=== PATIENT | female | born 1940 | race Caucasian/White ===

== ENCOUNTER 2018-01-20 06:30 | Day surgery (SDC) | payer BC ==
[2018-01-06 14:49] LABS: Absolute Lymphocytes (CBC) 0.9 K/uL (0.7-4.9); Absolute Monocytes 0.4 K/uL (0.1-1.3); Absolute Neutrophil 2.4 K/uL (1.8-8.0); Basophils % 0.9 % (0-1.3); Eosinophils % 1.6 % (0-4.4); Hematocrit 39.8 % (36.0-45.0); Lymphocytes % 23.9 % (15.3-44.8); MCH 32.2 pg (27.0-35.0); MCV 97.2 fL (80-100); MPV 9.3 fL (7.6-11.3)
[2018-01-06 14:52] LABS: Protime INR 1.23
[2018-01-06 17:43] LABS: Potassium 3.7 mmol/L (3.5-5.1)
[2018-01-07 10:39] LABS: Urine Appearance CLEAR; Urine Bilirubin NEGATIVE (NEG); Urine Blood NEGATIVE (NEG); Urine Color YELLOW; Urine Glucose NEGATIVE (NEG); Urine Protein NEGATIVE (NEG); Urine Urobilinogen 0.2 mg/dL (0.2-1.0)
[2018-01-07 10:42] LABS: Urine Microscopic Reflex NO UMIC
--- NOTE | 2018-01-08 06:59 | EKG ---
Test Date: 2018-01-06 Test Time: 13:47:21 Chocolate Molder: MYNOR MEASUREMENT RESULTS: Intervals: Rate: 73 UT: 176 QRSD: 104 QT: 376 QTc: 414 [place]: P: 56 UT: 176 QRS: 78 T: 50 INTERPRETIVE STATEMENTS: Normal sinus rhythm Possible Lateral infarct, age undetermined Abnormal ECG Compared to ECG 06/04/2012 08:33:25 Myocardial infarct finding now present Electronically Signed On 01-08-18 06:55:28 CDT by Francis Pacheco
--- OUTSIDE RECORDS SUMMARY | 2018-01-20 06:32 | XMS REPORT | Continuity of Care Document ---
:1940 Author Organization Interface Problems Problem Status Onset Classification Date Comments Source Date Reported G20.[address] Spinal Resolved Problem 01/02/2017 Pundendal [facility] nerve root nerve Medical finding<sup entrapment Center >1</sup> surgery (sacral nerve knotted and release done) Medications Medication Details Route Status Patient Ordering Order Source Instructions Provider Date Allergies, Adverse Reactions, Alerts Substance Category Reaction Severity Reaction Status Date Comments Source type Reported acetaminophen Assertion Drug Active [facility] aspirin Assertion Drug Active [facility] codeine Assertion Drug Active [facility] Darvocet A500 Assertion Drug Active [facility] Neurontin Assertion Drug Active [facility] NKDA Assertion Drug Active [facility] Talwin Assertion Drug Active [facility] traMADol Assertion Drug Active [facility] Vicodin Assertion Drug Active [facility] Immunizations Immunization Date Given Site Status Last Updated Comments Source Results Order Results Value Reference Date Interpretation Comments Source Name Range Brain Brain EXAM: NM Brain Imaging SPECT 12/30 - [facility] scan scan /2016 - Medical SPECT SPECT NM This report was dictated by a Radio Frequency Engineer/ Fellow. I have personally reviewed the images as Center NM well as the Resident's interpretation and agree with the findings. DATE: 12/30/2016 at 1456 hours Read by: Daniel Somers MD Resident: Daniel Somers MD Dictated Date/time: 12/30/16 16:25 Electronically Signed by: Nelly Coello MD 12/30/16 16:46 FINAL REPORT INDICATION: evaluate for Parkinson disease COMPARISON: None TECHNIQUE: After intravenous administration of 4.6 mCi of I-123 Ioflupane, delayed SPECT images of the head were obtained at 4 hours post injection. FINDINGS: Right striatum: There is absent tracer uptake in the right putamen with a Z score of -1.95 (Z scores represent standard deviation from normal age match population and are significant if less than -1.6). There is mild/moderate decreased tracer uptake in the right caudate with a Z score of -0.57. The right striatum contributes 38% of the remaining dopamine transporter function with a Z score of -1.51. Left striatum: Markedly decreased tracer uptake in the left putamen with a Z score of - 0.99. Tracer uptake is normal in the left caudate with a Z score of 0.42. The left striatum contributes 62% of the remaining dopamine transporter function with a Z score of -0.4 . The remainder of tracer distribution in background brain parenchyma is within normal limits. IMPRESSION: The scan findings are suggestive of dysfunction of the dopamine transporters in the bilateral putamina and right caudate suggestive of Parkinson disease. Vital Signs Vital Sign Value Date Comments Source Encounters Location Location Encounter Encounter Reason Attending ADM DC Status Source Details Type Number For Provider Date Date Visit [facility] Outpatient [id number] Edy Hung 12/30 12/31 [facility] Danie Mcnamara Jr /2016 [facility] Procedures Procedure Code Date Perfomer Comments Source Abdominal [id number] for Endometriosis - [facility] hysterectomy<tolliver done August 1973 Also Medical p>1, 2</sup> endometriosis Center surgery done in October 1978 Appendectomy<tolliver [id number] June 1963 [facility] p>3</sup> [facility] Carpal tunnel [id number] October 1998 for right [facility] release<sup>4</ hand Medical sup> Center Carpal tunnel [id number] September 1998 for left [facility] release<sup>5</ hand Medical sup> Center Hip [id number] August 2008 - right [facility] replacement<sup hip Medical >6</sup> Center Laminectomy<sup [id number] June 2007 Herniated disc [facility] >7</sup> November 2007 Herniated disc [facility] Lumbar spinal [id number] January 2009 (L4 - [facility] fusion<sup>8</s L5) Medical up> Center Ovarian [id number] abdominal surgery - [facility] cystectomy<sup> October 1969 Medical 9</sup> Center Release of [id number] July 2010 [facility] trigger Medical thumb<sup>10</s Center up> Tonsillectomy<s [id number] January 1964 [facility] up>11</sup> Medical Center
[2018-01-20] MEDS ORDERED: CEFTRIAXONE/SWI 1gm 1 GM/10 ML SYR IV SCH (07:30)
[2018-01-20] MEDS ORDERED: Ringers Lactate 1,000 ML IV ONE (07:49)
[2018-01-20] MEDS ORDERED: NS 0.9% VIAL 20 ML ONE (07:50)
[2018-01-20] MEDS ORDERED: NA CHLORIDE 0.9% 1,000 ML ONE (07:50)
[2018-01-20] MEDS: BOTU TOX TYPE A 100 UNIT/VIAL ID ONE ×2 (07:58→09:25)
[2018-01-20] MEDS ORDERED: LIDOCAINE 2% MPF 5 ML VIAL ONE (09:00)
[2018-01-20] MEDS ORDERED: PROPOFOL 200 MG/20 ML VIAL IV ONE (09:00)
[2018-01-20] MEDS ORDERED: MIDAZOLAM HCL 2 MG/2 ML INJ ONE (09:00)
--- NOTE | 2018-01-20 11:57 | OP ---
Date of Procedure: 01/20/2018 Surgeon: Smitha Cadena MD Counterperson: None. Preoperative Diagnosis: Refractory overactive bladder. Postoperative Diagnosis: Refractory overactive bladder. Procedures Performed: Cystoscopy, injection of Botox in the bladder. Anesthesia: MAC. Complications: None. Estimated Blood Loss: Minimal. Drains: None. Specimens: None. Indications For Procedure: The patient is a 77-year-old who has severe symptoms of urgency and frequ ency with urgency also associated with urgency, urinary incontinence, diagnosed with overactive bladd er. Lifestyle modifications that have been tried, she tried on anticholinergic and beta 3 agonist, b oth of them were ineffective to control her symptoms adequately. We talked about sacral neuromodulat ion and Botox injections, and she understood the benefits and risks of both, urinary retention and re current bladder infections were all discussed. She decide to proceed with Botox injections so I cons ented her. She also has some adrenal insufficiency for which she takes hydrocortisone or fludrocorti sone. So, this was discussed with Anesthesia and it was thought that it was not necessary to give he r stress dose of steroids to help in this procedure. She was carefully monitored. Her blood pressur e stayed stable during the procedure. She also had medical clearance with her timber skidder, Dr. Puri. Procedure In Detail: After the patient was brought back to the OR, after re-consenting the patient t chon, she was placed in a supine fashion on the operating table. MAC was given, she was placed in do rsal lithotomy position using Anson stirrups. Prep of the vulva, vagina, and perineum were done. Sh e was draped appropriately. Cystoscopy with 17-Lithuanian sheath, 30-degree lens, and normal saline were done. The bladder was filled to about 250 mL. There was adequate distention without overdistention . So at this point, 100 units of Botox were diluted in 10 mL of normal saline to prepare a solution and this was loaded in a syringe. The operative port of the cystoscope was used to insert the needle . The needle was set at 4 mm for depth above the level of the trigone after the trigone and both ure ters were identified, 7 injections in each row were placed, 20 injections of the Botox each containin g 0.5 mL, 2 further were placed to flush the solution in the needle catheter. So, 22 injections were finally given in 3 rows. The patient tolerated the procedure well. There was minimal bleeding. He r bladder was irrigated and drained, then repeat cystoscopy was performed. No evidence of any bleedi ng. No tumors. The rest of the bladder was unremarkable completely. The bladder was then drained a nd she was recovered from anesthesia. Instrument, needle, and sponge counts were done and were corre ct at the end of the case. The patient tolerated. She will follow up with me in 5 days for a bladde r voiding trial and in 10 days for first week postop. She has Macrobid, was prophylaxis that was sta rted at home, and she will continue that 100 mg daily for 6 more days. DES/VITA Voice ID: [id number] Report ID: [id number]
== END 2018-01-20 10:29 | disposition home or self-care (01) ==
LOC: OR 06:30
PROVIDERS: ATTEND Obstetrics & Gynecology
PROC: 0TVC8ZZ Restriction of Bladder Neck, Via Natural or Artificial Opening Endoscopic (ICD-10-PCS; principal; 2018-01-20 08:30)
DX: N32.81 Overactive bladder (principal); E03.9 Hypothyroidism, unspecified; I48.91 Unspecified atrial fibrillation; K21.9 Gastro-esophageal reflux disease without esophagitis; I95.9 Hypotension, unspecified; M79.7 Fibromyalgia; G20 Parkinson's disease; I73.00 Raynaud's syndrome without gangrene; Z79.01 Long term (current) use of anticoagulants; Z88.6 Allergy status to analgesic agent; Z80.3 Family history of malignant neoplasm of breast; Z82.49 Family history of ischemic heart disease and other diseases of the circulatory system
CPT/HCPCS: 36415; 80048; 81003; 85025; 85610; 85730; 86850; 86900; 86901; 93005; J0585; J0696; J2250; J7030

== ENCOUNTER 2018-12-23 08:24 | Day surgery (SDC) | payer BC ==
--- OUTSIDE RECORDS SUMMARY | 2018-12-23 08:27 | XMS REPORT ---
:1940 [facility] Address [address] [place] [address] Dr. Burnett [address] [place] [id number] Care Team Providers Name Role Phone Unavailable Unavailable Unavailable Problems This patient has no known problems. Allergies, Adverse Reactions, Alerts This patient has no known allergies or adverse reactions. Medications This patient has no known medications.
--- OUTSIDE RECORDS SUMMARY | 2018-12-23 08:27 | XMS REPORT | Continuity of Care Document ---
:1940 Author Organization [employer] Care Team Providers Name Role Phone [employer] Unavailable Unavailable Problems Problem Status Onset Classification Date Comments Source Date Reported G20.[address] Spinal Resolved Problem 01/02/2017 Pundendal [facility] nerve root nerve Medical finding1 entrapment Center surgery (sacral nerve knotted and release done) Medications No Data Provided for This Section Allergies, Adverse Reactions, Alerts Substance Category Reaction Severity Reaction Status Date Comments Source type Reported acetaminophen Assertion Drug Active [facility] aspirin Assertion Drug Active [facility] codeine Assertion Drug Active [facility] Darvocet A500 Assertion Drug Active [facility] Neurontin Assertion Drug Active [facility] Talwin Assertion Drug Active [facility] traMADol Assertion Drug Active [facility] Vicodin Assertion Drug Active [facility] Immunizations No Data Provided for This Section Results No Data Provided for This Section Pathology Reports No Data Provided for This Section Diagnostic Reports Report Value Date Source Brain scan SPECT NM EXAM: [facility] Imaging SPECT 12/30/2016 [facility] DATE: 12/30/2016 at 1456 hours Center INDICATION: evaluate for Parkinson disease COMPARISON: None TECHNIQUE: After intravenous administration of 4.6 mCi of I-123 Ioflupane, delayed SPECT images of the head were obtained at 4 hours post injection. FINDINGS: Right striatum: There is absent tracer uptake in the right putamen with a Z score of -1.95 ( Z scores represent standard deviation from normal age [...] and right caudate suggestive of Parkinson disease. Consultation Notes No Data Provided for This Section Discharge Summaries No Data Provided for This Section History and Physicals No Data Provided for This Section Vital Signs No Data Provided for This Section Encounters Location Location Encounter Encounter Reason Attending ADM DC Status Source Details Type Number For Provider Date Date Visit [facility] Out[facility] [id number] Edy Hung 12/30 12/31 [facility] Danie Anders Jr /2016 [facility] Procedures Procedure Code Date Perfomer Comments Source Abdominal [id number] for Endometriosis - [facility] hysterectomy<tolliver done August 1973 Also Medical p>1, 2</sup> endometriosis Center surgery done in October 1978 Appendectomy<tolliver [id number] June 1963 [facility] p>3</sup> [facility] Carpal tunnel [id number] October 1998 for right [facility] release<sup>4</ hand Medical sup> Center Carpal tunnel [id number] September 1998 for left [facility] release<sup>5</ hand Medical sup> Center Hip [id number] August 2008 - right [facility] replacement<sup hip Medical >6</sup> Center Laminectomy<sup [id number] June 2007 Herniated disc [facility] >7</sup> November 2007 Herniated disc [facility] Lumbar spinal [id number] January 2009 (L4 - [facility] fusion<sup>8</s L5) Medical up> Center Ovarian [id number] abdominal surgery - [facility] cystectomy<sup> October 1969 Medical 9</sup> Center Release of [id number] July 2010 [facility] trigger Medical thumb<sup>10</s Center up> Tonsillectomy<s [id number] January 1964 [facility] up>11</sup> Medical Center Assessment and Plan No Data Provided for This Section Plan of Care No Data Provided for This Section Social History Social History Date Source Social History TypeResponse 12/31/2016 [facility] Family History No Data Provided for This Section Advance Directives No Data Provided for This Section Functional Status No Data Provided for This Section
--- OUTSIDE RECORDS SUMMARY | 2018-12-23 08:27 | XMS REPORT | Summary of Care ---
:1940 Author Organization [facility] Address [address] [place] [address] Care Team Providers Name Role Phone Breanne Campbell MD Primary Care Provider Encounter Details Date Type Department Care Team Description 12/16/2018 Orders Only [facility] Doctor Unassigned, No 301 [facility] Name [place] [phone] [facility] [place] [id number] Allergies Active Allergy Reactions Severity Noted Date Comments Codeine Nausea and/or Vomiting 01/13/2018 Pentazocine Lactate Hives 01/13/2018 Rapid heart rate, itching Tramadol Dizziness, 01/13/2018 Hallucinations, Itching Acetaminophen Hypertension 01/13/2018 Hives, itching Tramadol Hcl Dizziness, 01/13/2018 Hallucinations, Itching Hydrocodone-Acetaminophe Hives, Itching, 01/13/2018 n Hypertension documented as of this encounter (statuses as of 12/20/2018) Medications Medication Sig Dispensed Refills Start Date End Date Status propafenone 150 mg Take 150 mg by 0 Active tablet mouth 3 (three) times daily. XARELTO 20 mg tablet TAKE 1 TABLET BY 3 10/26/2017 Active MOUTH EVERY DAY WITH EVENING MEAL docusate sodium (COLACE Take by mouth 2 0 Active ORAL) (two) times daily. loratadine (CLARITIN) Take 10 mg by 0 Active 10 mg tablet mouth daily. simvastatin 10 mg Take 10 mg by 0 Active tablet mouth at bedtime. sulfamethoxazole-trimet TAKE 1 TABLET BY 0 06/22/2018 Active hoprim 800-160 mg per MOUTH TWICE A tablet DAY FOR 7 DAYS amitriptyline 10 mg TAKE 1 TABLET BY 0 06/22/2018 Active tablet MOUTH AT BEDTIME FOR 30 DAYS conjugated estrogens Insert 1 g into 30 g 5 07/15/2018 Active 0.625 mg/gram vaginal vagina creamIndications: SEE-INSTRUCTIONS Postmenopausal atrophic . Use small vaginitis amount twice a week vaginally cyanocobalamin, vitamin Take by mouth. 0 Active B-12, (VITAMIN B12 ORAL) levothyroxine 50 mcg Take 1 tablet by 90 tablet 3 07/20/2018 Active tablet mouth every morning. fludrocortisone 0.1 mg Take 0.1 mg by 0 Active tablet mouth as needed. carbidopa-levodopa Take 1 capsule 90 capsule 3 10/11/2018 Active (RYTARY) 61.25-245 mg by mouth 3 CpSR (three) times daily. documented as of this encounter (statuses as of 12/20/2018) Active Problems Problem Noted Date Pulmonary nodule 06/27/2018 Overview: Per CT 05/2018 Bronchiectasis 06/27/2018 Overview: Per CT 05/2018 B12 deficiency 05/10/2018 Overview: B12 <400 Right upper quadrant abdominal pain 04/27/2018 Primary hypothyroidism 04/21/2018 Blood pressure elevated without history of HTN 04/21/2018 Parkinson's disease 04/20/2016 Interstitial cystitis Atrial fibrillation Arthritis Allergic rhinitis Fibromyalgia Hyperlipidemia Osteoporosis Hiatal hernia documented as of this encounter (statuses as of 12/20/2018) Social History Tobacco Use Types Packs/Day Years Used Date Never Smoker Smokeless Tobacco: Never Used Alcohol Use Drinks/Week oz/Week Comments No Sex Assigned at Date Recorded Not on file Job Start Date Occupation Industry Not on file Not on file Not on file Travel History Travel Start Travel End No recent travel history available. documented as of this encounter Last Filed Vital Signs Not on filedocumented in this encounter Plan of Treatment Date Type Specialty Care Team Description 01/27/2019 Office Visit Pulmonary Disease Cori Bates DO [address] [place] [address] 02/10/2019 Office Visit Urology Francesco Arita MD [address] [phone] 07/25/2019 Office Visit Endocrinology Diabetes & Rafia Finn MD Metabolism Health Maintenance Due Date Last Done Comments DTaP,Tdap,and Td Vaccines (1 - Tdap) 1961 Zoster Recombinant Vaccine (SHINGRIX) (1 of 2) 1992 Medicare Wellness Visit 2007 Osteoporosis Screening 2007 PNEUMOCOCCAL VACCINES 65+ (1 of 2 - PCV13) 2007 INFLUENZA VACCINE (#1) 2018 02/03/2018 documented as of this encounter Procedures Procedure Name Priority Date/Time Associated Diagnosis Comments REFERRAL- Routine 12/16/2018 12:01 AM CDT REQUEST/RESPONSE documented in this encounter Results Not on filedocumented in this encounter Insurance Payer Benefit Plan Subscriber ID Effective Dates Phone Address Type / Group [facility] [id number] 2012-Madeline [phone] [address] PPO/POS [place] - OUT OF [id number] [place] [address] documented as of this encounter
[2018-12-23] MEDS ORDERED: Zoledronic Acid/Mannitol/Water 5 MG/100 ML INFUS.BOT IV ONE (08:45)
== END 2018-12-23 09:25 | disposition home or self-care (01) ==
LOC: DS 08:24
PROVIDERS: ATTEND Obstetrics & Gynecology
DX: M81.0 Age-related osteoporosis without current pathological fracture (principal)
CPT/HCPCS: 96365; J3489

== ENCOUNTER 2020-03-21 07:44 | Day surgery (SDC) | payer BC ==
--- OUTSIDE RECORDS SUMMARY | 2020-03-21 07:48 | XMS REPORT | Continuity of Care Document ---
:1940 Author Organization [facility] Information [place] Care Team Providers Name Role Phone [facility] Information [place] Unavailable Un available Problems Problem Status Onset Classification Date Comments Sour e Date Reported Hypokalemia 04/18/ / [facility] and 2019 0 SENT BY KOLE DIAMOND Active 04/18/ Raoul rial POTASSIUM 2018 [place] UNK Active [facility] 2018 Danie CYSTRO Active [facility] 2018 Danie R33.9 - RETENTION OF Active OPID URINE, UNSPECIFIE R 2019 [place] G20.[address] Insomnia Active [facility] 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[facility] Meralgia Active [facility] Paresthetica 3 [facility] Restless Legs Active [facility] Syndrome 3 [facility]icians Atrial fibrillation Resolved Problem Medical (disorder) 0 Group, Sarah Gaona Cystitis (disorder) Resolved Problem Medical 0 Group, Sarah Gaona Disease of thyroid Resolved Problem HYPOTHYROID ISM Medical gland (disorder) 0 Doug up, Sarah Gaona Hypercholesterolemia Resolved Problem Medical (disorder) 0 Group, Sarah Gaona Parkinson's disease Resolved Problem Medical (disorder) 0 Group, Sarah Gaona Spinal nerve root Resolved Problem [place] [facility] Medical finding (finding) 0 entrapment G mon[place], surgery (sacral [place] nerve knotted [facility] done) Sarah Gaona Medications Medication Details Route Status Patient Ordering Order Source Instructions Provider Date dexamethasone Route: IV, Inactive [place] (ANES) Drug form: 2019 INJ, ONCE, Stop date: 04/22/19 10:27:00 ACUTE CARE ASSISTANT glycopyrrolate Route: IV, Inactive [place] (ANES) Drug form: 2020 INJ, ONCE, Stop date: 04/22/19 10:22:00 ACUTE CARE ASSISTANT ondansetron Route: IV, Inactive [place]la and (ANES) Drug form: 2019 INJ, ONCE, Stop date: 04/22/19 10:16:00 ACUTE CARE ASSISTANT fentaNYL (ANES) Route: IV, Inactive [place] Drug form: 2019 INJ, ONCE, Stop date: 04/22/19 10:11:00 ACUTE CARE ASSISTANT propofol (ANES) Route: IV, Inactive [place] Drug form: 2019 INJ, ONCE, Stop date: 04/22/19 10:11:00 ACUTE CARE ASSISTANT lidocaine (ANES) Route: IV, Inactive [place] Drug form: 2019 INJ, ONCE, Stop date: 04/22/19 10:11:00 ACUTE CARE ASSISTANT ciprofloxacin Route: IV, Inactive [place] (ANES) Drug form: 2019 INJ, ONCE, Stop date: 04/22/19 10:01:00 ACUTE CARE ASSISTANT Lactated Ringers Route: IV, Inactive [place] Injection IV Total 2020 (ANES) 1000 mL Volume: 1,000, Start date: 04/22/19 9:26:00 ACUTE CARE ASSISTANT, Stop date: 04/22/19 10:26:00 ACUTE CARE ASSISTANT Calcium Chloride 1,000 mL, Inactive [place] 0.0014 MEQ/ML / Rate: 75 2020 Potassium ml/hr, Chloride 0.004 Infuse over: MEQ/ML / Sodium 13.3 hr, Chloride 0.103 Route: IV, MEQ/ML / Sodium Dosing Lactate 0.028 Weight 50 MEQ/ML Injectable kg, Total Solution Volume: 1,000, Start date: 04/22/19 7:26:00 ACUTE CARE ASSISTANT, Duration: 30 day, Stop date: 05/22/19 7:25:00 ACUTE CARE ASSISTANT, 1.48, m2, 0 Hydralazine Notes: (Same Inactive [place] as: 2019 Apresoline) Push over 5 minutes Metoprolol Notes: (Same Inactive [place] as: 2020 Lopressor) Push over 2 minutes Hydromorphone Notes: Same Inactive [place] as: Dilaudid 2020 Flumazenil Notes: (Same Inactive [place] as: 2020 Romazicon) Naloxone Notes: Same Inactive [place] d as Narcan 2020 Meperidine Notes: (Same Inactive [place] as: Demerol) 2020 "Use Precaution in Elderly, Seizure disorders, and Renal impairment&q uot; Ondansetron Notes: (Same Inactive [place] as: Zofran) 2019 MEDICATION WASTE Product Size: 4 mg Product Wasted: ___ mg Potassium Notes: Inactive [place] Chloride Infuse at a 2019 rate of 10 mEq/hr. (Same as: KCL) Sodium Chloride 1,000 mL, Inactive [place] 0.9% (Bolus) IV 1000 ml/hr, 2019 Infuse Over: 1 hr, Route: IV, 1,000, Drug form: INJ, ONCE, Priority: STAT, Dosing Weight 50 kg, Start date: 04/18/19 20:29:00 ACUTE CARE ASSISTANT, Stop date: 04/18/19 20:29:00 ACUTE CARE ASSISTANT, 0 potassium Notes: (Same Inactive [place] and chloride 20 mEq as: K-Dur 2019 oral tablet, 20) "Do Not extended release Crush" Give (KCL) with food and full glass of water For patients unable to swallow tablet, dissolve in one half glass of water. Allow about 2 minutes for the tablets to disintegrate . Stir before giving to prepare slurry and administer. Please exclude Patient&#[id number];s with feeding tube less than 14 Chinese (Dobhoff, J-tube etc) and pediatric and patients. Magnesium Sulfate Notes: Inactive [place] WASTE: F/P - 2019 Sink; E - [employer] Ciprofloxacin 500 500 mg = 1 Active Medical MG Oral Tablet tab, PO, 2019 Group [Cipro] Q12H, start taking on 04/19/19, X 3 day, # 6 tab, 0 Refill(s), Pharmacy: [facility]/pharmacy #[id number] cefpodoxime 100 100 mg = 1 Active Me dical mg oral tablet tab, PO, 2019 Group Q12H, X 7 day, # 14 tab, 0 Refill(s), Pharmacy: [facility]/pharmacy #[id number] Thyroxine Daily, 0 Active Medical Refill(s) 2018 Group Propafenone PO, 0 Active Medical Refill(s) 2019 Group Xarelto PO, 0 Active Medical Refill(s) 2018 Group Fludrocortisone 0.1 mg, PO, Active M edical Daily, 0 2018 Group Refill(s) Simvastatin PO, 0 Active Medical Refill(s) 2018 Group 8 HR Carbidopa 1 cap, PO, Active Med ical 61.25 MG / TID, 0 2018 Group Levodopa 245 MG Refill(s) Extended Release Oral Capsule [Rytary] Colace 2-in-1 PO, Bedtime, Active Me dical 0 Refill(s) 2018 Group Claritin Daily, 0 Active Medical Refill(s) 2018 Group gabapentin PO, 0 Active Medical Refill(s) 2018 Group Amitriptyline HCl ; Start Active 25 MG Oral Tablet Date: 2012 Physic ians 07/23/2012; End Date: (Active) Boniva 150 MG ; Start Active Oral Tablet Date: 2012 Physicians 06/11/2012 (Active) PredniSONE 20 MG ; Start Active Oral Tablet Date: 2012 Physicians 06/11/2012 (Active) LORazepam 1 MG ; Start Active Oral Tablet Date: 2012 Phys[facility] 06/11/2012 (Active) Crestor 10 MG ; Start Active Oral Tablet Date: 2011 [facility] 04/29/2011 (Active) Allergies, Adverse Reactions, Alerts Substance Category Reaction Severity Reaction Status Date Comments S ource type Reported Codeine drug drug Active [facility] Sulfate TABS allergy allergy Phy sicians TraMADol HCl drug drug Active UT TABS allergy allergy Physicia ns Acetaminophen drug drug Active UT CAPS allergy allergy Physicia ns Darvocet-N drug drug Active UT 100 TABS allergy allergy Physici ans Vicodin ES drug drug Active UT TABS allergy allergy Physicia ns Neurontin drug drug Active UT CAPS allergy allergy Physicia ns acetaminophen Assertion Drug Active Medical allergy Group aspirin Assertion Drug Active Med ical allergy Group codeine Assertion Drug Active Med ical allergy Group Darvocet A500 Assertion Drug Active Medical allergy Group Neurontin Assertion Drug Active M edical allergy Group Talwin Assertion Drug Active Med ical allergy Group traMADol Assertion Drug Active Me dical allergy Group Vicodin Assertion Drug Active Med ical allergy Group Immunizations No Data Provided for This Section Results Order Name Results Value Reference Date Interpretation Comments Justine rce Range URINE AND POC UA Color Yellow Yellow 05/17 [facility] *NA* Medical (05/17/19 10:10 AM) Group URINE AND POC UA Clear Clear 05/17 STOOL Turbidity *NA Medical (05/17/19 10:10 AM) Group URINE AND POC UA SG 1.015 <=1.030 05/17 STOOL Medical Group URINE AND POC UA pH 7.0 5.0 - 8.0 05/17 STOOL Medical Group URINE AND POC UA Prot Negative Negative 05/17 STOOL mg/dL mg/dL Medical Group URINE AND POC UA Glu Negative Negative 05/17 STOOL mg/dL mg/dL Medical Group URINE AND POC UA Ket Negative Negative 05/17 STOOL mg/dL mg/dL Medical Group URINE AND POC UA Bili Negative Negative 05/17 STOOL *NA* Medical (05/17/19 10:10 AM) Group URINE AND POC UA Bld Trace Negative 05/17 STOOL *ABN* Medical (05/17/19 10:10 AM) Group URINE AND POC UA Uro 0.2 0.1 - 1.0 05/17 STOOL Medical Group URINE AND POC UA Nit Negative Negative 05/17 STOOL *NA* Medical (05/17/19 10:10 AM) Group URINE AND POC UA Negative Negative 05/17 STOOL LeukEst *NA Medical (05/17/19 10:10 AM) Group ELECTROLYTE Potassium 3.9 3.5 - 5.1 04/22 S Lvl [place] CHEM PANEL Glucose Lvl 80 70 - 99 04/19 [place] CHEM PANEL BUN 13 7 - 22 04/19 [place] CHEM PANEL Creatinine 0.79 0.50 - 04/19 MH Lvl 1. [place] CHEM PANEL Sodium Lvl 143 135 - 145 04/19 [place] CHEM PANEL Potassium 2.9 3.5 - 5.1 04/19 Result Comment: [place] Critical Result(s) called to Alec Park RN_ at 04/18/2019 19:06 by meb. Read back OK. CHEM PANEL Chloride Lvl 104 95 - 109 04/19 [place] CHEM PANEL CO2 34 24 - 32 04/19 [place] CHEM PANEL AGAP 7.9 10.0 - 04/19 MH 20.0 /2018 [place] CHEM PANEL Calcium Lvl 9.1 8.5 - 10.5 04/19 [place] CHEM PANEL eGFR 72 04/19 Result Comment: The [place] eGFR is calculated using the CKD-EPI formula. In most young, healthy individuals the eGFR will be >90 mL/min/1.73m2 . The eGFR declines with age. An eGFR of 60-89 may be normal in some populations, particularly the elderly, for whom the CKD-EPI formula has not been extensively validated. Use of the eGFR is not recommended in the following populations:< br/>
Kim viduals with unstable creatinine concentration s, including patients and those with serious co-morbid conditions.<b r/>
Patie nts with extremes in muscle mass or diet.

The data above are obtained from the National Kidney Disease Education Program (NKDEP) which additionally recommends that when the eGFR is used in patients with extremes of body mass index for purposes of drug dosing, the eGFR should be multiplied by the estimated BMI. CHEM PANEL Glucose Lvl 92 70 - 99 04/18 [place] CHEM PANEL BUN 13 7 - 22 04/18 [place] CHEM PANEL Creatinine 0.85 0.50 - 04/18 MH Lvl 1. [place] CHEM PANEL Sodium Lvl 142 135 - 145 04/18 [place] CHEM PANEL Potassium 2.7 3.5 - 5.1 04/18 Result Comment: [place] Critical Result(s) called to Nitesh Tang MD at 04/18/2019 16:43 by [facility]. Read back OK. CHEM PANEL Chloride Lvl 104 95 - 109 04/18 [place] CHEM PANEL CO2 33 24 - 32 04/18 [place] CHEM PANEL AGAP 7.7 10.0 - 04/18 MH 20.0 [place] CHEM PANEL Calcium Lvl 9.0 8.5 - 10.5 04/18 [place] CHEM PANEL eGFR 67 04/18 Comment: The [place] eGFR is calculated using the CKD-EPI formula. In most young, healthy individuals the eGFR will be >90 mL/min/1.73m2 . The eGFR declines with age. An eGFR of 60-89 may be normal in some populations, particularly the elderly, for whom the CKD-EPI formula has not been extensively validated. Use of the eGFR is not recommended in the following populations:< br/>
Kim viduals with unstable creatinine concentration s, including patients and those with serious co-morbid conditions.<b r/>
Patie nts with extremes in muscle mass or diet.

The data above are obtained from the National Kidney Disease Education Program (NKDEP) which additionally recommends that when the eGFR is used in patients with extremes of body mass index for purposes of drug dosing, the eGFR should be multiplied by the estimated BMI. HEMATOLOGY WBC 4.3 3.7 - 10.4 04/18 [place] HEMATOLOGY RBC 4.12 4.20 - 04/18 MH 5.40 [place] HEMATOLOGY Hgb 13.2 12.0 - 04/18 MH 16.0 [place] HEMATOLOGY Hct 40.1 36.0 - 04/18 MH 48.0 [place] HEMATOLOGY MCV 97.3 80.0 - 04/18 MH 98.0 [place] HEMATOLOGY MCH 32.1 27.0 - 04/18 MH 31.0 [place] HEMATOLOGY MCHC 33.0 32.0 - 04/18 MH 36.0 [place] HEMATOLOGY RDW 13.6 11.5 - 04/18 MH 14.5 [place] HEMATOLOGY Platelet 204 133 - 450 04/18 [place] HEMATOLOGY MPV 8.4 7.4 - 10.4 04/18 [place] HEMATOLOGY INR 1.10 0.85 - 04/18 MH 1.17 [place] HEMATOLOGY PT 14.2 12.0 - 04/18 MH 14.7 /2019 [place] HEMATOLOGY PTT 40.7 22.9 - 04/18 MH 35.8 /2019 [place] HEMATOLOGY Segs 57.3 45.0 - 04/18 MH 75.0 /2019 [place] HEMATOLOGY Lymphocytes 27.2 20.0 - 04/18 MH 40.0 /2019 [place] HEMATOLOGY Monocytes 13.4 2.0 - 12.0 04/18 [place] HEMATOLOGY Eosinophils 1.4 0.0 - 4.0 04/18 [place] HEMATOLOGY Basophils 0.7 0.0 - 1.0 04/18 [place] HEMATOLOGY Neutrophils 2.5 1.5 - 8.1 04/18 MH # /2018 [place] HEMATOLOGY Lymphocytes 1.2 1.0 - 5.5 04/18 # /2018 [place] HEMATOLOGY Monocytes # 0.6 0.0 - 0.8 04/18 [place] HEMATOLOGY Eosinophils 0.1 0.0 - 0.5 04/18 MH # /2018 [place] URINE AND UA Turbidity Clear Clear 04/18 STOOL (04/18/19 3:47 PM) [place] and URINE AND UA Spec Grav 1.002 <=1.030 04/18 STOOL [place] URINE AND UA pH 7.0 5.0 - 8.0 04/18 STOOL [place] URINE AND UA Protein Negative Negative 04/18 [facility]OOL mg/dL mg/dL [place] URINE AND UA Glucose Negative Negative 04/18 [facility] mg/dL mg/dL [place] URINE AND UA Ketones Negative Negative 04/18 [facility] mg/dL mg/dL [place] URINE AND UA Bili Negative Negative 04/18 STOOL *NA* /2018 [place] (04/18/19 3:47 PM) URINE AND UA Blood Small Negative 04/18 STOOL *ABN* /2018 [place] (04/18/19 3:47 PM) URINE AND UA Nitrite Negative Negative 04/18 [facility] (04/18/19 3:47 PM) /2018 [place] and URINE AND UA Leuk Est Negative Negative 04/18 STOOL (04/18/19 3:47 PM) /2018 [place] and URINE AND UA WBC 1 0 - 5 04/18 STOOL /2018 [place] URINE AND UA RBC 1 0 - 2 04/18 STOOL [place] URINE AND UA Bacteria Occasional None Seen 04/18 MH STOOL /HPF /HPF [place] URINE AND UA Sq Epi None Seen 04/18 STOOL [place] URINE AND UA Color COLORLESS 04/18 STOOL [place] URINE AND UA <=1.0 0.1 - 1.0 04/18 STOOL Urobilinogen mg/dL [place] Culture: <10,000 04/18 Urine CFU/mL [place] Skin [place] URINE AND POC UA Color Yellow Yellow 04/04 STOOL *NA* /2018 Medical (04/04/19 10:44 AM) Grou p URINE AND POC UA Clear Clear 04/04 [facility] Turbidity *NA* Medical (04/04/19 10:44 AM) Grou p URINE AND POC UA SG >=1.030 <=1.030 04/04 STOOL *ABN* Medical (04/04/19 10:44 AM) Grou p URINE AND POC UA pH 7.0 5.0 - 8.0 04/04 STOOL Medical Group URINE AND POC UA Prot Negative Negative 04/04 [facility] mg/dL mg/dL Medical Group URINE AND POC UA Glu Negative Negative 04/04 [facility] mg/dL mg/dL Medical Group URINE AND POC UA Ket Negative Negative 04/04 [facility] mg/dL mg/dL Medical Group URINE AND POC UA Bili Negative Negative 04/04 STOOL *NA* Medical (04/04/19 10:44 AM) Grou p URINE AND POC UA Bld Trace Negative 04/04 STOOL *ABN* Medical (04/04/19 10:44 AM) Grou p URINE AND POC UA Uro 0.2 0.1 - 1.0 04/04 STOOL Medical Group URINE AND POC UA Nit Positive Negative 04/04 STOOL *ABN* Medical (04/04/19 10:44 AM) Grou p URINE AND POC UA Moderate Negative 04/04 STOOL LeukEst *ABN* Medical (04/04/19 10:44 AM) Grou p URINE AND POC UA Color Yellow Yellow 03/21 STOOL *NA* Medical (03/21/19 10:41 AM) Group URINE AND POC UA Clear Clear 03/21 STOOL Turbidity *NA* Medical (03/21/19 10:41 AM) Group URINE AND POC UA SG 1.010 <=1.030 03/21 STOOL Medical Group URINE AND POC UA pH 7.0 5.0 - 8.0 03/21 STOOL Medical Group URINE AND POC UA Prot Negative Negative 03/21 STOOL mg/dL mg/dL Medical Group URINE AND POC UA Glu Negative Negative 03/21 STOOL mg/dL mg/dL Medical Group URINE AND POC UA Ket Negative Negative 03/21 STOOL mg/dL mg/dL Medical Group URINE AND POC UA Bili Negative Negative 03/21 STOOL *NA* Medical (03/21/19 10:41 AM) Group URINE AND POC UA Bld Trace Negative 03/21 STOOL *NA* Medical (03/21/19 10:41 AM) Group URINE AND POC UA Uro 0.2 0.1 - 1.0 03/21 STOOL Medical Group URINE AND POC UA Nit Negative Negative 03/21 STOOL *NA* Medical (03/21/19 10:41 AM) Group URINE AND POC UA Small Negative 03/21 STOOL LeukEst *ABN* Medical (03/21/19 10:41 AM) Group Pathology Reports No Data Provided for This Section Diagnostic Reports Report Value Date Source Renal pyelogram PROCEDURE INFORMATION: 04/22/2019 [facility] retrograde DX Exam: IR Retrograde Urography with or without KU B Exam date and time: 04/22/2019 10:02 AM Age: 79 years old Clinical indication: Condition or disease; Addit ional info: /mgy4.43/0.4mins TECHNIQUE: Imaging protocol: Retrograde urography with or w ithout KUB. Contrast material: OMNI; Contrast volume: 100 ml ; Contrast route: IV; COMPARISON: ABDOMEN/PELVIS W IV CONTRAST CT 03/23/2019 2:33 P M FINDINGS: Fluoroscopic assistance was provided. Radiologis t was not present during the procedure. Intraoperative re view of these images was performed by the operating physician. Please refer to the procedure report for further details. Fluoroscopy time: 33.0 seconds Number of fluoro spot images: 8 Reference Air Kerma Dose: 4.43 mGy IMPRESSION: Intraoperative fluoroscopic imaging provided. Jose Miguel Salinas MD On 04/24/2019 19:08:44; VR [id number] Abdomen/Pelvis w IV Radiation Dose CTDIVOL = 0 (mGy): DLP = 305.77 (mGy-cm) 03/23/[address] PROCEDURE INFORMATION: Exam: CT Abdomen And Pelvis With Contrast Exam date and time: 03/23/2019 2:33 PM Age: 79 years old Clinical history: Pelvic and perineal pain; Rete ntion of urine, unspecified; Nocturia; Urgency of urination; Additional info: /r33.9 retention of urine, unspecified; R39.15 urgency of urination; R35.1 nocturia; R10.2 pelvic and perineal pain Interstitial cystitis; female pelv ic pain; nocturia; urinary urgency; incomplete bladder emptying; 79-year-ol d female reports history of urinary retention TECHNIQUE: Imaging protocol: Computed tomography of the abd omen and pelvis with intravenous contrast. Total DLP: 305.77 mGy-cm Radiation optimization: All CT scans at this facility use at least one of these dose optimization techniques: automated exposure control; mA and/or kV adjustment per patient size (includes targeted e xams where dose is matched to clinical indication); or iterative reconstructio n. Contrast material: OMNI 300; Contrast volume: 10 0 ml; Contrast route: IV; COMPARISON: No relevant prior studies available. FINDINGS: Lungs: Several scattered small clusters of mild micronodularity in the lung bases most compatible with multifocal scarring a nd/or small airway infection/inflammation. Liver: A small 1 cm uniformly hypervascular lesi on noted in the right hepatic lobe. There is a single 0.5 cm benign liver cyst . No other liver abnormality. Gallbladder and bile ducts: Normal. No calcified stones. No ductal dilation. Pancreas: Normal. No ductal dilation. Spleen: Normal. No splenomegaly. Adrenals: Normal. No mass. Kidneys and ureters: The right kidney is normal. The left kidney is normal. Both kidneys enhance normally. No hydronephrosis . Stomach and bowel: Normal stomach and duodenum. Normal small bowel. No small bowel obstruction. Mild moderate volume retained stool throughout the colon. Colon is normal. Appendix: No evidence of appendicitis. Intraperitoneal space: Unremarkable. No free air . No significant fluid collection. Vasculature: No acute vascular abnormality. No a bdominal aortic aneurysm. Lymph nodes: Unremarkable. No enlarged lymph nod es. Bladder: Mild wall thickening and hyperenhanceme nt of the urinary bladder, possible cystitis. Reproductive: Changes of hysterectomy. Bones/joints: Postoperative changes lumbar spine . Changes of right hip arthroplasty. No acute osseous abnormality or ag gressive osseous lesion. Soft tissues: Unremarkable. IMPRESSION: 1. Mild wall thickening and hyperenhancement of the urinary bladder, possible cystitis. 2. A nonspecific 1 cm uniformly hypervascular li dylan lesion, For low risk patients, no further follow-up. For high risk patients, follow-up CT or MRI in 6 months. May need more frequent follow-up in so me situations, such as a cirrhotic patient who is a liver transplant cand idate.likely a flash filling benign hemangioma. 3. Chronic findings as described. COMMENT: Consistent with the [employer]'s Incidental Findings Committee Report (J Am Korin Radiol 2010): Unless the patient's specific circumstances suggest otherwise, any liver lesio n 0.5 cm or less, any cystic kidney lesion less than 1.0 cm, and/or any adren al lesion 1.0 cm or less not otherwise characterized in this report as posses sing suspicious or indeterminate imaging features is/are highly lik luciana to be benign and do not require follow-up imaging or biopsy. Fei Stephenson MD On 03/24/2019 17:23:12; VR-POP [id number] Brain scan SPECT [place] EXAM: [place] Brain Imaging SPECT 12/30/2016 [facility] DATE: 12/30/2016 at 1456 hours C enter INDICATION: evaluate for Parkinson disease COMPARISON: None TECHNIQUE: After intravenous administra tion of 4.6 mCi of I-123 Ioflupane, delayed SPECT images of the head were obtained at 4 hours post injection. FINDINGS: Right striatum: There is absent tracer uptak e in the right putamen with a Z score of -1.95 (Z scores represent standard deviation from normal age match population and are significant if less than -1.6). There is mild/moderate decre ased tracer uptake in the right caudate with a Z score of -0.57. The right striatum contribut es 38% of the remaining dopamine transporter function with a Z score of -1.51. Left striatum: Markedly decreased tracer uptake in the left put amen with a Z score of -0.99. Tracer uptake is normal in the left caudate with a Z score of 0.42. The left striatum contribute s 62% of the remaining dopamine transporter function with a Z score of -0.4 . The remainder of tracer dist ribution in background brain parenchyma is within normal limits. IMPRESSION: The scan findings are sugges tive of dysfunction of the dopamine transporters in the bilateral putamina and right caudate suggestive of Parkinson disease. Consultation Notes No Data Provided for This Section Discharge Summaries No Data Provided for This Section History and Physicals No Data Provided for This Section Vital Signs Vital Sign Value Date Comments Source Temperature Oral (F) 97.6 F 03/12/2020 [facility] Height 154.94 cm 03/12/2020 [facility] Weight 48.636 03/12/2020 [facility] BMI Calculated 20.26 03/12/2020 [facility] Weight 48.636 09/13/2019 Medical Grou p Temperature Oral (F) 97.6 F 09/13/2019 [facility] Height 154.94 cm 09/13/2019 Medical Gr[facility] p Weight 50 09/13/2019 Medical Grou p BMI Calculated 20.83 09/13/2019 Medical Gr oup Height 154.94 cm 05/17/2019 [facility] p Weight 50 05/17/2019 Medical Grou p BMI Calculated 20.83 05/17/2019 Medical Gr [facility]up Respitory Rate 12 04/22/2019 [facility] [place] Systolic (mm Hg) 152 04/22/2019 [facility] [place] Diastolic (mm Hg) 72 04/22/2019 [facility] [place] Respitory Rate 14 04/22/2019 [facility] [place] Systolic (mm Hg) 127 04/22/2019 [facility] [place] Diastolic (mm Hg) 69 04/22/2019 [facility] [place] Respitory Rate 9 04/22/2019 [facility] [place] Systolic (mm Hg) 100 04/22/2019 [facility] [place] Diastolic (mm Hg) 53 04/22/2019 [facility] [place] Systolic (mm Hg) 169 04/19/2019 [facility] [place] Diastolic (mm Hg) 71 04/19/2019 [facility] [place] Systolic (mm Hg) 181 04/19/2019 [facility] [place] Diastolic (mm Hg) 76 04/19/2019 [facility] [place] Systolic (mm Hg) 168 04/19/2019 [facility] [place] Diastolic (mm Hg) 71 04/19/2019 [facility] [place] Respitory Rate 16 04/19/2019 [facility] Heart Rate 72 04/19/2019 [facility] Respitory Rate 16 04/19/2019 [facility] Temperature Oral (F) 97.7 F 04/19/2019 [facility] Height 154.94 cm 04/19/2019 [facility] BMI Calculated 20.83 04/19/2019 [facility] Weight 50 04/19/2019 [facility] Temperature Oral (F) 98.2 F 04/18/2019 [facility] Heart Rate 67 04/18/2019 [facility] Height 157.48 cm 04/18/2019 [facility] Weight 49.091 04/18/2019 [facility] BMI Calculated 19.79 04/18/2019 [facility] Height 154.94 cm 04/04/2019 [facility] Weight 50 04/04/2019 [facility] Gr[facility] p BMI Calculated 20.83 04/04/2019 [facility] Height 157.48 cm 03/21/2019 [facility] Weight 50 03/21/2019 [facility] BMI Calculated 20.16 03/21/2019 [facility] Encounters Location Location Encounter Encounter Reason Attending ADM [place] Stat us Source Details Type Number For Provider Date Date Visit AUDIT [id number] 04/26 /2012 [facility] AUDIT [id number] 05/07 [facility] AUDIT [id number] 06/01 [facility] AUDIT [id number] 06/06 [facility] AUDIT [id number] 06/11 /2012 [facility] AUDIT [id number] 06/21 [facility] EMD, [id number] 07/23 06/21 [place] Provider: RENETTA Mckeon, Status: Pen, Time: 8:20 AM AUDIT [id number] 07/23 [facility] RONAL, [id number] 08/30 07/23 [place] Provider: RENETTA Mckeon, Status: Pen, Time: 8:45 AM [facility] [id number] Edy Hung 12/30 12/31 Barbi Mcnamara /2016 [facility] Outpatient [id number] Nitesh 03/21 [facility] [place] [facility] Outpatient [id number] Nitesh 03/21 03/22 [facility] [id number] Nitesh 03/23 03/24 [facility] 0 [facility] Outpatient [id number] 03/25 [facility] 7 -URODYNAMIC /2018 Vi anna S, MG Outpatient [id number] Nitesh 03/25 03/26 [facility] 7 [facility] Outpatient [id number] Nitesh 03/30 [facility] 6 [place] [facility] Ambulatory [id number] Nitesh 03/30 03/30 Urology Pre-Reg [facility] [place] Outpatient [id number] Nitesh 04/04 [facility] 8 [place] MG Outpatient [id number] Nitesh 04/04 04/05 [facility] 8 [facility] Outpatient [id number] MED_ASST 04/11 Active [facility] 9 VISIT [place] MG Outpatient [id number] MED_ASST 04/11 04/12 Urology 9 VISIT /2018 [facility] Emergency [id number] Tamiko 04/19 04/19 [place] 7 [facility] Day Surgery [id number] Nitesh 04/22 04/22 [place] 5 [facility] Outpatient [id number] Nitesh 05/17 [facility] 0 [place] MG Outpatient [id number] Nitesh 05/17 05/18 Urology 0 [facility] Outpatient [id number] MED_ASST 09/07 [facility] 2 VISIT [place] MG Outpatient [id number] MED_ASST 09/07 09/08 Urology 2 VISIT /2019 [facility] Outpatient [id number] Nitesh 05/26 [facility] 1 [place] [facility] Outpatient [id number] Nitesh 09/12 09/13 Urology 1 [facility] Outpatient [id number] 03/12 [facility] [place] [facility] Outpatient [id number] Nitesh 03/12 03/13 Urology 3 [facility] Outpatient [id number] Nitesh 09/03 [facility] [place] Procedures Procedure Code Date [place] [address] Medical post-voiding residual 0 Doug up urine and/or bladder capacity by ultrasound, non-imaging Complex uroflowmetry 45541 [facility] edical (eg, calibrated 0 Group electronic equipment) Electromyography 60567 Medic al studies (EMG) of anal 9 Doug up or urethral sphincter, other than needle, any technique Voiding pressure 82375 Medic al studies, 9 Group intra-abdominal (ie, rectal, gastric, intraperitoneal) (List separately in addition to code for primary procedure) Complex 84443 Medical cystometrogram (ie, 9 Group calibrated electronic equipment); with voiding pressure studies (ie, bladder voiding pressure), any technique Abdominal [id number] for Endometriosis Medi ramone hysterectomy<sup>1, - done August 1973 Group, 2</sup> Also [place] endometriosis Medical surgery done in Center, October 1978 [facility] REBECA [place] Appendectomy<sup>3</s [id number] June 1963 Medical up> Group,[facility] OPIKarolyn [place] Carpal tunnel [id number] September 1998 for Medic al release<sup>4</sup> left hand Group ,[facility] [id number] October 1998 for Medic al release<sup>5</sup> right hand Group ,[facility] OPIKarolyn [place] Hip [id number] August 2008 - right Medic al replacement<sup>6</tolliver hip Doug up,MH p> [facility] REBECA [place] Hysterectomy [id number] Medical Group,[facility], OPIKarolyn [place] Laminectomy<sup>7</tolliver [id number] June 2007 Her niated disc Medical p> November 2007 Herniated dis c Group,[facility], OPIKarolyn [place] Lumbar spinal [id number] January 2009 (L4 Me dical fusion<sup>8</sup> - L5) Group, [facility], REBECA L[place] Ovarian [id number] abdominal surgery [facility] cystectomy<sup>9</sup - October 1969 Gr oup,[facility], OPIKarolyn [place] Release of trigger [id number] July 2010 Med ical thumb<sup>10</sup> Group, [facility], OPIKarolyn [place] Tonsillectomy<sup>11< [id number] January 1964 M Medical /sup> Group,[facility], REBECA [place] Assessment and Plan No Data Provided for This Section Plan of Care Plan of Care Date Source [QL] CALCIUM, IONIZED 06/11/2012 [facility] 06/11/2012 Routine Social History Social History Date Source Social History TypeResponse 03/12/2020 [facility] Smoking Status Never smoker; Exposure to Tobacco Smoke None; Cigarette Smoking Last 365 Days No; Reg Smoking Cessation Counseling No entered on: 03/12/20 Social History TypeResponse 04/22/2019 [place] Smoking Status Never smoker; Exposure to Tobacco Smoke None; Cigarette Smoking Last 365 Days No; Reg Smoking Cessation Counseling No entered on: 04/22/19 Social History TypeResponse 03/21/2019 [place] [place] Smoking Status Never smoker; Exposure to Tobacco Smoke None; Cigarette Smoking Last 365 Days No; Reg Smoking Cessation Counseling No entered on: 03/21/19 Social History TypeResponse 12/31/2016 [facility] Never A Smoker (Active) 07/23/2012 [facility] Never Drank Alcohol (Active) Living Independently With Spouse (Active) Family History Value Date Source Maternal history of Arthritis 07/23/2012 [facility] (V17.7); (Active) Maternal history of Brain Cancer (V16.8); (Active) Paternal history of Peptic Ulcer (Active) Fraternal history of Nephrolithiasis (Active) Maternal history of Arthritis 06/21/2012 [facility] (V17.7); (Active) Maternal history of Brain Cancer (V16.8); (Active) Paternal history of Peptic Ulcer (Active) Fraternal history of Nephrolithiasis (Active) Maternal history of Arthritis 06/11/2012 [facility] (V17.7); (Active) Maternal history of Brain Cancer (V16.8); (Active) Paternal history of Peptic Ulcer (Active) Fraternal history of Nephrolithiasis (Active) Maternal history of Arthritis 06/07/2012 [facility] (V17.7); (Active) Maternal history of Brain Cancer (V16.8); (Active) Paternal history of Peptic Ulcer (Active) Fraternal history of Nephrolithiasis (Active) Maternal history of Arthritis 06/02/2012 [facility] (V17.7); (Active) Maternal history of Brain Cancer (V16.8); (Active) Paternal history of Peptic Ulcer (Active) Fraternal history of Nephrolithiasis (Active) Maternal history of Arthritis 05/07/2012 [facility] (V17.7); (Active) Maternal history of Brain Cancer (V16.8); (Active) Paternal history of Peptic Ulcer (Active) Fraternal history of Nephrolithiasis (Active) Maternal history of Arthritis 04/26/2012 [facility] (V17.7); (Active) Maternal history of Brain Cancer (V16.8); (Active) Paternal history of Peptic Ulcer (Active) Fraternal history of Nephrolithiasis (Active) Advance Directives Order Name Results Value Date Source Advance Directives Advance Directives No Advance 07/23/2012 [facility] Directives available. Advance Directives Advance Directives No Advance 06/21/2012 [facility] Directives available. Advance Directives Advance Directives No Advance 06/11/2012 [facility] Directives available. Advance Directives Advance Directives No Advance 06/07/2012 [facility] Directives available. Advance Directives Advance Directives No Advance 06/02/2012 [facility] Directives available. Advance Directives Advance Directives No Advance 05/07/2012 [facility] Directives available. Advance Directives Advance Directives No Advance 04/26/2012 [facility] Directives available. Functional Status No Data Provided for This Section
--- OUTSIDE RECORDS SUMMARY | 2020-03-21 07:48 | XMS REPORT | Summary of Care ---
:1940 Author Organization [facility] Address [address] [place] [phone] Encounter HQ Braulio(FIN) [id number] Date(s): 03/12/20 - 03/12/20 [facility] [address] [address]- [phone] Discharge Disposition: Home or Self Care Attending Physician: Nitesh Tang MD Vital Signs Most recent to oldest [Reference Range]: 1 Height 154.94 cm (03/12/20 10:24 AM) Temperature Oral [96.4-99.1 DegF] 97.6 DegF (03/12/20 10:24 AM) Weight 48.636 kg (03/12/20 10:24 AM) Body Mass Index 20.26 m2 (03/12/20 10:24 AM) Problem List Condition Effective Dates Status Health Status Informant Afib(Confirmed) Resolved Cystitis(Confirmed) Resolved Thyroid disease(Confirmed)1 Resolved High cholesterol(Confirmed) Resolved Parkinsons disease(Confirmed) Resolved Spinal nerve root Resolved finding(Confirmed)2 [id number] nerve entrapment surgery (sacral nerve knotted and release done) Allergies, Adverse Reactions, Alerts Substance Reaction Severity Status codeine Active acetaminophen Active Darvocet A500 Active traMADol Active Talwin Active Vicodin Active Medications No Known Medications Results No data available for this section Immunizations No data available for this section Procedures Procedure Date Related Diagnosis Body Site Status Abdominal hysterectomy1, 2 C ompleted Appendectomy3 Completed Carpal tunnel release4 Compl eted Carpal tunnel release5 Compl eted Hip replacement6 Completed Hysterectomy Completed Laminectomy7 Completed Lumbar spinal fusion8 Comple robel Ovarian cystectomy9 Complete d Release of trigger thumb10 C ompleted [id number] Completed 1for Endometriosis - done August Also endometriosis surgery done in October 1978 3March [id number] 1998 for left [id number] 1998 for right entd7Sst 2008 - right [id number] 2007 Herniated disc November 2007 Herniated [id number] 2008 (L4 - L5)9abdominal surgery - October 1969 10April [id number] 1963 Social History Social History Type Response Smoking Status Never smoker; Exposure to To bacco Smoke None; Cigarette Smoking Last 365 Days No; Reg Smoking Cessation Counseling No entered on: 03/12/20 Assessment and Plan No data available for this section
--- OUTSIDE RECORDS SUMMARY | 2020-03-21 07:49 | XMS REPORT | Summary of Care ---
:1940 Author Organization [facility] - [facility] Address [address] [place] [id number] Care Team Providers Name Role Phone Breanne Campbell MD Primary Care Provider Reason for Referral Radiology Services (Routine) Status Reason Specialty Diagnoses / Referred By Referred To Procedures Contact Contact New Request Diagnostic Diagnoses Abnormal CT scan of lung Bronchiectasis without complication Cori Bates, Ernie Procedures XR CHEST 1 VW DO [facility] [place] [address] Reason for Visit Auth/Cert Status Reason Specialty Diagnoses / Referred By Referred To Procedures Contact Contact Ambulatory Surgical Diagnoses Bronchiectasis without complication [J47.9] Abnormal CT scan of lung [R91.8] Franchesca Dsu Procedures PA BRONCHOSCOPY W/CPTR-ASST IMAGE-GUIDED NAVIGATION [facility] CODING HELP ELECTROMAGNETIC NAVIGATION ENDOBRONCHIAL ULTRASOUND-TRANSBRONCHIAL FNA [address] [place] [address] Encounter Details Date Type Department Care Team Description 12/28/2019 Hospital Encounter Jessica Cori Reeves, Abnormal CT scan of Hospital [facility] [place] [address] [place] [id number] [place] [id number] Allergies Active Allergy Reactions Severity Noted Date Comments Codeine Nausea and/or Vomiting 01/13/2018 Pentazocine Lactate Hives 01/13/2018 Rapid he art rate, itching Tramadol Dizziness, 01/13/2018 Hallucinations, Itching Acetaminophen Hypertension 01/13/2018 Hives, itching Tramadol Hcl Dizziness, 01/13/2018 Hallucinations, Itching Hydrocodone-Acetaminophe Hives, Itching, 01/13/2018 n Hypertension documented as of this encounter (statuses as of 12/28/2019) Medications Medication Sig Dispensed Refills Start End Status Date Date propafenone 150 mg Take 150 mg 0 Discontinued tablet by mouth 3 020 (three) times daily. XARELTO 20 mg tablet TAKE 1 TABLET 3 12/27 Discontinued BY MOUTH 8 020 EVERY DAY WITH EVENING MEAL docusate sodium (COLACE Take by 0 Discontinued ORAL) mouth 2 (two) 020 times daily. loratadine (CLARITIN) 10 Take 10 mg by 0 0 Discontinued mg tablet mouth daily. 020 conjugated estrogens Insert 1 g 30 g 5 Discontinued 0.625 mg/gram vaginal into vagina 9 020 creamIndications: SEE-INSTRUCTI Postmenopausal atrophic ONS. Use vaginitis small amount twice a week vaginally cyanocobalamin, vitamin Take by 0 Discontinued B-12, (VITAMIN B12 ORAL) mouth. 020 levothyroxine 50 mcg Take 1 tablet 90 tablet 3 12/27 Discontinued tabletIndications: by mouth 0 020 Primary hypothyroidism every morning. carbidopa-levodopa Take 1 90 capsule 0 Discontinued (RYTARY) 61.25-245 mg capsule by 0 020 CpSR mouth 3 (three) times daily. simvastatin 10 mg Take 1 tablet 90 tablet 3 Discontinued tabletIndications: by mouth at 0 020 Annual physical exam, bedtime. Hypercholesterolemia Nebulizer & Compressor Use as 1 Each 0 Discontinued For Neb DeviIndications: directed 0 020 Bronchiectasis without complication albuterol 2.5 mg /3 mL Inhale 3 mL 2 60 Vial 11 12/20 Discontinued (0.083 %) nebulizer (two) times 0 020 solutionIndications: daily. Bronchiectasis without complication sodium chloride Inhale 1 Vial 60 Vial 11 Discontinued (HYPER-RYAN) 3.5 % 2 (two) times 0 020 NebuIndications: daily. Bronchiectasis without complication documented as of this encounter (statuses as of 12/28/2019) Active Problems Problem Noted Date Bronchiectasis without complication 12/09/2019 Overview: Added automatically from request for aruna angela [id number] Abnormal CT scan of lung 11/02/2019 Granulomatous lung disease 11/02/2019 Prediabetes 11/02/2019 Pulmonary nodule 06/27/2018 Overview: Per CT 05/2018 Bronchiectasis 06/27/2018 Overview: Per CT 05/2018 B12 deficiency 05/10/2018 Overview: B12 <400 Right upper quadrant abdominal pain 04/27/2018 Primary hypothyroidism 04/21/2018 Blood pressure elevated without history of HTN 019 Parkinson's disease 04/20/2016 Atrial fibrillation Arthritis Allergic rhinitis Fibromyalgia Hyperlipidemia Osteoporosis Hiatal hernia documented as of this encounter (statuses as of 12/28/2019) Resolved Problems Problem Noted Date Resolved Date Interstitial cystitis 10/20/2019 documented as of this encounter (statuses as of 12/28/2019) Immunizations Name Administration Dates Next Due Influenza Virus Vaccine 02/03/2018 documented as of this encounter Social History Tobacco Use Types Packs/Day Years Used Date Never Smoker Smokeless Tobacco: Never Used Alcohol Use Drinks/Week oz/Week Comments No Sex Assigned at Date Recorded Not on file COVID-19 Exposure Response Date Recorded In the last month, have you been in contact with No / Unsure 12/27/2019 8:26 AM CDT someone who was confirmed or suspected to have Coronavirus / COVID-19? documented as of this encounter Last Filed Vital Signs Vital Sign Reading Time Taken Comments Blood Pressure 168/71 12/28/2019 12:00 PM CDT Pulse 67 12/28/2019 12:00 PM CDT Temperature 36 C (96.8 F) 12/28/2019 10:41 AM CDT Respiratory Rate 20 12/28/2019 12:00 PM CDT Oxygen Saturation 95% 12/28/2019 12:00 PM CDT Inhaled Oxygen Concentration - - Weight 47.7 kg (105 lb 2.6 oz) 12/28/2019 6:39 AM CDT Height 157.5 cm (5' 2") 12/28/2019 6:39 AM CDT Body Mass Index 19.23 12/28/2019 6:39 AM CDT documented in this encounter Discharge Instructions Eloise Garner RN - 12/28/2019Discharge Instructions (Adult) ? The medication that was used will be acting in your system for the next 24 hours. You may feel a little drowsy and have impaired judgement and motor function. This feeling should wear off. Because the medication is still in your system for the next 24 hours, you should not: o Drive a car o Operate heavy machinery o Make important decisions ? You are responsible for having someone at home with you for the first 24 hours after surgery. You should rest the remainder of the day. Move slowly. After lying down, sit on the edge of the bed or chair for a moment before standing, have someone assist you in standing as you will be a little uncoordinated, off balance and weak. Also, if you have pets in your home, watch for them as you walk around your home. ? Take a deep breath and cough every 2-4 hours while awake to open your lungs and avoid respiratory complications. If you have had abdominal surgery, you may want to guard your stomach using a pillow to reduce pain. ? Anesthesia medications could cause nausea and vomiting. Eat lightly today avoiding foods that are greasy, spicy or otherwise irritating or slow to digest. If you get sick, wait a couple of hours, then try again starting with clear fluids and advancing to bland foods. Nausea should be resolved in 24 hours. ? Expect to experience some pain, the physician has prescribed pain medication to help. Take these medications as directed. Take a stool softener such as Colace to avoid constipation if taking an opioid pain medication such as those with codeine or hydrocodone. Apply ice every hour for 20 minutes and elevate the site, if applicable, to reduce pain. If it does not help or worsens, call the access center at [phone] or [phone] and have them refer you to your physicians team. ? You may experience a sore throat from intubation for a day or two. For relief, you may use throat lozenges, throat spray, or warm salt water gargles. ? If you are unable to urinate within five hours after your procedure and you feel that you are distended, call your physicians team at [phone] or [phone]. Tips on preventing a surgical site infection: ? Dont smoke or be around smoke ? If diabetic, keep your blood glucose or sugar under control ? Wash your hands often, do not touch the wound directly ? Keep sitting water aware from incision ? If prescribed, complete the entire course of antibiotics Call your doctor if having the following signs of infection: ? Increasing tenderness at incision, especially after day 3 ? Red streaks or increased redness at incision ? Bad smelling drainage from incision ? Fever greater than 101 degrees ? General feeling of exhaustion or tiredness that does not improve Tobacco Avoidance Exposure to tobacco either from smoking or from second hand smoke or smokeless tobacco is damaging to your health. This information is to encourage everyone to avoid tobacco exposure. It is recommendedthat you: ? Quit ? If you have already quit, continue your good work ? If you do not use tobacco, do not start Additional resources You may want to contact these organizations for further information on smoking and how to quit. [place] [employer], http://www.lungusa.org/stop-smoking/ [place] [employer], http://www.cancer.org/Healthy/StayAway fromTobacco/index [place] [employer], http://www.heart.org/HEARTORG/GettingHealthy/QuitSmoking/QWuitSmoking_[facility] _001085_SubHomePage.jsp documented in this encounter H&P Notes Bibi Roberts MD - 12/28/2019 8:07 AM CDT Pulmonary Medicine Clinic Note History of Present Illness Natty Armenta is a 79 year old female with PMH bronchiectasis, chronic cough, paf, HLD, hypothyroidism admitted for elective BAL/washings, EBUS-TBNA, and EMN. CT chest 10/25/19 demonstrated multiple abnormalities, including tree-in-bud opacities RUL/RLL/ELVIA, diffuse pulmonary fibrosis, RLL nodular lesion). She reports no interval changes in her health history since she was evaluated by Dr. Bates 12/09/2019. Notably, patient is on systemic AC w/ xarelto for PAF. Patient confirms that AC has been held prior to procedure. Current Medications No current facility-administered medications for this encounter. Past Medical History Past Medical History: Diagnosis Date Allergic rhinitis Arthritis Atrial fibrillation B12 deficiency 05/10/2018 B12 <400 Bronchiectasis 06/27/2018 Carpal tunnel syndrome Fibromyalgia Hiatal hernia Hyperlipidemia Hypothyroidism Interstitial cystitis Osteoporosis Parkinson's disease 2017 Prediabetes 11/02/2019 Pulmonary nodule 06/27/2018 Thyroid disease Past Surgical History: Procedure Laterality Date APPENDECTOMY COLONOSCOPY 2016 Dr. Hanson, no polyps CYST EXCISION Finger ESOPHAGOGASTRODUODENOSCOPY N/A 07/07/2018 Surgeon: Felicitas Vicente MD; Location: [facility] [place] HB INJ THERAPEUTIC CARPAL TUNNEL HYSTERECTOMY due to endometriosis LAMINECTOMY,>2 SGMT,LUMBAR LAPAROSCOPY,SURG,COLPOPEXY due to endometriosis NEUROMA EXCISION Rothman's neuroma excision, left foot 02/22, right foot 06/23 SURGICAL HISTORY OTHER (SHX) Pudendal nerve entrapment surgery TONSILLECTOMY TOTAL HIP ARTHROPLASTY Right TRIGGER FINGER RELEASE thumb Family History Problem Relation Age of Onset Breast Cancer Mother Hypertension Mother Skin Cancer Brother Hyperlipidemia Brother NE (myocardial infarction) Brother Social History Socioeconomic History Marital status: Spouse name: Not on file Number of children: Not on file Years of education: Not on file Highest education level: Not on file Occupational History Not on file Social Needs Financial resource strain: Not on file Food insecurity Worry: Not on file Inability: Not on file Transportation needs Medical: Not on file Non-medical: Not on file Tobacco Use Smoking status: Never Smoker Smokeless tobacco: Never Used Substance and Sexual Activity Alcohol use: No Drug use: No Sexual activity: Not on file Lifestyle Physical activity Days per week: Not on file Minutes per session: Not on file Stress: Not on file Relationships Social connections Talks on phone: Not on file Gets together: Not on file Attends baptism service: Not on file Active member of club or organization: Not on file Attends meetings of clubs or organizations: Not on file Relationship status: Not on file Intimate partner violence Fear of current or ex partner: Not on file Emotionally abused: Not on file Physically abused: Not on file Forced sexual activity: Not on file Other Topics Concern Not on file Social History Narrative Not on file Allergies: Codeine, Talwin [pentazocine lactate], Tramadol, Tylenol [acetaminophen], Ultram [tramadol hcl], and Vicodin [hydrocodone-acetaminophen] Immunizations: Immunization History Administered Date(s) Administered Influenza Virus Vaccine 02/03/2018 Review of Systems: General: - fever, - chills, - weight loss/increase, - dizziness, - fatigue, - change in appetite HEENT: - headache, - change in hearing, - change in vision, - sinus congestion, rhinorrhea, - post nasal drainage, - watery eyes, - sore throat Hematologic: - bleeding disorder Respiratory: +cough, +shortness of breath, +dyspnea on exertion, - wheezing - orthopnea, - PND Cardiovascular: - chest pain, - palpitations, - syncope, -lower extremity swelling, Gastrointestinal: - abdominal pain, - nausea, - vomiting, - diarrhea, - constipation, - melena, - hematochezia, - hematemesis Genitourinary: - dysuria, - hematuria, - increased frequency, - difficulty urinating, - difficulty initiating Neurologic: -weakness, -dizziness, -headache Endocrine: - heat/cold intolerance, -polyuria Musculoskeletal: - joint pain, - back pain, - muscle spasms Integument: - rash, - lesion Psych: -depression, -anxiety Physical Exam and Objective Data BP (!) 149/62 | Pulse 66 | Temp 36 C (96.8 F) (Tympanic) | Resp 16 | Ht 5' 2" (1.575 m) | Wt 105 lb 2.6 oz (47.7 kg) | SpO2 100% | BMI 19.23 kg/m Consitutional: NAD HEENT: moist mucus membranes Cardiovascular: RRR, no m/r/g Respiratory: CTAB, without wheezes, rales or rhonchi, no use of accessory muscles of respiration Gastrointestinal: soft, non-tender Neurologic: moves extremities spontaneously Psych: insight/judgment intact Integument: no rashes/lesions MSK: no LE edema Laboratory CBC BMP LFTs WHITE BLOOD CELL COUNT-Q (Thousand/uL) Date Value 10/24/2019 5.5 SODIUM-Q (mmol/L) Date Value 10/24/2019 141 ALKALINE PHOSPHATASE-Q (U/L) Date Value 10/24/2019 87 HEMOGLOBIN-Q (g/dL) Date Value 10/24/2019 12.8 POTASSIUM-Q (mmol/L) Date Value 10/24/2019 4.1 ALT-Q (U/L) Date Value 10/24/2019 14 HEMATOCRIT-Q (%) Date Value 10/24/2019 39.5 CALCIUM-Q (mg/dL) Date Value 10/24/2019 9.1 AST-Q (U/L) Date Value 10/24/2019 17 PLATELET COUNT-Q (Thousand/uL) Date Value 10/24/2019 208 CHLORIDE-Q (mmol/L) Date Value 10/24/2019 104 RED BLOOD CELL COUNT-Q (Million/uL) Date Value 10/24/2019 4.12 UREA NITROGEN (BUN)-Q (mg/dL) Date Value 10/24/2019 16 Cardio CREATININE-Q (mg/dL) Date Value 10/24/2019 0.85 No results found for: NTBNP Thyroid TSH, 3RD GENERATION-Q (mIU/L) Date Value 10/24/2019 2.57 No components found for: GLUC RESULTS REVIEWED: CT thorax 10/25/2019: FINDINGS: Comparison is made with previous CT scan of 06/29/2018. No focal lesions are seen in the thyroid gland. Trachea and central bronchial airways appear normal. Diffuse nodular infiltrative lesion is seen in the anteromedial right lower lung which is new since the previous study. Tree in bud type changes in the anterior basal left lower lung show interval worsening. Interval worsening also noted in ayoc-ee-nvs-type changes in the anteromedial left upper lung. Chronic changes of fibrosis noted involving portions of anterior medial right and left upper lung and there is worsening of chronic changes of pulmonary fibrosis with volume loss in the right middle lobe. Several new sites of wgjd-cu-muz-type changes noted involving right lower lung, portions of medial and posterior right upper lung. Several 1 cm size lymph nodes are seen surrounding the left side of the lower cervical esophagus, in the subcarinal space and anterior to the trachea, essentially unchanged. No pleural effusion or pericardial effusion. No compression fracture deformity in the thoracic vertebral bodies. Mild thoracic levoscoliosis and kyphosis is noted. Grossly unremarkable very dense breast tissue. Unremarkable small upper portions of the abdomen included in this examination. CONCLUSIONS: Multiple bilateral abnormal pulmonary findings, more involving the medial right lower lung. Many of the sites are new including large nodular type changes in the medial right lower lung when compared with previous CT scan of June 2018. Findings are worrisome for chronic active granulomatous type pulmonary infections including tuberculosis. Additional investigation is recommended including bronchoscopy with biopsy of anteromedial right lower lung. Assessment & Plan Natty Armenta is a 79 year old female with # Bronchiectasis # Chronic cough # Abnormal CT Chest (Tree-in-bud opacities RUL/RLL/ELVIA, diffuse pulmonary fibrosis, RLL nodular lesion) # PAF on systemic AC -Pt reports no interval changes in health history since last clinic visit 12/09/2019. Will consent patient & proceed w/ elective BAL/washings, EBUS- TBNA, and EMN. -Confirmed patient has held systemic AC prior to procedure Plan was reviewed with Dr Bates and discussed with the patient. All concerns were addressed and all questions answered. Bibi Roberts MD Fellow, [facility] Pulmonary & Critical Care Medicine Pager: [phone] Associated attestation - Cori Bates DO - 12/28/2019 8:59 AM CDTdocumented in this encounter Plan of Treatment Date Type Specialty Care Team Description 02/06/2020 Office Visit Endocrinology Diabetes & Kya Gould MD [address] [address] 02/09/2020 Office Visit Pulmonary Disease Cori Bates DO [address] [place] [address] Name Type Priority Associated Diagnoses Date/Ti me CYTO ORGAN LAB STAT 12/28/2019 9:4 4 AM ASPIRATION-FNA CDT CYTO BAL LAB STAT 12/28/2019 10:2 0 AM CDT XR CHEST 1 VW IMAGING Routine Abnormal CT scan of lung 12/28/2019 10:56 AM Bronchiectasis without CDT complication BODY FLUID CELL COUNT LAB STAT 2019 10:26 AM CDT AFB CULTURE LAB STAT 12/28/2019 10:2 6 AM CDT FUNGUS (ROUTINE) LAB STAT 12/28/2019 10:26 AM CULTURE CDT BODY FLUID DIRECT LAB STAT 12/28/2019 10:26 AM COUNT CDT BODY FLUID MANUAL LAB STAT 12/28/2019 10:26 AM DIFF CDT Name Type Priority Associated Diagnoses Order S chedule CYTO ORGAN ASPIRATION-FNA LAB Routine Re lease Upon Ordering for 1 Occurrences s tarting 12/28/2019 unti l 12/31/2019, 1 c ompleted SURGICAL PATHOLOGY EXAM LAB Routine Rele ase Upon Ordering for 1 Occurrences s tarting 12/28/2019 CYTO BAL LAB Routine Release Upon Or dering for 1 Occurrences s tarting 12/28/2019 unti l 12/31/2019, 1 c ompleted BODY FLUID CELL COUNT LAB Routine Releas e Upon Ordering for 1 Occurrences s tarting 12/28/2019 unti l 12/31/2019 AFB CULTURE LAB Routine Release Upon Or dering for 1 Occurrences s tarting 12/28/2019 unti l 12/31/2019 FUNGUS (ROUTINE) CULTURE LAB Routine Rel ease Upon Ordering for 1 Occurrences s tarting 12/28/2019 unti l 12/31/2019 BODY FLUID DIRECT COUNT LAB STAT Once for 1 Occurrences starting 2019 until 12/28/2019, 1 c ompleted RESPIRATORY CULTURE LAB Routine ONCE for 1 Occurrences starting 2019 until 12/28/2019 RESPIRATORY CULTURE LAB Routine ONCE for 1 Occurrences starting 2019 until 12/28/2019 BODY FLUID MANUAL DIFF LAB Routine ONCE for 1 Occurrences starting 2019 until 12/28/2019 Health Maintenance Due Date Last Done Comments DTaP,Tdap,and Td Vaccines (1 - Tdap) 1961 Zoster Recombinant Vaccine (SHINGRIX) (1 of 2) 1992 Medicare Wellness Visit 2007 Osteoporosis Screening 2007 PNEUMOCOCCAL VACCINES 65+ (1 of 1 - PPSV23) 2007 INFLUENZA VACCINE (#1) 2019 02/03/2018 Depression Screening 12/27/2020 12/28/2019 documented as of this encounter Procedures Procedure Name Priority Date/Time Associated Diagnosis Comme nts XR CHEST 1 VW Routine 12/28/2019 10:[address] scan of lung Bronchiectasis without complication Procedure Note - [facility], Radia nt Results Inft User - 12/28/2019 12:01 PM CDT EXAM: XR CHEST 1 VW 12/28/2019 10:46 AM. HISTORY: 79 years-old Female with s/p bronchoscopy . COMPARISON: Chest CT 020. TECHNIQUE: AP chest radiogra ph. FINDINGS: Lines and tubes/devices: Non e. Airspace opacities in right upper and right lower lung zones. There is no focal consolidation, pleural effusion or pneumothorax. The cardiomediastinal silhou ette is normal in size. No acute osseous abnormaliti es. IMPRESSION -No pneumothorax. Airspace o pacities in the right upper and right lower lung zones. Preliminary Report Dictated by Resident: Aníbal Posadas documented in this encounter Results Not on filedocumented in this encounter Visit Diagnoses Diagnosis Abnormal CT scan of lung - Primary Other nonspecific abnormal finding of bartolo ng field Bronchiectasis without complication Bronchiectasis without acute exacerbatio n documented in this encounter Administered Medications Medication Order MAR Action Action Date Dose Rate Site FENTanyl PF (SUBLIMAZE (PF)) injection 2 5 mcg 25 mcg, Slow IV Push, Q5MIN PRN, 4 doses, Starting Thu12/28/19 at 1043, Until Discontinued, Routine, Pain (scale 7-10), PACU FENTanyl PF (SUBLIMAZE (PF)) injection 25 Given 12/28/2019 11:29 AM CDT 25 mcg mcg 25 mcg, Slow IV Push, Q5MIN PRN, 4 doses, Starting Thu12/28/19 at 1043, Until Discontinued, Routine, Pain (scale 4-6), PACU Given 12/28/2019 11:20 AM CDT 25 mcg lactated ringers IV infusion 1,000 mL at 75 mL/hr, 1,000 mL, IV Infusion, CONT INUOUS, Starting Thu12/28/19 at 1045, Until Discontinued, Routine, PACU lidocaine 1% (PF) (XYLOCAINE) Given 12/28/2019 9:42 AM CDT 10 m L See Comment injection PRN, Starting Thu12/28/19 at 0942, Until Discontinued, Routine, Intra-op ondansetron (ZOFRAN (PF)) injection 4 mg 4 mg, Slow IV Push, PRN, 1 dose, Startin g Thu12/28/19 at 1043, Until Discontinued, Routine, Nausea and Vomiting (N/V), PACU Medication Order MAR Action Action Date Dose Rate Site lidocaine 4% (XYLOCAINE) 40 mg/mL Given 12/28/2019 11:15 AM CDT 160 mg (4 %) injection 160 mg 160 mg (4 mL), Endotracheal, ONCE, 1 dose, Thu12/28/19 at 1215, Routine, PACU documented in this encounter Insurance Payer Benefit Plan Subscriber ID Effective Dates Phone Address Type / Group [facility] [id number] 2010-[address] [phone] [address]PO/POS [place] - OUT OF t 87 [id number] [place] [address] documented as of this encounter
--- OUTSIDE RECORDS SUMMARY | 2020-03-21 07:49 | XMS REPORT | Continuity of Care Document ---
:1940 Author Organization [facility] t Address [address] [place] [address] Care Team Providers Name Role Phone Fernanda Campbell MD Attending Clinician Codey Tang Attending Clinician Doctor Unassigned, Name Attending Clinician Unavailable Louie MAX Attending Clinician VISIT, [facility] Attending Clinician Unavailable Armen Jj Attending Clinician Silvina Alegre Jr Attending Clinician Unavailable Problems Condition Condition Condition Status Onset Resolution Last Treating Co mments Source Name Details Category Date Date Treatment Clinician Date SENT BY Diagnosis Active 2018-042019-04-18 Me ten DIAMOND 19:30:00 l POTASSIUM SENT BY 00:00: Yadiel DIAMOND 00 POTASSIUM Active 04/18/2019 [facility] UNK Diagnosis Active 2018-042019-04-18 Mem oria 2-16 14:53:00 l UNK 00:00: Danie 00 Active 04/04/2019 [facility] CYSTRO Diagnosis Active 2018-042019-04-22 Mem oria 2-16 07:11:00 l CYSTRO 00:00: Danie 00 Active 04/04/2019 [facility] R33.9 - Diagnosis Active 2018-042019-04-05 Me caal RETENTION 2- 11:02:00 l OF URINE, R33.9 - 00:01: Herm josh UNSPECIFIE RETENTION 00 R OF URINE, UNSPECIFIE R Active 03/21/2019 REBECA Gaona G20.0 Diagnosis Active 2016-2016-12-30 Mem oria 9-01 10:25:00 l G20.0 00:00: Bard 00 Active 12/19/2016 [facility] Atrial Problem Resolve 2020-03-15 Raoul isabell fibrillati d 01:15:29 l on Atrial Danie (disorder) fibrillati on (disorder) Resolved Problem 03/15/2020 [facility] REBECA [place] Cystitis Problem Resolve 2020-03-15 Me moria (disorder) d 01:15:29 l Cystitis Hi n (disorder) Resolved Problem 03/15/2020 [facility] REBECA [place] Disease of Problem Resolve 2020-03-15 Memoria thyroid d 01:15:29 l gland Disease Danie (disorder) of thyroid gland (disorder) Resolved Problem 03/15/2020 HYPOTHYRO IDISM [facility] REBECA [place] Hyperchole Problem Resolve 2020-03-15 Memoria sterolemia d 01:15:29 l (disorder) Hi n Hyperchole sterolemia (disorder) Resolved Problem 03/15/2020 [facility] REBECA [place] Parkinson' Problem Resolve 2020-03-15 Memoria s disease d 01:15:29 l (disorder) Hi n Parkinson' s disease (disorder) Resolved Problem 03/15/2020 [facility] REBECA [place] Spinal Problem Resolve 2020-03-15 Raoul isabell nerve root d 01:15:29 l finding Spinal Bard (finding) nerve root finding (finding) Resolved Problem 03/15/2020 [facility] nerve entrapment surgery (sacral nerve knotted and release done) [facility] REBECA [place] Insomnia Problem Active 2012-07-23 Mem oria 14:21:24 l Insomnia Hi n Active 07/23/2012 [facility] 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 Me moria 14:21:24 l Bard 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3 [facility] Meralgia Problem Active 2012-07-23 Mem oria Parestheti 14:21:24 l ca Meralgia Hi n Parestheti ca Active 07/23/2012 [facility] Restless Problem Active 2012-07-23 Mem oria Legs 14:21:24 l Syndrome Restless Herm josh Legs Syndrome Active 3 [facility] Hypokalemi Problem 2018-2019-04-20 2019-04-20 Memoria a 2-30 23:16:45 23:16:45 l 18:00: Bard Hypokalemi 00 a 04/18/2019 04/20/2019 [facility] Allergies, Adverse Reactions, Alerts Allergy Allergy Status Severity Reaction(s) Onset Inactive Treating Comm ents Source Name Type Date Date Clinician Codeine Codeine Active Memoria Sulfate Sulfate l TABS TABS Danie TraMADol TraMADol Active Memori a HCl TABS HCl TABS l Danie Acetamin Acetamin Active Memori a ophen ophen l CAPS CAPS Danie Darvocet Darvocet Active Memori a -N 100 -N 100 l TABS TABS Danie Vicodin Vicodin Active Memoria ES TABS ES TABS l Danie Neuronti Neuronti Active Memori a n CAPS n CAPS l Bard acetamin acetamin Active Memori a ophen ophen l Danie aspirin aspirin Active Memoria l Bard codeine codeine Active Memoria l Danie Darvocet Darvocet Active Memori a A500 A500 l Danie Neuronti Neuronti Active Memori a n n l Danie Talwin Talwin Active Memoria l Danie traMADol traMADol Active Memori a l Bard Vicodin Vicodin Active Memoria l Danie Family History Family Member Diagnosis Comments Start Date Stop Date Source Unknown Family Family History 2012-04-26 2012-04-26 Memori al Bard Member 21:04:17 21:04:17 Social History Social Habit Start Date Stop Date Quantity Comments Source Social History 2012-07-23 2012-07-23 Noa yepez 14:21:24 14:21:24 Smoking Status Start Date Stop Date Source Social History Noa Helton Medications Ordered Filled Start Stop Current Ordering Indication Dosage Frequency Signature Comments Components Source Medication Medication Date Date Medication? Clinician (SIG) Name Name dexamethaso No Route: IV, Memoria ne (ANES) 04-22 Drug form: l 16:27: INJ, ONCE, Stop date: 04/22/19 10:27:00 [employer] REPAIRER glycopyrrol 2019-0 No Route: IV, Memoria ate (ANES) 04-22 Drug form: l 16:22: INJ, ONCE, Stop date: 04/22/19 10:22:00 ZIPPER REPAIRER ondansetron 2019-0 No Route: IV, Memoria (ANES) 04-22 Drug form: l 16:16: INJ, ONCE, Stop date: 04/22/19 10:16:00 ZIPPER REPAIRER fentaNYL 2020-0 No Route: IV, Mem oria (ANES) 04-22 Drug form: l 16:11: INJ, ONCE, Stop date: 04/22/19 10:11:00 ZIPPER REPAIRER propofol 2020-0 No Route: IV, Mem oria (ANES) 04-22 Drug form: l 16:11: INJ, ONCE, Stop date: 04/22/19 10:11:00 ZIPPER REPAIRER lidocaine 2020-0 No Route: IV, Me moria (ANES) 04-22 Drug form: l 16:11: INJ, ONCE, Stop date: 04/22/19 10:11:00 ZIPPER REPAIRER ciprofloxac 2019-0 No Route: IV, Memoria in (ANES) 04-22 Drug form: l 16:01: INJ, ONCE, Stop date: 04/22/19 10:01:00 ZIPPER REPAIRER Lactated 2019-0 No Route: IV, Mem oria Ringers 04-22 Total l Injection 15:26: Volume: Vi nn IV (ANES) 00 1,000, 1000 mL Start date: 04/22/19 9:26:00 ZIPPER REPAIRER, Stop date: 04/22/19 10:26:00 ZIPPER REPAIRER Calcium 2020-0 No 1,000 mL, Memor ia Chloride 04-22 Rate: 75 l 0.0014 13:26: ml/hr, MEQ/ML / 00 Infuse Potassium over: 13.3 Chloride hr, Route: 0.004 IV, Dosing MEQ/ML / Weight 50 Sodium kg, Total Chloride Volume: 0.103 1,000, MEQ/ML / Start Sodium date: Lactate 04/22/19 0.028 7:26:00 MEQ/ML ZIPPER REPAIRER, Injectable Duration: Solution 30 day, Stop date: 05/22/19 7:25:00 ZIPPER REPAIRER, 1.48, m2, 0 Hydralazine No Notes: Raoul isabell 1-03 (Same as: l 12:02: Apresoline Bard ) Push over 5 minutes Metoprolol No Notes: Memor ia - (Same as: l 12:02: Lopressor) Push over 2 minutes Hydromorpho No Notes: Raoul isabell ne - Same as: l 12:02: Dilaudid Bard 00 Flumazenil No Notes: Memor ia 04-22 (Same as: l 12:02: Romazicon) Naloxone No Notes: Memoria 04-22 Same as l 12:02: Narcan Danie 00 Meperidine No Notes: Memor ia 04-22 (Same as: l 12:02: Demerol) "Use Precaution in Elderly, Seizure disorders, and Renal impairment " Ondansetron No Notes: Raoul isabell - (Same as: l 12:02: Zofran) Bard MEDICATION WASTE Product Size: 4 mg Product Wasted: ___ mg Potassium 2018-04 No Notes: Memori a Chloride 2-31 Infuse at l 02:29: a rate of Danie 00 10 mEq/hr. (Same as: KCL) Sodium 2018-04 No 1,000 mL, Memori a Chloride 2-31 1000 l 0.9% 02:29: ml/hr, Bard (Bolus) IV 00 Infuse Over: 1 hr, Route: IV, 1,000, Drug form: INJ, ONCE, Priority: STAT, Dosing Weight 50 kg, Start date: 04/18/19 20:29:00 ZIPPER REPAIRER, Stop date: 04/18/19 20:29:00 ZIPPER REPAIRER, 0 potassium 2018-04 No Notes: Memori a chloride 20 2-31 (Same as: l mEq oral 02:28: K-Dur 20) Herm josh tablet, 00 "Do Not extended Crush" release Give with (KCL) food and full glass of water For patients unable to swallow tablet, dissolve in one half glass of water. Allow about 2 minutes for the tablets to disintegra te. Stir before giving to prepare slurry and administer . Please exclude Patient s with feeding tube less than 14 British (Dobhoff, J-tube etc) and pediatric and patients. Magnesium 2018-04 No Notes: Memori a Sulfate WASTE: F/P l 02:28: - Sink; E - [facility] Ciprofloxac 2018-04 Yes 500 mg = 1 Memoria in 500 MG 2-16 tab, PO, l Oral Tablet 17:21: Q12H, Vi nn [Cipro] 00 start taking on 04/19/19, X 3 day, # 6 tab, 0 Refill(s), Pharmacy: [id number] cefpodoxime 2018-04 Yes 100 mg = 1 Memoria 100 mg oral 2-16 tab, PO, l tablet 16:44: Q12H, X 7 Hi n 00 day, # 14 tab, 0 Refill(s), Pharmacy: [facility] #[id number] Thyroxine 2018-04 Yes Daily, 0 Raoul isabell 2-02 Refill(s) l 16:10: Propafenone 2018-04 Yes PO, 0 Memor ia 2-02 Refill(s) l 16:10: Xarelto 2018-04 Yes PO, 0 Memoria 2-02 Refill(s) l 16:10: Fludrocorti 2018-04 Yes 0.1 mg, Mem oria sone 2-02 PO, Daily, l 16:10: 0 Refill(s) Simvastatin 2018-04 Yes PO, 0 Memor ia 2-02 Refill(s) l 16:10: 8 HR 2018-04 Yes 1 cap, PO, Memoria Carbidopa 2-02 TID, 0 l 61.25 MG / 16:10: Refill(s) He rmann Levodopa 00 245 MG Extended Release Oral Capsule [Rytary] Colace 2018-04 Yes PO, Memoria 2-in-1 2-02 Bedtime, 0 l 16:10: Refill(s) Claritin 2018-04 Yes Daily, 0 Memor ia 2-02 Refill(s) l 16:10: gabapentin 2018-04 Yes PO, 0 Memori a 2-02 Refill(s) l 16:10: Bard 00 Amitriptyli Yes ; Start Mem oria ne HCl 25 4-05 Date: l MG Oral 05:00: 07/23/2012 Herm josh Tablet 00 ; End Date: (Active) Boniva 150 Yes ; Start Raoul isabell MG Oral 06-11 Date: l Tablet 06:00: 06/11/2012 Vi nn 00 (Active) PredniSONE Yes ; Start Raoul isabell 20 MG Oral 06-11 Date: l Tablet 06:00: 06/11/2012 Vi nn 00 (Active) LORazepam 1 Yes ; Start Mem oria MG Oral - Date: l Tablet 06:00: 06/11/2012 Vi nn 00 (Active) Crestor 10 Yes ; Start Raoul isabell MG Oral 1- Date: l Tablet 06:00: 04/29/2011 Vi nn 00 (Active) Vital Signs Vital Name Observation Time Observation Value Comments Source Temperature Oral (F) 2020-03-12 16:24:00 97.6 F [facility] Bard Height 2020-03-12 16:24:00 154.94 cm [facility] Bard Weight 2020-03-12 16:24:00 [facility] Bard BMI Calculated 2020-03-12 16:24:00 Memori al Danie Weight 2019-09-13 15:12:00 [facility] Danie Temperature Oral (F) 2019-09-13 15:03:00 97.6 F [facility] Bard Height 2019-09-13 15:03:00 154.94 cm [facility] Bard Weight 2019-09-13 15:03:00 [facility] Bard BMI Calculated 2019-09-13 15:03:00 Memori al Bard Height 2019-05-17 15:50:00 154.94 cm [facility] Danie Weight 2019-05-17 15:50:00 [facility] Bard BMI Calculated 2019-05-17 15:50:00 Memori al Bard Respitory Rate 2019-04-22 17:15:00 Memori al Bard Systolic (mm Hg) 2019-04-22 17:15:00 Raoul rial Danie Diastolic (mm Hg) 2019-04-22 17:15:00 Mem orial Bard Respitory Rate 2019-04-22 17:00:00 Memori al Danie Systolic (mm Hg) 2019-04-22 17:00:00 Raoul rial Danie Diastolic (mm Hg) 2019-04-22 17:00:00 Mem orial Bard Respitory Rate 2019-04-22 16:45:00 Memori al Bard Systolic (mm Hg) 2019-04-22 16:45:00 Raoul rial Bard Diastolic (mm Hg) 2019-04-22 16:45:00 Mem orial Bard Systolic (mm Hg) 2019-04-19 05:01:00 Raoul rial Danie Diastolic (mm Hg) 2019-04-19 05:01:00 Mem orial Danie Systolic (mm Hg) 2019-04-19 04:11:00 Raoul rial Bard Diastolic (mm Hg) 2019-04-19 04:11:00 Mem orial Bard Systolic (mm Hg) 2019-04-19 03:20:00 Raoul rial Danie Diastolic (mm Hg) 2019-04-19 03:20:00 Mem orial Bard Respitory Rate 2019-04-19 03:20:00 Memori al Danie Heart Rate 2019-04-19 00:20:00 [facility] Bard Respitory Rate 2019-04-19 00:20:00 Memori al Danie Temperature Oral (F) 2019-04-19 00:20:00 97.7 F [facility] Bard Height 2019-04-19 00:20:00 154.94 cm [facility] Bard BMI Calculated 2019-04-19 00:20:00 Memori al Bard Weight 2019-04-19 00:20:00 [facility] Danie Temperature Oral (F) 2019-04-18 21:56:00 98.2 F [facility] Danie Heart Rate 2019-04-18 21:56:00 [facility] Bard Height 2019-04-18 21:35:00 157.48 cm [facility] Danie Weight 2019-04-18 21:35:00 [facility] Bard BMI Calculated 2019-04-18 21:35:00 Memori al Danie Height 2019-04-04 15:55:00 154.94 cm [facility] Danie Weight 2019-04-04 15:55:00 [facility] Bard BMI Calculated 2019-04-04 15:55:00 Memori al Danie Height 2019-03-21 15:59:00 157.48 cm [facility] Bard Weight 2019-03-21 15:59:00 [facility] Danie BMI Calculated 2019-03-21 15:59:00 Manuel Lozano Procedures Procedure Date / Time Performing Clinician Source Performed Measurement of post-voiding 2019-09-08 14:40:00 Noa Helton residual urine and/or bladder capacity by ultrasound, non-imaging Complex uroflowmetry (eg, 2019-09-08 14:40:00 Nj anthony Helton calibrated electronic equipment) Electromyography studies 2019-04-04 16:44:00 [facility] oriezequiel Helton (EMG) of anal or urethral sphincter, other than needle, any technique Voiding pressure studies, 2019-04-04 16:44:00 Nj moriezequiel Cottoann intra-abdominal (ie, rectal, gastric, intraperitoneal) (List separately in addition to code for primary procedure) Complex cystometrogram (ie, 2019-04-04 16:44:00 Noa Helton calibrated electronic equipment); with voiding pressure studies (ie, bladder voiding pressure), any technique Abdominal [facility] Danie hysterectomy<sup>1, 2</sup> Appendectomy<sup>3</sup> Memoria l Bard Carpal tunnel [facility] Bard release<sup>4</sup> Hip replacement<sup>6</sup> Raoul rial Danie Hysterectomy [facility] Bard Laminectomy<sup>7</sup> [facility] Bard Lumbar spinal [facility] Bard fusion<sup>8</sup> Ovarian [facility] Danie cystectomy<sup>9</sup> Release of trigger [facility] Herm josh thumb<sup>10</sup> Tonsillectomy<sup>11</sup> [facility] Plan of Care Planned Activity Planned Date Details Comments Source Future Scheduled Test 2012-06-11 16:38:04 Plan of Care [code [facility] Danie = 11876-9] Encounters Start End Encounter Admission Attending Care Care Encounter Source Date/Time Date/Time Type Type Clinicians Facility Department ID 2020-03-13 2020-03-13 Telephone ORLIN Campbell [id number] 00:00:00 00:00:00 [facility] [id number] [place] [id number] Professio [id number] nal [address] 2020-03-13 2020-03-13 Refill ORLIN Campbell [id number] 00:00:00 00:00:00 [facility] [id number] [place] [id number] Professio [phone] nal 0[address] 2020-03-12 2020-03-12 Outpatient Kitty, MHMG MH[facility] [id number] 10:30:00 23:59:59 Nitesh [address] [place] 2020-03-07 2020-03-[address] [place] [facility] [id number] 00:00:00 00:00:00 [facility] [id number] [place] [id number] Professio [id number] nal 044 [address] 2020-03-06 2020-03-06 Orders Doctor FARHAD [id number] 00:00:00 00:00:00 Only Unassigned, WENCESLAO [id number] [place] [facility] [id number] [id number] 2020-02-20 2020-02-20 Office Louie, [facility] [id number] 13:01:01 14:28:36 Visit Haley [facility] [id number] [facility] [id number] [id number] 2019-09-13 2019-09-13 Outpatient Kitty, MHMG MHMG [id number] 10:15:00 23:59:59 Nitesh [address] 2019-09-08 2019-09-08 Outpatient VISIT, MHMG MHMG [id number] 09:00:00 23:59:[address] MED_AS[address] [facility] 2019-05-17 2019-05-17 Outpatient Kitty, MHMG MHMG [id number] 10:00:00 23:59:59 Nitesh Tran [place] 2019-04-22 2019-04-22 Outpatient Tang, MHPL MHPL [id number] 07:11:00 11:45:00 Nitesh 05 [place] 2019-04-22 2019-04-22 Outpatient MHBL URO [id number] MHBL 07:11:00 07:11:00 2019-04-18 2019-04-18 Outpatient Folorunsho, MHPL MHPL [id number] 18:13:59 23:03:00 Tamiko Ayers 2019-04-18 2019-04-18 Emergency E MHBL MHBL [id number] MHBL 18:13:00 18:13:00 2019-04-11 2019-04-11 Outpatient VISIT, MHMG MHMG [id number] 11:30:00 23:59:[address] [facility] [facility] 2019-04-04 2019-04-04 Outpatient NUBIA TangMG MHMG [id number] 10:00:00 23:59:59 Nitesh [address] [place] 2019-03-30 2019-03-30 Outpatient NUBIA TangMG MHMG [id number] 15:15:00 15:15:00 Nitesh [address] [place] 2019-03-25 2019-03-25 Outpatient NUBIA TangMG MHMG [id number] 15:15:00 23:59:59 Nitesh [address] [place] 2019-03-23 2019-03-23 Outpatient Kitty MHOIP MHOIP [id number] 13:25:00 23:59:00 Nitesh 00 [place] 2019-03-21 2019-03-21 Outpatient NUBIA TangMG MHMG [id number] 10:15:00 23:59:59 Nitesh [address] [place] 2016-12-30 2016-12-30 Outpatient Anabell Mcnamara [facility] [id number] 10:17:00 23:59:00 2012-07-23 2012-07-23 Outpatient MHIE MHIE [id number] 09:21:42 09:21:24 2012-06-21 2012-06-21 Outpatient MHIE MHIE [id number] 16:51:12 16:50:54 2012-06-11 2012-06-11 Outpatient MHIE MHIE [id number] 10:38:22 10:38:04 2012-06-06 2012-06-06 Outpatient MHIE MHIE [id number] 21:15:36 21:15:19 2012-06-01 2012-06-01 Outpatient MHIE MHIE [id number] 18:18:06 18:17:50 2012-05-07 2012-05-07 Outpatient MHIE MHIE [id number] 17:30:38 17:30:37 2012-04-26 2012-04-26 Outpatient [facility] [id number] 15:04:34 15:04:17 Results Test Description Test Time Test Comments Results Result Comments Source URINE AND STOOL 2019-05-17 Yellow [facility] 16:10:00 *NA*(05/17/19 Danie 10:10 AM) URINE AND STOOL 2019-05-17 Clear [facility] 16:10:00 *NA*(05/17/19 Bard 10:10 AM) URINE AND STOOL 2019-05-17 16:10:00 Test Item Value Reference Range Interpretation Comme nts POC UA SG (test code = POC UA SG) 1.015 1 [facility] [id number] 16:10:00 Test Item Value Reference Range Interpretation Comments POC UA pH (test code = POC UA pH) 7.0 1 5.0-8.0 [facility] [id number] 16:10:00Negative *NA*(05/17/19 10:10 AM)[facility] [id number] 16:10:00Trace *ABN*(05/17/19 10:10 AM)[facility] [id number] 16:10:000.2[facility] [id number] 16:10:00Negative *NA*(05/17/19 10:10 AM)[facility] [id number] 16:10:00Negative *NA*(05/17/19 10:10 AM)[facility] Danie RTTZHFSXAPIQ0944-78-91 13:33:003.9[facility]ann[facility] [id number] 00:34:00 80[facility]ann[facility] [id number] 00:34:0013[facility]ann[facility] PANEL 2019-04-19 00:34:000.79[facility]ann[facility] [id number] 00:34:65940Zughpeyj HermannCHEM MUVUV8726-70-53 00:34:002.9[facility]ann[facility] [id number] 00:34:77773Hdswjcap HermannCHEM [id number] 00:34:0034[facility]ann[facility] [id number] 00:34:007.9[facility]ann[facility] WLHCE2810-02-54 00:34:009.1 [facility] [id number] 00:34:0072[facility]ann[facility] PANEL 2019-04-18 21:47:0092[facility]ann[facility] [id number] 21:47:0013[facility]ann[facility] [id number] 21:47:000.85[facility]ann[facility] LQLJM4961-25-19 21:47:24587Jgrpcnpm HermannCHEM VWBLF0712-05-03 21:47:002.7[facility]ann[facility] [id number] 21:47:95404Jsupnkce HermannCHEM [id number] 21:47:0033 [facility] [id number] 21:47:007.7[facility]ann[facility] PANEL 2019-04-18 21:47:009.0[facility]ann[facility] [id number] 21:47:0067[facility] DxyqnjxIEPEHTHRGL1356-30-00 21:47:004.3[facility]orial OopcyyvDKMLGALFDZ2043-82-51 21:47:004.12[facility]orial LjjobxdMSTDVDSWNF4007-18-18 21:47:0013.2[facility] Danie SGQYPLPEUB2631-29-52 21:47:0040.1[facility]orial EkebimxYYTNVBHHAJ9036-37-03 21:47:00 97.3Memorial TbvspqiVLZPVBNYEJ9837-26-20 21:47:00 Test Item Value Reference Range Interpretation Comments MCH (test code = MCH) 32.1 pg 27.0-31.0 [facility] WedrsstLLQYISUXYR2425-10-08 21:47:0033.0[facility] HermannHEMATOLOGY 2019-04-18 21:47:0013.6[facility] KsvgrxjVKKAEZURML3779-32-86 21:47:48704Nlaoptlm UpcwmavZGEGDZBPBC3545-19-56 21:47:008.4[facility]orial HnwxgydCTCBJCFUYJ6201-45-04 21:47:00 Test Item Value Reference Range Interpretation Comments INR (test code = INR) 1.10 1 0.85-1.17 Memorial ZspswcfHPGWDWSUVJ7307-30-86 21:47:00 Test Item Value Reference Range Interpretation Comments PT (test code = PT) 14.2 s 12.0-14.7 Memorial XdcciblCDKHNLSPUH1514-31-01 21:47:00 Test Item Value Reference Range Interpretation Comments PTT (test code = PTT) 40.7 s 22.9-35.8 Memorial VdlxklwIVEYIJOQKZ6374-17-48 21:47:0057.3[facility] HermannHEMATOLOGY 2019-04-18 21:47:0027.2[facility] EhmquyhMTABGLOTKT0012-50-36 21:47:0013.4[facility] EboabgwRMDKCDEFND4199-67-26 21:47:001.4[facility]orial YatyxejDKCVFQNRYB5208-63-10 21:47:000.7[facility]orial XzxbidlRRYYCFXLBZ3715-52-77 21:47:002.5[facility] SEAOLAJSFQ0570-86-29 21:47:001.2[facility] QalpgqrQWMHGMKOMZ9963-36-22 21:47:000.6 Memorial XgjtxthPSOSGNQXBF7902-55-80 21:47:000.1[facility] 2019-04-18 21:47:00Clear (04/18/19 3:47 PM)[facility] 2019-04-18 21:47:00 Test Item Value Reference Range Interpretation Comments UA Spec Grav (test code = UA Spec 1.002 1 Grav) [facility] [id number] 21:47:00 Test Item Value Reference Range Interpretation Comments UA pH (test code = UA pH) 7.0 1 5.0-8.0 [facility] [id number] 21:47:00Negative *NA*(04/18/19 3:47 PM)[facility] [id number] 21:47:00Small *ABN*(04/18/19 3:47 PM)[facility] [id number] 21:47:00Negative (04/18/19 3:47 PM) [facility] [id number] 21:47:00Negative (04/18/19 3:47 PM) [facility] [id number] 21:47:001[facility] [id number] 21:47:001[facility] [id number] 16:44:00 Yellow *NA*(04/04/19 10:44 AM)[facility] [id number] 16:44:00 Clear *NA*(04/04/19 10:44 AM)[facility] [id number] 16:44:00 >=1.030 *ABN*(04/04/19 10:44 AM)[facility] [id number] 16:44:00 Test Item Value Reference Range Interpretation Comments POC UA pH (test code = POC UA pH) 7.0 1 5.0-8.0 [facility] [id number] 16:44:00Negative *NA*(04/04/19 10:44 AM)[facility] [id number] 16:44:00Trace *ABN*(04/04/19 10:44 AM)[facility] [id number] 16:44:000.2[facility] [id number] 16:44:00Positive *ABN*(04/04/19 10:44 AM)[facility] URINE AND [id number] 16:44:00Moderate *ABN*(04/04/19 10:44 AM)[facility] [id number] 16:41:00Yellow *NA*(03/21/19 10:41 AM)[facility] [id number] 16:41:00Clear *NA*(03/21/19 10:41 AM)[facility] [id number] 16:41:00 Test Item Value Reference Range Interpretation Comments POC UA SG (test code = POC UA SG) 1.010 1 [facility] [id number] 16:41:00 Test Item Value Reference Range Interpretation Comments POC UA pH (test code = POC UA pH) 7.0 1 5.0-8.0 [facility] HermannURINE AND [id number] 16:41:00Negative *NA*(03/21/19 10:41 AM)[facility] [id number] 16:41:00Trace *NA*(03/21/19 10:41 AM)[facility] [id number] 16:41:000.2[facility] [id number] 16:41:00Negative *NA*(03/21/19 10:41 AM)[facility]annURINE AND [id number] 16:41:00Small *ABN*(03/21/19 10:41 AM)[facility]
--- OUTSIDE RECORDS SUMMARY | 2020-03-21 07:49 | XMS REPORT | Summary of Care ---
:1940 Author Organization [facility] - [facility] Address [address] [place] [address] Care Team Providers Name Role Phone Breanne Campbell MD Primary Care Provider Reason for Visit Reason Comments LAB WORK Auth/Cert Status Reason Specialty Diagnoses / Referred By Referred To Procedures Contact Contact Clinical Medical Diagnoses Pre-op testing Ad[facility] Lab Laboratory Procedures COVID-19 (ID NOW RAPID TESTING) [address] [place] [address] Encounter Details Date Type Department Care Team Description 12/27/2019 Laboratory Only [facility] Keron Potter MD [address] [place] [address] [address] [place] [address] Pre-operative Phlebotomy Only, Adc Test clearance (Primary [facility]) [address] [place] [address] Allergies Active Allergy Reactions Severity Noted Date Comments Codeine Nausea and/or Vomiting 01/13/2018 Pentazocine Lactate Hives 01/13/2018 Rapid he art rate, itching Tramadol Dizziness, 01/13/2018 Hallucinations, Itching Acetaminophen Hypertension 01/13/2018 Hives, itching Tramadol Hcl Dizziness, 01/13/2018 Hallucinations, Itching Hydrocodone-Acetaminophe Hives, Itching, 01/13/2018 n Hypertension documented as of this encounter (statuses as of 12/27/2019) Medications Medication Sig Dispensed Refills Start Date End Date Status propafenone 150 mg tablet Take 150 mg by 0 Active mouth 3 (three) times daily. XARELTO 20 mg tablet TAKE 1 TABLET 3 10/26/2017 Active BY MOUTH EVERY DAY WITH EVENING MEAL docusate sodium (COLACE Take by mouth 0 Active ORAL) 2 (two) times daily. loratadine (CLARITIN) 10 Take 10 mg by 0 Active mg tablet mouth daily. conjugated estrogens 0.625 Insert 1 g 30 g 5 07/15/2018 Active mg/gram vaginal into vagina creamIndications: SEE-INSTRUCTIO Postmenopausal atrophic NS. Use small vaginitis amount twice a week vaginally cyanocobalamin, vitamin Take by 0 Active B-12, (VITAMIN B12 ORAL) mouth. levothyroxine 50 mcg Take 1 tablet 90 tablet 3 07/25/2019 Active tabletIndications: Primary by mouth every hypothyroidism morning. carbidopa-levodopa Take 1 capsule 90 capsule 0 08/17/2019 Active (RYTARY) 61.25-245 mg CpSR by mouth 3 (three) times daily. simvastatin 10 mg Take 1 tablet 90 tablet 3 10/20/2019 Active tabletIndications: Annual by mouth at physical exam, bedtime. Hypercholesterolemia Nebulizer & Compressor For Use as 1 Each 0 11/03/2019 Active Neb DeviIndications: directed Bronchiectasis without complication albuterol 2.5 mg /3 mL Inhale 3 mL 2 60 Vial 11 11/03/2019 Active (0.083 %) nebulizer (two) times solutionIndications: daily. Bronchiectasis without complication sodium chloride Inhale 1 Vial 60 Vial 11 11/03/2019 Active (HYPER-RYAN) 3.5 % 2 (two) times NebuIndications: daily. Bronchiectasis without complication documented as of this encounter (statuses as of 12/27/2019) Active Problems Problem Noted Date Bronchiectasis without complication 12/09/2019 Overview: Added automatically from request for aruna angela [id number] Abnormal CT scan of lung 11/02/2019 Granulomatous [...] as of this encounter (statuses as of 12/27/2019) Resolved Problems Problem Noted Date Resolved Date Interstitial cystitis 10/20/2019 documented as of this encounter (statuses as of 12/27/2019) Immunizations Name Administration Dates Next Due Influenza [...] Treatment Date Type Specialty Care Team Description 12/28/2019 Appointment Radiology Cori Bates DO [address] [place] [phone] 12/28/2019 Hospital Encounter Ambulatory Surgical Dulce Bates DO Abnormal CT scan of [address] [place] [phone] 12/28/2019 Anesthesia Event Surgery Jose Miguel Mcnally M D [address] [place] [phone] 12/28/2019 Surgery Surgery Cori Bates DO ELECTROMAGNETIC [address] [place] [phone] 02/06/2020 Office Visit Endocrinology Claudia Scott & MD Kya Metabolism [address] [place] [address] 02/09/2020 Office Visit Pulmonary Disease Cori Bates DO [address] [place] [phone] Name Type Priority Associated Diagnoses Date/Ti me COVID-19 (ID NOW RAPID LAB Routine Pre-operative carlos michel 12/27/2019 1:49 PM CDT TESTING) Name Type Priority Associated Diagnoses Order S alonso COVID-19 (ID NOW RAPID LAB Routine Pre-operative carlos michel Expected: 12/27/2019, TESTING) Expires: 2020 Health Maintenance Due Date Last Done Comments DTaP,Tdap,and Td Vaccines (1 - Tdap) 1961 Zoster Recombinant Vaccine (SHINGRIX) (1 of 2) 1992 Medicare Wellness Visit 2007 Osteoporosis Screening 2007 PNEUMOCOCCAL VACCINES 65+ (1 of 1 - PPSV23) 2007 INFLUENZA VACCINE (#1) 2019 02/03/2018 Depression Screening 11/02/2020 11/03/2019 documented as of this encounter Results Not on filedocumented in this encounter Visit Diagnoses Diagnosis Abnormal CT scan of lung Other nonspecific abnormal finding of bartolo ng field Bronchiectasis without complication Bronchiectasis without acute exacerbatio n Pre-operative clearance - Primary Preoperative examination, unspecified Bronchiectasis without complication Bronchiectasis without acute exacerbatio n Abnormal CT scan of lung Other nonspecific abnormal finding of bartolo ng field documented in this encounter Additional Health Concerns Infection Onset Date Last Indicated Resolved Time COVID-19 Rule Out 12/27/2019 12/27/2019 documented as of this encounter Insurance Payer Benefit Plan Subscriber ID Effective Dates Phone Address Type / Group BCBS [facility] [id number] 2012-Madeline [phone] [address] PPO/POS [place] - OUT OF t 87 [id number] [place] [address] documented as of this encounter
--- OUTSIDE RECORDS SUMMARY | 2020-03-21 07:49 | XMS REPORT | Summary of Care ---
:1940 Author Organization [facility] [place] - [facility] Address [address] [place] [address] Care Team Providers Name Role Phone Breanne Campbell MD Primary Care Provider Reason for Referral MRI/CAT Scan (Routine) Status Reason Specialty Diagnoses / Referred By Referred To Procedures Contact Contact Closed Diagnostic Diagnoses Bronchiectasis without complication Abnormal CT scan of lung Cori Bates DO Radiology Procedures CT VERAN THORAX WO CONTRAST [address] [place] [address] Reason for Visit Auth/Cert Status Reason Specialty Diagnoses / Referred By Referred To Procedures Contact Contact Ambulatory Surgical Diagnoses Bronchiectasis without complication [J47.9] Abnormal CT scan of lung [R91.8] [facility] Procedures NE BRONCHOSCOPY W/CPTR-ASST IMAGE-GUIDED NAVIGATION [facility] HELP ELECTROMAGNETIC NAVIGATION ENDOBRONCHIAL ULTRASOUND-TRANSBRONCHIAL FNA [address] [place] [address] Encounter Details Date Type Department Care Team Description 12/28/2019 Hospital Encounter [facility] Computed Milena Bates DO Arrived Tomography - Jessica [address] [phone] Allergies Active Allergy Reactions Severity Noted Date Comments Codeine Nausea and/or Vomiting 01/13/2018 Pentazocine Lactate Hives 01/13/2018 Rapid he art rate, itching Tramadol Dizziness, 01/13/2018 Hallucinations, Itching Acetaminophen Hypertension 01/13/2018 Hives, itching Tramadol Hcl Dizziness, 01/13/2018 Hallucinations, Itching Hydrocodone-Acetaminophe Hives, Itching, 01/13/2018 n Hypertension documented as of this encounter (statuses as of 12/29/2019) Medications No known medicationsdocumented as of this encounter (statuses as of 12/29/2019) Active Problems Problem Noted Date Bronchiectasis without complication 12/09/2019 Overview: Added automatically from request for aruna angela [id number] Abnormal CT scan of lung 11/02/2019 Granulomatous [...] as of this encounter (statuses as of 12/29/2019) Resolved Problems Problem Noted Date Resolved Date Interstitial cystitis 10/20/2019 documented as of this encounter (statuses as of 12/29/2019) Immunizations Name Administration Dates Next Due Influenza [...] Description 02/06/2020 Office Visit Endocrinology Diabetes & KesiKya pemberton MD Metabolism [address] [place] [address] 02/09/2020 Office Visit Pulmonary Disease Cori Bates, [address] [place] [address] [phone] Health Maintenance Due Date Last Done Comments DTaP,Tdap,and Td Vaccines (1 - Tdap) 1961 Zoster Recombinant Vaccine (SHINGRIX) (1 of 2) 1992 Medicare Wellness Visit 2007 Osteoporosis Screening 2007 PNEUMOCOCCAL VACCINES 65+ (1 of 1 - PPSV23) 2007 INFLUENZA VACCINE (#1) 2019 02/03/2018 Depression Screening 12/27/2020 12/28/2019 documented as of this encounter Procedures Procedure Name Priority Date/Time Associated Diagnosis Comme nts CT VERAN THORAX WO Routine 12/28/2019 8:51 Bronchiectasis wit hout Results for this CONTRAST AM CDT complication procedure are in Abnormal CT scan of the resu lts lung section. documented in this encounter Results CT VERAN THORAX WO CONTRAST (12/28/2019 8:51 AM CDT) Specimen Impressions Performed At PACS/VR/DOSE Scattered multifocal tree-in-bud nodularity peribronch ial thickening, with mild worsening in comparison to the prior exam and int erval development of right lower lobe medial segment peribronchial consolid ative opacity. Mild bronchiectatic changes, most pronounced about the righ t lower lobe. Mosaic attenuation of expiratory phase is seen suggestive of air trapping and small airway disease. Preliminary Report Dictated by Resident: Subhash Arora MD., have reviewed this study and agree with the above report. Narrative Performed At PROCEDURE: CT CHEST NON CONTRAST - VERAN PROTOCOL PACS/VR/DOSE CLINICAL INDICATION: Cough, persistent L rhona nodule, >=1cm COMPARISON: None. TECHNIQ10/25/2019, CT chest without contrast 06/29/2018.U E: Supine inspiratory and expiratory CT of the lungs performed , without intravenous contrast. Coronal and sagittal MPRs and axial MIPs were generate d and reviewed. (DFOV = 31.3 cm) FINDINGS: Lower neck/thyroid: Unremarkable. Lungs: Scattered multifocal peripheral areas of tree i n bud nodularity and peribronchial thickening/consolidative o pacities are noted, mildly progressed in comparison to the prior ex am, for for example; slight worsening in the right upper lobe assistant food service director ior segment (2:134). Interval development of peribronchial consolidative opacity wit h reticular nodular thickening in the medial segment of the right lower lobe (2:345). Mosaic attenuation of the lung parenchyma on th e expiratory phase suggestive of air trapping. Interval partial calcifica tion of few pulmonary nodules is noted, for example a 4 mm left upper lob e nodule (2:255). Central airway: Mild bronchiectatic stock[place] ges, pronounced over the lower lobes, especially on the right. Pleura: No pleural effusion, thickening or pneumothorax. Thoracic aorta and great vessels: Normal in diameter . Mild atherosclerotic calcification of the aorta. Pulmonary arteries: Unremarkable. Heart and pericardium: No detectable coronary arterial calcification. Trace dependent pericardial effusion. Lymph nodes: No enlarged thoracic lymph nodes. Mediastinum: Unremarkable. Thoracic spine and chest wall: Unremarkable, with norm al thoracic vertebral body heights. Other Lines/Tubes/Devices/Hardware: None Visualized upper abdomen: Unremarkable. Procedure Note [facility], Radiant Results Inft User - 2019 1:44 PM CDT PROCEDURE: CT CHEST NON CONTRAST - VERAN PROTOCOL CLINICAL INDICATION: Cough, persistent L rhona nodule, >=1cm COMPARISON: None. TECHNIQ10/25/2019, CT chest without contra st 06/29/2018.UE: Supine inspiratory and expiratory CT of the lungs performed , without intravenous contrast. Coronal and sagittal MPRs and axial MIPs were generated and reviewed. (DFOV = 31.3 cm) FINDINGS: Lower neck/thyroid: Unremarkable. Lungs: Scattered multifocal peripheral a reas of tree in bud nodularity and peribronchial thickening/consolidative o pacities are noted, mildly progressed in comparison to the prior ex am, for for example; slight worsening in the right upper lobe assistant food service director ior segment (2:134). Interval development of peribronchial consolidati ve opacity with reticular nodular thickening in the medial segment of the right lower lobe (2:345). Mosaic attenuation of the lung parenchyma on th e expiratory phase suggestive of air trapping. Interval partial calcifica tion of few pulmonary nodules is noted, for example a 4 mm left upper lob e nodule (2:255). Central airway: Mild bronchiectatic [place] ges, pronounced over the lower lobes, especially on the right. Pleura: No pleural effusion, thickening or pneumothorax. Thoracic aorta and great vessels: Vida l in diameter. Mild atherosclerotic calcification of the aorta. Pulmonary arteries: Unremarkable. Heart and pericardium: No detectable cor onary arterial calcification. Trace dependent pericardial effusion. Lymph nodes: No enlarged thoracic lymph nodes. Mediastinum: Unremarkable. Thoracic spine and chest wall: Unremarka ble, with normal thoracic vertebral body heights. Other Lines/Tubes/Devices/Hardware: None Visualized upper abdomen: Unremarkable. IMPRESSION Scattered multifocal tree-in-bud nodular ity peribronchial thickening, with mild worsening in comparison to the prio r exam and interval development of right lower lobe medial segment peribron chial consolidative opacity. Mild bronchiectatic changes, most pronounced about the right lower lobe. Mosaic attenuation of expiratory phase is seen suggestive of air trapping and small airway disease. Preliminary Report Dictated by Resident: Guicho Patel I, Subhash Rand MD., have r eviewed this study and agree with the above report. Performing Organization Address City/State/Zipcode Phone Number PACS/VR/DOSE documented in this encounter Visit Diagnoses Diagnosis Bronchiectasis without complication Bronchiectasis without acute exacerbatio n Abnormal CT scan of lung Other nonspecific abnormal finding of bartolo ng field documented in this encounter Insurance Payer Benefit Plan Subscriber ID Effective Dates Phone Address Type / Group [facility] [id number] 2012-Madeline [phone] [address] PPO/POS [place] - OUT OF t 87 [id number] [place] [address] documented as of this encounter
--- OUTSIDE RECORDS SUMMARY | 2020-03-21 07:49 | XMS REPORT | Summary of Care ---
:1940 Author Organization [facility] - Health Address [address] [place] [address] Care Team Providers Name Role Phone Breanne Campbell MD Primary Care Provider Encounter Details Date Type Department Care Team Description 12/27/2019 Orders Only [facility] Doctor Unassigned, No [address] [facility] Name [place] [phone] [facility] [place] [phone] Allergies Active Allergy Reactions Severity Noted Date [...] Overview: Added automatically from request for aruna julio césar [id number] Abnormal CT scan of lung 11/02/2019 Granulomatous [...] Treatment Date Type Specialty Care Team Description 12/27/2019 Laboratory Only Clinical Medical Keron Potter MD [address] [facility] [address] [place], [place] [phone] Laboratory Only, Adc Test 12/28/2019 Appointment Radiology Cori Bates DO [address] [place] [phone] 12/28/2019 Hospital Encounter Ambulatory Surgical Dulce Bates DO Abnormal CT scan of [address] [place] [phone] 12/28/2019 Anesthesia Event Surgery Jose Miguel Mcnally M D [address] [place] [phone] 12/28/2019 Surgery Surgery Cori Bates DO ELECTROMAGNETIC [address] [place] [phone] 02/06/2020 Office Visit Endocrinology Claudia Scott & MD Kya Metabolism [address] [place] [address] [phone] 02/09/2020 Office Visit Pulmonary Disease Cori Bates DO [address] [place] [phone] Health Maintenance Due Date Last Done Comments DTaP,Tdap,and Td Vaccines (1 - Tdap) 1961 Zoster Recombinant Vaccine (SHINGRIX) (1 of 2) 1992 Medicare Wellness Visit 2007 Osteoporosis Screening 2007 PNEUMOCOCCAL VACCINES 65+ (1 of 1 - PPSV23) 2007 INFLUENZA VACCINE (#1) 2019 02/03/2018 Depression Screening 11/02/2020 11/03/2019 documented as of this encounter Procedures Procedure Name Priority Date/Time Associated Diagnosis Comme nts CONSENT/REFUSAL FOR Routine 12/27/2019 1:40 PM DIAGNOSIS AND TREATMENT CDT ASSIGNMENT OF BENEFITS Routine 12/27/2019 1:40 PM CDT documented in this encounter Results Not on filedocumented in this encounter Insurance Payer Benefit Plan Subscriber ID Effective Dates Phone Address Type / Group [employer] [place] [id number] 2012-Madeline [phone] [address] PPO/POS [place] - OUT OF t 87 [id number] [place] [address] documented as of this encounter
--- OUTSIDE RECORDS SUMMARY | 2020-03-21 07:50 | XMS REPORT | Summary of Care ---
:1940 Author Organization [facility] Address [address] [place] [address] Care Team Providers Name Role Phone Breanne Campbell MD Primary Care Provider Reason for Visit Reason Comments Results s/p EBUS Encounter Details Date Type Department Care Team Description 01/09/2020 Telephone [facility] ADC Cori Bates DO Results (s/p EBUS) Pulmonary Clinic [address] , [address] [place] [phone] Allergies Active Allergy Reactions Severity Noted Date Comments Codeine Nausea and/or Vomiting 01/13/2018 Pentazocine Lactate Hives 01/13/2018 Rapid he art rate, itching Tramadol Dizziness, 01/13/2018 Hallucinations, Itching Acetaminophen Hypertension 01/13/2018 Hives, itching Tramadol Hcl Dizziness, 01/13/2018 Hallucinations, Itching Hydrocodone-Acetaminophe Hives, Itching, 01/13/2018 n Hypertension documented as of this encounter (statuses as of 01/09/2020) Medications No known medicationsdocumented as of this encounter (statuses as of 01/09/2020) Active Problems Problem Noted Date Bronchiectasis without complication 12/09/2019 Overview: Added automatically from request for aruna angela [id number] Abnormal CT scan of lung 11/02/2019 Granulomatous [...] as of this encounter (statuses as of 01/09/2020) Resolved Problems Problem Noted Date Resolved Date Interstitial cystitis 10/20/2019 documented as of this encounter (statuses as of 01/09/2020) Immunizations Name Administration Dates Next Due Influenza [...] Signs Not on filedocumented in this encounter Miscellaneous Notes Telephone Encounter - Christine Mata RN - 01/09/2020 9:01 AM CDTRE: EBUS results dated 12/28/2019. [facility] Cori Bates: "Please let patient know biopsies showed no evidence of cancer. Did show evidence of a chronic infection. We will wait for results of cultures done at the time of the bronchoscopy to see what type of infection is present. Of note, cultures can take up to 6 weeks to finalize. " Patient notified of above. No complaints. Verbalized understanding and will have f/u Pulm clinic visit at [facility] on 02/09/2020. documented in this encounter Plan of Treatment Date Type Specialty Care Team Description 02/06/2020 Office Visit Endocrinology Diabetes & Kesired Kya vogel MD Metabolism [address] [place] [address] 02/09/2020 Office Visit Pulmonary Disease Cori Bates, [address] [place] [address] [phone] Health Maintenance Due Date Last Done Comments DTaP,Tdap,and Td Vaccines (1 - Tdap) 1961 Zoster Recombinant Vaccine (SHINGRIX) (1 of 2) 1992 Medicare Wellness Visit 2007 Osteoporosis Screening 2007 PNEUMOCOCCAL VACCINES 65+ (1 of 1 - PPSV23) 2007 INFLUENZA VACCINE (#1) 2019 02/03/2018 Depression Screening 12/27/2020 12/28/2019 documented as of this encounter Results Not on filedocumented in this encounter Insurance Payer Benefit Plan Subscriber ID Effective Dates Phone Address Type / Group BCBS [facility] [id number] 2012-Madeline [phone] [address] PPO/POS [place] - OUT OF t 87 [id number] [place] [address] documented as of this encounter
--- OUTSIDE RECORDS SUMMARY | 2020-03-21 07:50 | XMS REPORT | Summary of Care ---
:1940 Author Organization [facility] - [facility] Address [address] [place] [address] Care Team Providers Name Role Phone Breanne Campbell MD Primary Care Provider Reason for Visit Reason Comments Follow-up HYPOTHYROIDISM Encounter Details Date Type Department Care Team Description 02/06/2020 Office Visit [facility] Kya Scott, Primary hy pothyroidism (Primary Dx); Endocrinology- MD Blood pressure elevated without history of HTN [address], [address] [place] [phone] Allergies Active Allergy Reactions Severity Noted Date Comments Codeine Nausea and/or Vomiting 01/13/2018 Pentazocine Lactate Hives 01/13/2018 Rapid he art rate, itching Tramadol Dizziness, 01/13/2018 Hallucinations, Itching Acetaminophen Hypertension 01/13/2018 Hives, itching Tramadol Hcl Dizziness, 01/13/2018 Hallucinations, Itching Hydrocodone-Acetaminophe Hives, Itching, 01/13/2018 n Hypertension documented as of this encounter (statuses as of 02/06/2020) Medications Medication Sig Dispensed Refills Start Date End Date Status levothyroxine 50 mcg Take 50 mcg by 0 01/15/2020 Active tablet mouth every morning. propafenone 150 mg Take 150 mg by 0 12/09/2019 Active tablet mouth every 8 (eight) hours. XARELTO 20 mg tablet 0 02/01/2020 Active simvastatin 10 mg Take 10 mg by 0 01/23/2020 Active tablet mouth at bedtime. RYTARY 61.25-245 mg Take 1 capsule by 0 12/09/2019 Active CpSR mouth 3 (three) times daily. albuterol 2.5 mg /3 mL USE IN NEBULIZER 1 0 12/19/19 20 Active (0.083 %) nebulizer VIAL TWICE A DAY solution documented as of this encounter (statuses as of 02/06/2020) Active Problems Problem Noted Date Bronchiectasis without complication 12/09/2019 Overview: Added automatically from request for aruna angela [id number] Abnormal CT scan of lung 11/02/2019 Granulomatous [...] as of this encounter (statuses as of 02/06/2020) Resolved Problems Problem Noted Date Resolved Date Interstitial cystitis 10/20/2019 documented as of this encounter (statuses as of 02/06/2020) Immunizations Name Administration Dates Next Due Influenza Virus Vaccine 02/03/2018 documented as of this encounter Social History Tobacco Use Types Packs/Day Years Used Date Never Smoker Smokeless Tobacco: Never Used Alcohol Use Drinks/Week oz/Week Comments No Sex Assigned at Date Recorded Not on file COVID-19 Exposure Response Date Recorded In the last month, have you been in contact with No / Unsure 02/06/2020 8:21 AM CDT someone who was confirmed or suspected to have Coronavirus / COVID-19? documented as of this encounter Last Filed Vital Signs Vital Sign Reading Time Taken Comments Blood Pressure 153/72 02/06/2020 8:34 AM CDT Pulse 66 02/06/2020 8:28 AM CDT Temperature - - Respiratory Rate - - Oxygen Saturation - - Inhaled Oxygen Concentration - - Weight 48.5 kg (107 lb) 02/06/2020 8:28 AM CDT Height 157.5 cm (5' 2") 02/06/2020 8:28 AM CDT Body Mass Index 19.57 02/06/2020 8:28 AM CDT documented in this encounter Progress Notes Kya Scott MD - 02/06/2020 8:30 AM CDT chief complaint: Primary hypothyroidism- follow up HPI: Natty Armenta is a 79 year old /White female evaluated for thyroid f/u SUSI 07/2018. We had televisit in 07/2019. No major medical issues in interim. She had bronchoscopy forpulmonary nodules in interim. BP issues-- has fluctuating hypotension and hypertension. She is on florinef at this time. Patient with h/o Parkinson disease, was taking Carbidopa/levodopa. She states that her BP goes low because of carbidopa Initial visit was 12/2017. Also ACTH Stim test was normal. Patient reports that her BP fluctuates quite a bit. Hypothyroidism: PCP started T3 at 25 mcg in 05/2017, added LT4 at 50 mcg in 08/2017. Normal TPO AB Patient was advised to stop CYtomel in 12/2017. TFTs rom 10/2019 are wnl Currently she is on levothyroxine 50 mcg once daily. Takes it along with her morning meds. Not on biotin. Reports cold intolerance all the time, which did not improve even after levothyroxine initiation. Reports increase in hair fall. Denied palpitations and tremors. Has h/o atrial fibrillation and is on Xarelto. HISTORY Past Medical History: Diagnosis Date Allergic rhinitis Arthritis Atrial fibrillation B12 deficiency 05/10/2018 B12 <400 Bronchiectasis 06/27/2018 Carpal tunnel syndrome Fibromyalgia Hiatal hernia Hyperlipidemia Hypothyroidism Interstitial cystitis Osteoporosis Parkinson's disease 2017 Prediabetes 11/02/2019 Pulmonary nodule 06/27/2018 Thyroid disease Past Surgical History: Procedure Laterality Date APPENDECTOMY COLONOSCOPY 2016 Dr. Hanson, no polyps CYST EXCISION Finger ELECTROMAGNETIC NAVIGATION (SHX) N/A 12/28/2019 Surgeon: Cori Bates DO; [facility] ENDOBRONCHIAL ULTRASOUND-TRANSBRONCHIAL FNA (SHX) N/A 12/28/2019 Surgeon: Cori Bates DO; [facility] ESOPHAGOGASTRODUODENOSCOPY N/A 07/07/2018 Surgeon: Felicitas Vicente MD; Location: [facility] FLEXIBLE BRONCHOSCOPY N/A 12/28/2019 Surgeon: Cori Bates DO; [facility] HB INJ THERAPEUTIC CARPAL TUNNEL HYSTERECTOMY due to endometriosis LAMINECTOMY,>2 SGMT,LUMBAR LAPAROSCOPY,SURG,COLPOPEXY due to endometriosis NEUROMA EXCISION Rothman's neuroma excision, left foot 02/22, right foot 06/23 SURGICAL HISTORY OTHER (SHX) Pudendal nerve entrapment surgery TONSILLECTOMY TOTAL HIP ARTHROPLASTY Right TRIGGER FINGER RELEASE thumb Family History Problem Relation Age of Onset Breast Cancer Mother Hypertension Mother Skin Cancer Brother Hyperlipidemia Brother [place] (myocardial infarction) Brother Social History Socioeconomic History [...] file Gets together: Not on file Attends zoroastrian service: Not on file Active member of [...] file Social History Narrative Not on file REVIEW OF SYSTEMS Constitutional: Denies weight changes, + fatigue Eyes: denies vision problems Cardiovascular: denies chest pain and denies palpitations. Respiratory: denies chest congestion and denies shortness of breath. Musculoskeletal: denies joint pains or muscle pains GI: denies bowel changes. Denies nausea, vomiting or abdominal pain Neuro: denies headache and denies tremor. Endocrine: Denies intolerance to cold or heat OBJECTIVE Nursing Notes reviewed. Vital signs Reviewed Vitals: Vitals: 02/06/20 0828 02/06/20 0834 BP: (!) 151/78 (!) 153/72 BP Location: Left arm Patient Position: Sitting BP CUFF SIZE: Adult Small Pulse: 66 Weight: 107 lb (48.5 kg) Height: 5' 2" (1.575 m) BMI: Body mass index is 19.57 kg/m. Visit on 07/20/18: 20.19 kg/(m^2) BMI. Visit on 04/21/18: 19.97 kg/(m^2) BMI. Visit on 01/13/18: 19.86 kg/(m^2) BMI. Physical Exam Constitutional: resting comfortably in no distress. Head: Normocephalic, Atraumatic, No facial lesions observed Eyes:Non-icteric. No lid lag, proptosis, or stare noted. Neck: Normal range of motion. Neck supple. No thyromegaly present. Cardiovascular: regular rate and rhythm, no murmurs, intact distal pulses, no edema. Pulmonary/Chest: normal breath sounds, clear to auscultation bilaterally,no distress. Abdominal: Soft, non-tender, non-distended. Neurological: alert, not disoriented. DTR's normal. Psychiatric: Appropriate mood and affect. Current Outpatient Medications Medication Sig Dispense Refill albuterol 2.5 mg /3 mL (0.083 %) nebulizer solution USE IN NEBULIZER 1 VIAL TWICE A DAY levothyroxine 50 mcg tablet Take 50 mcg by mouth every morning. propafenone 150 mg tablet Take 150 mg by mouth every 8 (eight) hours. RYTARY 61.25-245 mg CpSR Take 1 capsule by mouth 3 (three) times daily. simvastatin 10 mg tablet Take 10 mg by mouth at bedtime. XARELTO 20 mg tablet No current facility-administered medications for this visit. \\ Component Latest Ref Rng & Units 01/13/2018 01/13/2018 01/13/2018 01/13/2018 3:15 PM 3:15 PM 3:15 PM 3:15 PM TSH 0.45 - 4.70 mIU/L 0.19 (L) FREE T4 0.78 - 2.20 ng/dL 0.77 (L) FREE T3 2.77 - 5.27 pg/mL 3.58 TPO Ab 0.0 - 100.0 WHO Units 49.7 Component Latest Ref Rng & Units 01/22/2018 01/22/2018 01/22/2018 01/22/2018 9:31 AM 9:01 AM 8:21 AM 8:21 AM MIO 0 4.5 - 23.0 ug/dL 9.3 MIO 30 ug/dL 20.4 MIO 60 ug/dL 24.5 ACTH 6 - 58 pg/mL 9 Component Latest Ref Rng & Units 07/20/2018 07/20/2018 04/21/2018 04/21/2018 12:04 PM 12:04 PM 1:05 PM 1:05 PM TSH 0.45 - 4.70 mIU/L 1.61 2.16 FREE T4 0.78 - 2.20 ng/dL 1.24 1.8 FREE T3 2.77 - 5.27 pg/mL 2.70 (L) ASSESSMENT/PLAN ICD-10-CM ICD-9-CM 1. Primary hypothyroidism E03.9 244.9 2. Blood pressure elevated without history of HTN R03.0 796.2 Primary hypothyroidism (primary encounter diagnosis) Comment: Clinically euthyroid TFTs normal in 10/2019 Plan: - continue LT4 50 mcg daily-- refills sent Blood pressure elevated without history of HTN Comment: BP continues to fluctuate at home. Wide variations. Plan: Keep monitoring BP at home. Bog machine to next visit Consider midodrine/florinef if needed Return in about 1 year (around 02/05/2021). Kya Scott MD Super[employer] Endocrinology, Diabetes and Metabolism documented in this encounter Plan of Treatment Date Type Specialty Care Team Description 02/09/2020 Office Visit Pulmonary Disease Cori Bates, [address] [place] [phone] Health Maintenance Due Date Last Done Comments DTaP,Tdap,and Td Vaccines (1 - Tdap) 1961 Zoster Recombinant Vaccine (SHINGRIX) (1 of 2) 1992 Medicare Wellness Visit 2007 Osteoporosis Screening 2007 PNEUMOCOCCAL VACCINES 65+ (1 of 1 - PPSV23) 2007 INFLUENZA VACCINE (#1) 2019 02/03/2018 Depression Screening 12/27/2020 12/28/2019 documented as of this encounter Results Not on filedocumented in this encounter Visit Diagnoses Diagnosis Primary hypothyroidism - Primary Unspecified hypothyroidism Blood pressure elevated without history of HTN Elevated blood pressure reading without diagnosis of hypertension documented in this encounter Insurance Payer Benefit Plan Subscriber ID Effective Dates Phone Address Type / Group [facility] [id number] 2012-Madeline [phone] [address] PPO/POS [place] - OUT OF t 87 [id number] [place] [address] documented as of this encounter
--- OUTSIDE RECORDS SUMMARY | 2020-03-21 07:50 | XMS REPORT | Summary of Care ---
:1940 Author Organization [facility] Address [address] [place] [address] Care Team Providers Name Role Phone Breanne Campbell MD Primary Care Provider Reason for Visit Reason Comments Rx Concern/Question Encounter Details Date Type Department Care Team Description 12/29/2019 Telephone [facility] Cori Bates DO Rx Concern/Question Pulmonary Clinic [address] , [address] [place] [phone] Allergies Active Allergy Reactions Severity Noted Date Comments Codeine Nausea and/or Vomiting 01/13/2018 Pentazocine Lactate Hives 01/13/2018 Rapid he art rate, itching Tramadol Dizziness, 01/13/2018 Hallucinations, Itching Acetaminophen Hypertension 01/13/2018 Hives, itching Tramadol Hcl Dizziness, 01/13/2018 Hallucinations, Itching Hydrocodone-Acetaminophe Hives, Itching, 01/13/2018 n Hypertension documented as of this encounter (statuses as of 12/30/2019) Medications No known medicationsdocumented as of this encounter (statuses as of 12/30/2019) Active Problems Problem Noted Date Bronchiectasis without complication 12/09/2019 Overview: Added automatically from request for aruna angela [id number] Abnormal CT scan of lung 11/02/2019 Granulomatous [...] as of this encounter (statuses as of 12/30/2019) Resolved Problems Problem Noted Date Resolved Date Interstitial cystitis 10/20/2019 documented as of this encounter (statuses as of 12/30/2019) Immunizations Name Administration Dates Next Due Influenza [...] this encounter Miscellaneous Notes Telephone Encounter - Denia Callaway MA - 12/30/2019 3:15 PM CDTPatient was informed and verbalized understanding. elephone Encounter - Cori Bates DO - 12/30/2019 10:33 AM CDTYes she should continue to take it. Thanks. elephone Encounter - Denia Callaway MA - 12/29/2019 10:[address] Bates for advise S/P Electromagnetic Navigation;Endobronchial Ultrasound-Transbronchial;Flexible Bronchoscopy elephone Encounter - Alexis Salinas - 12/29/2019 9:54 AM CDTPatient states she got a procedure done yesterday and is wanting to know if she is still needing to take nebulizer. Please advise. documented in this encounter Plan of Treatment Date Type Specialty Care Team Description 02/06/2020 Office Visit Endocrinology Diabetes & Kya Gould MD Metabolism [address] [place] [address] [phone] 02/09/2020 Office Visit Pulmonary Disease Cori Bates DO [address] [place] [phone] Health Maintenance Due Date Last Done Comments [...] Phone Address Type / Group [facility] [id number] 2012-Madeline [phone] [address] PPO/POS [place] - OUT OF t 87 [id number] [place] [address] documented as of this encounter
--- OUTSIDE RECORDS SUMMARY | 2020-03-21 07:50 | XMS REPORT | Summary of Care ---
:1940 Author Organization [facility] - [facility] Address [address] [place] [address] Care Team Providers Name Role Phone Breanne Campbell MD Primary Care Provider Reason for Visit Reason Comments Follow-up HYPOTHYROIDISM Encounter Details Date Type Department Care Team Description 02/06/2020 Office Visit [facility] Kya Scott, Primary hy pothyroidism (Primary Dx); Endocrinology- MD Blood pressure elevated without history of HTN [address], [address] [place] [phone] Allergies Active Allergy Reactions Severity Noted Date [...] Added automatically from request for aruna angela [id number] Abnormal CT scan of lung 11/02/2019 Granulomatous [...] N/A 07/07/2018 Surgeon: Felicitas Vicente MD; Location: [facility] FLEXIBLE BRONCHOSCOPY N/A 12/28/2019 Surgeon: Cori Bates DO; [facility] HB INJ THERAPEUTIC CARPAL TUNNEL HYSTERECTOMY due to endometriosis LAMINECTOMY,>2 SGMT,LUMBAR LAPAROSCOPY,SURG,COLPOPEXY due to endometriosis NEUROMA EXCISION Rothman's neuroma excision, left foot 02/22, right foot 06/23 SURGICAL HISTORY OTHER (SHX) Pudendal nerve entrapment surgery TONSILLECTOMY TOTAL HIP ARTHROPLASTY Right TRIGGER FINGER RELEASE thumb Family History Problem Relation Age of Onset Breast Cancer Mother Hypertension Mother Skin Cancer Brother Hyperlipidemia Brother [place] (myocardial infarction) Brother Social History Socioeconomic History [...] file Gets together: Not on file Attends methodist service: Not on file Active member of [...] 1 year (around 02/05/2021). Kya Scott MD [employer] Endocrinology, Diabetes and Metabolism documented in this encounter Plan of Treatment Date Type Specialty Care Team Description 02/09/2020 Office Visit Pulmonary Disease Cori Bates, [address] [place] [phone] Health Maintenance Due Date Last Done Comments [...] Effective Dates Phone Address Type / Group [facility] [id number] 2012-Madeline [phone] [address] PPO/POS [place] - OUT OF t 87 [id number] [place] [address] documented as of this encounter
--- OUTSIDE RECORDS SUMMARY | 2020-03-21 07:51 | XMS REPORT | Summary of Care ---
:1940 Author Organization [facility] Address [address] [place] [address] Care Team Providers Name Role Phone Breanne Campbell MD Primary Care Provider Reason for Referral (Routine) Status Reason Specialty Diagnoses / Referred By Referred To Procedures Contact Contact New Request Infectious Diagnoses Pulmonary Mycobacterium avium complex (MAC) infection Cori Bates Disease Procedures CONSULT/REFERRAL INFECTIOUS DISEASE DO [address] [place] [phone] Reason for Visit Reason Comments Follow-up Bronchiectasis without compl ication Encounter Details Date Type Department Care Team Description 02/09/2020 Office Visit [facility] Cori Bates DO Pulmonary Mycobacterium [facility] [address] [place] [address] avium complex (MAC) [address] [place] [address] CARLOS EDUARDO [place] infection (Primary Dx) [address] [place] [phone] Allergies Active Allergy Reactions Severity Noted Date Comments Codeine Nausea and/or Vomiting 01/13/2018 Pentazocine Lactate Hives 01/13/2018 Rapid he art rate, itching Tramadol Dizziness, 01/13/2018 Hallucinations, Itching Acetaminophen Hypertension 01/13/2018 Hives, itching Tramadol Hcl Dizziness, 01/13/2018 Hallucinations, Itching Hydrocodone-Acetaminophe Hives, Itching, 01/13/2018 n Hypertension documented as of this encounter (statuses as of 02/09/2020) Medications Medication Sig Dispensed Refills Start Date [...] as of this encounter (statuses as of 02/09/2020) Active Problems Problem Noted Date Bronchiectasis without complication 12/09/2019 Overview: Added automatically from request for aruna angela [id number] Abnormal CT scan of lung 11/02/2019 Granulomatous [...] as of this encounter (statuses as of 02/09/2020) Resolved Problems Problem Noted Date Resolved Date Interstitial cystitis 10/20/2019 documented as of this encounter (statuses as of 02/09/2020) Immunizations Name Administration Dates Next Due Influenza Virus Vaccine 02/03/2018 documented as of this encounter Social History Tobacco Use Types Packs/Day Years Used Date Never Smoker Smokeless Tobacco: Never Used Alcohol Use Drinks/Week oz/Week Comments No Sex Assigned at Date Recorded Not on file COVID-19 Exposure Response Date Recorded In the last month, have you been in contact with No / Unsure 02/09/2020 9:26 AM CDT someone who was confirmed or suspected to have Coronavirus / COVID-19? documented as of this encounter Last Filed Vital Signs Vital Sign Reading Time Taken Comments Blood Pressure 167/78 02/09/2020 10:01 AM CDT Pulse 64 02/09/2020 9:59 AM CDT Temperature - - Respiratory Rate 19 02/09/2020 9:59 AM CDT Oxygen Saturation 97% 02/09/2020 9:59 AM CDT Inhaled Oxygen Concentration - - Weight 48.5 kg (107 lb) 02/09/2020 9:59 AM CDT Height 157.5 cm (5' 2") 02/09/2020 9:59 AM CDT Body Mass Index 19.57 02/09/2020 9:59 AM CDT documented in this encounter Progress Notes Cori Bates DO - 02/09/2020 9:40 AM CDT [facility] Chief Complaint: Follow up after lung biopsy History of Present Illness: Natty Armenta is a 79 year old female here for follow up after bronchoscopy. Since last visit, shortness of breath is unchanged. Gets short of breath with exertion. Cough is still there but may be a bit better. Not productive. Biggest concern for her is the shortness of breath. Past Medical History: has a past medical history of Allergic rhinitis, Arthritis, Atrial fibrillation, B12 deficiency (05/10/2018), Bronchiectasis (06/27/2018), Carpal tunnel syndrome, Fibromyalgia, Hiatal hernia, Hyperlipidemia, Hypothyroidism, Interstitial cystitis, Osteoporosis, Parkinson's disease (2017), Prediabetes (11/02/2019), Pulmonary nodule (06/27/2018), and Thyroid disease. Past Surgical History: has a past surgical history that includes hb inj therapeutic carpal tunnel; tonsillectomy; appendectomy; laminectomy,>2 sgmt,lumbar; colonoscopy (2016); neuroma excision; total hip arthroplasty (Right); trigger finger release; surgical history other (shx); cyst excision; laparoscopy,surg,colpopexy; hysterectomy; esophagogastroduodenoscopy (N/A, 07/07/2018); electromagnetic navigation (shx) (N/A, 12/28/2019); endobronchial ultrasound-transbronchial fna (shx) (N/A, 12/28/2019); and flexible bronchoscopy (N/A, 12/28/2019). Family History: family history includes Breast Cancer in her mother; Hyperlipidemia in her brother; Hypertension in her mother; [place] (myocardial infarction) in her brother; Skin Cancer in her brother. Social History: reports that she has never smoked. She has never used smokeless tobacco. She reports that she does not drink alcohol or use drugs. Review of Systems: Review of Systems Constitutional: Negative. HENT: Negative. Eyes: Negative. Respiratory: Positive for cough and shortness of breath. Cardiovascular: Negative. Gastrointestinal: Negative. Genitourinary: Negative. Musculoskeletal: Negative. Skin: Negative. Neurological: Negative. Psychiatric/Behavioral: Negative. Endocrine: Endocrine negative Objective: BP (!) 167/78 | Pulse 64 | Resp 19 | Ht 5' 2" (1.575 m) | Wt 107 lb (48.5 kg) | SpO2 97% | BMI19.57 kg/m Physical Exam Constitutional: She is oriented to person, place, and time. She appears well- developed and well-nourished. HENT: Head: Normocephalic and atraumatic. Eyes: Conjunctivae and EOM are normal. Neck: Normal range of motion. Neck supple. Cardiovascular: Normal rate and regular rhythm. Pulmonary/Chest: Effort normal and breath sounds normal. Abdominal: Soft. Bowel sounds are normal. Musculoskeletal: Normal range of motion. Neurological: She is alert and oriented to person, place, and time. Skin: Skin is warm and dry. Psychiatric: She has a normal mood and affect. Her behavior is normal. Judgment and thought content normal. Labs/Studies: CT nodular changes and bronchiectasis shaun in RLL medial segment BAL cell count 60% lymphs BAL cytology no malignancy Lymph node 7 negative for malignancy, lymphoid tissue present RLL needle aspiration/biopsy - necrotizing granulomas Fungal cultures negative AFB culture - Aspergillus and MAC PFT normal spirometry, lung volumes, and diffusion Assessment: ICD-10-CM ICD-9-CM 1. Pulmonary Mycobacterium avium complex (MAC) infection A31.0 031.0 Patient is symptomatic and meets criteria for disease vs colonization given necrotizing granulomas and positive bronchoscopic cultures Plan: Given patient on two medications has drug interactions with standard regimen (Xarelto and propafenone) will refer to infectious disease for treatment documented in this encounter Plan of Treatment Date Type Specialty Care Team Description 06/07/2020 Office Visit Pulmonary Disease Cori Bates DO [address] [place] [address] [phone] 02/11/2021 Office Visit Endocrinology Diabetes & [facility]es[facility] Kya vogel MD Metabolism [address] [place] [address] [phone] Health Maintenance Due Date Last Done Comments DTaP,Tdap,and Td Vaccines (1 - Tdap) 1961 Zoster Recombinant Vaccine (SHINGRIX) (1 of 2) 1992 Medicare Wellness Visit 2007 Osteoporosis Screening 2007 PNEUMOCOCCAL VACCINES 65+ (1 of 1 - PPSV23) 2007 INFLUENZA VACCINE (#1) 2019 02/03/2018 Depression Screening 12/27/2020 12/28/2019 documented as of this encounter Results Not on filedocumented in this encounter Visit Diagnoses Diagnosis Pulmonary Mycobacterium avium complex (M AC) infection - Primary Pulmonary diseases due to other mycobact eria documented in this encounter Insurance Payer Benefit Plan Subscriber ID Effective Dates Phone Address Type / Group [facility] [id number] 2012-Madeline [phone] [address] PPO/POS [place] - OUT OF t 87 [id number] [place] [address] documented as of this encounter
--- OUTSIDE RECORDS SUMMARY | 2020-03-21 07:51 | XMS REPORT | Summary of Care ---
:1940 Author Organization [facility] Address [address] [place] [address] Care Team Providers Name Role Phone Breanne Campbell MD Primary Care Provider Reason for Visit Reason Comments LAB WORK Encounter Details Date Type Department Care Team Description 02/13/2020 Polisher Dial Visit [facility] Clinical Carole Darling MD [id number] [place] [address] Bronchiectasis without Laboratory - [facility], [facility] complication [address] 5th [place] [address] Allergies Active Allergy Reactions Severity Noted Date Comments Codeine Nausea and/or Vomiting 01/13/2018 Pentazocine Lactate Hives 01/13/2018 Rapid he art rate, itching Tramadol Dizziness, 01/13/2018 Hallucinations, Itching Acetaminophen Hypertension 01/13/2018 Hives, itching Tramadol Hcl Dizziness, 01/13/2018 Hallucinations, Itching Hydrocodone-Acetaminophe Hives, Itching, 01/13/2018 n Hypertension documented as of this encounter (statuses as of 02/13/2020) Medications Medication Sig Dispensed Refills Start Date [...] as of this encounter (statuses as of 02/13/2020) Active Problems Problem Noted Date Bronchiectasis without complication 12/09/2019 Overview: Added automatically from request for aruna angela [id number] Abnormal CT scan of lung 11/02/2019 Granulomatous [...] as of this encounter (statuses as of 02/13/2020) Resolved Problems Problem Noted Date Resolved Date Interstitial cystitis 10/20/2019 documented as of this encounter (statuses as of 02/13/2020) Immunizations Name Administration Dates Next Due Influenza Virus Vaccine 02/03/2018 documented as of this encounter Social History Tobacco Use Types Packs/Day Years Used Date Never Smoker Smokeless Tobacco: Never Used Alcohol Use Drinks/Week oz/Week Comments No Sex Assigned at Date Recorded Not on file COVID-19 Exposure Response Date Recorded In the last month, have you been in contact with No / Unsure 02/11/2020 3:54 PM CDT someone who was confirmed or suspected to have Coronavirus / COVID-19? documented as of this encounter Last Filed Vital Signs Not on filedocumented in this encounter Nursing Notes Princess Fernanda Echevarria - 02/13/2020 2:45 PM CDT Venipuncture collection performed by clean technique on the right anticubitus. Total of 1 attempts were made. Slight pressure and a bandage/dressing were applied to the site(s). The patient experiencedno complications. The following specimens were processed according to instructions and sent to [facility] laboratories per lab order on 02/13/2020: LT BLUE SST 3 RED 2 LAV PPT DK GREEN (LiHep) DK GREEN (SodH) TOBIN DK BLUE (K2) DK BLUE (S) ACD Blood Culture NIPT/NTD documented in this encounter Plan of Treatment Date Type Specialty Care Team Description 02/20/2020 Office Visit Infectious Disease Haley Palma MD [address] [place] [phone] 06/07/2020 Office Visit Pulmonary Disease Cori Bates, DO [address] [place] [phone] 02/11/2021 Office Visit Endocrinology Diabetes & Kesired Kya vogel MD [address] [address] Name Type Priority Associated Diagnoses Date/Ti me ASPERGILLUS AB (ID) LAB Routine Bronchiectasis withou t 02/13/2020 3:14 PM complication CDT Misc. Sendout- Aspergillus LAB Routine Bronchiectasis without 02/13/2020 3:14 PM Antibodies by CF and ID complication CDT [id number] Misc. Sendout- Aspergillus LAB Routine Bronchiectasis without 02/13/2020 3:14 PM Galactomannan Antigen by complication CDT EIA, Serum [id number] IMMUNOGLOBULIN E, SERUM LAB Routine Bronchiectasis wi thout 02/13/2020 3:14 PM complication CDT Misc. Sendout- [id number] LAB Routine Bronchiectasis wit hout 02/13/2020 3:14 PM (1,3)-Iwza-Z-Qlgzgo complication CDT (Fungitell) Health Maintenance Due Date Last Done Comments DTaP,Tdap,and Td Vaccines (1 - Tdap) 1961 Zoster Recombinant Vaccine (SHINGRIX) (1 of 2) 1992 Medicare Wellness Visit 2007 Osteoporosis Screening 2007 PNEUMOCOCCAL VACCINES 65+ (1 of 1 - PPSV23) 2007 INFLUENZA VACCINE (#1) 2019 02/03/2018 Depression Screening 12/27/2020 12/28/2019 documented as of this encounter Results Not on filedocumented in this encounter Visit Diagnoses Diagnosis Bronchiectasis without complication Bronchiectasis without acute exacerbatio n documented in this encounter Insurance Payer Benefit Plan Subscriber ID Effective Dates Phone Address Type / Group [facility] [id number] 2012-Madeline [phone] [address] PPO/POS [place] - OUT OF t 87 [id number] [place] [address] documented as of this encounter
--- OUTSIDE RECORDS SUMMARY | 2020-03-21 07:51 | XMS REPORT | Summary of Care ---
:1940 Author Organization [facility] Address [address] [place] [address] Care Team Providers Name Role Phone Breanne Campbell MD Primary Care Provider Reason for Referral (Routine) Status Reason Specialty Diagnoses / Referred By Referred To Procedures Contact Contact New Request Infectious Diagnoses Pulmonary Mycobacterium avium complex (MAC) infection Cori Bates Disease Procedures CONSULT/REFERRAL INFECTIOUS DISEASE DO [address] [place] [address] Reason for Visit Reason Comments Follow-up Bronchiectasis without compl ication Encounter Details Date Type Department Care Team Description 02/09/2020 [facility] Visit [facility] Cori Bates DO Pulmonary Mycobacterium [facility] [address] [place] [address] avium complex (MAC) [address] [place] [address] CARLOS EDUARDO [place] infection (Primary Dx) [address] [place] [phone] Allergies Active Allergy Reactions Severity Noted Date [...] Added automatically from request for aruna angela [id number] Abnormal CT scan of lung 11/02/2019 Granulomatous [...] Bates DO - 02/09/2020 9:40 AM CDT [facility] Inter[facility] Pul[facility] Chief Complaint: Follow up [...] in her brother; Hypertension in her mother; [place] (myocardial infarction) in her brother; Skin Cancer [...] Office Visit Pulmonary Disease Cori Bates DO [address] [place] [address] [phone] 02/11/2021 Office Visit Endocrinology Diabetes & Kesired Kya vogel MD Metabolism [address] [place] [address] [phone] Health Maintenance Due Date Last Done Comments [...] Effective Dates Phone Address Type / Group [facility] [id number] 2012-Madeline [phone] [address] PPO/POS [place] - OUT OF t 87 [id number] [place] [address] documented as of this encounter
--- OUTSIDE RECORDS SUMMARY | 2020-03-21 07:51 | XMS REPORT | Summary of Care ---
:1940 Author Organization [facility] Address [address] [place] [address] Care Team Providers Name Role Phone Breanne Campbell MD Primary Care Provider Reason for Visit Reason Comments Establish Care (Routine) Status Reason Specialty Diagnoses / Referred By Referred To Procedures Contact Contact New Request Infectious Diagnoses Pulmonary Mycobacterium avium complex (MAC) infection Cori Bates, Disease Procedures CONSULT/REFERRAL INFECTIOUS DISEASE DO [facility] [place] [address] Encounter Details Date Type Department Care Team Description 02/13/2020 Office Visit [facility] Mainor Darling MD [address] [place] [address] [id number] [place] [address] Bronchiectasis without Infectious Haley Palma MD [address] [place] [phone] complication (Primary Diseases- [place] Dx) [facility] [address] [place] [address] Allergies Active Allergy Reactions Severity Noted Date [...] automatically from request for aruna julio césar [id number] Abnormal CT scan of lung 11/02/2019 Granulomatous [...] Sign Reading Time Taken Comments Blood Pressure 171/75 02/13/2020 1:03 PM CDT Pulse 69 02/13/2020 1:03 PM CDT Temperature 36.3 C (97.3 F) 02/13/2020 1:02 PM CDT Respiratory Rate 18 02/13/2020 1:02 PM CDT Oxygen Saturation - - Inhaled Oxygen Concentration - - Weight 48.2 kg (106 lb 4.8 oz) 02/13/2020 1:02 PM CDT Height 157.5 cm (5' 2") 02/13/2020 1:02 PM CDT Body Mass Index 19.44 02/13/2020 1:02 PM CDT documented in this encounter Progress Notes Haley Palma MD - 02/13/2020 1:00 PM CDT Visit Type: ID New Outpatient Date of service: 02/13/2020 Referred by: Cori Bates DO [address] [place] [address] Chief Complaint: "I need an ID evaluation for pulmonary MAC " HPI: Natty Armenta is a 79 year old female here today for infectious disease evaluation. Her past medical history includes bronchiectasis, pre DM, Parkinson Disease, Atrial fibrillation on AC. Patient has been following with pulmonary clinic due to shortness of breath and dry cough. Her CTchest showed pulmonary nodules, tree in bud opacities, RLL consolidations. she had bronchoscopy done on 12/27 that showed necrotizing granulomas on biopsy and cultures grew MAC and Aspergillus niger. She was sent here for further evaluation. She states she has been increasingly short of breath over the past year, also with dry cough. Denieshemoptysis, sputum production, night sweats, fevers or chills. She lost some weight, 10lbs over past3 years. She states SOB really bothers her and does not allow her to function as she used to, and she used to be very active. She has some rhinitis which is chronic but otherwise ROS is negative. She was born in the and never liver outside [place], no recent travel. Used to be a teacher, deniesexposure to birds/other animals. Never smoker. PMH: Past Medical History: Diagnosis Date Allergic rhinitis Arthritis Atrial fibrillation B12 deficiency 05/10/2018 B12 <400 Bronchiectasis 06/27/2018 Carpal tunnel syndrome Fibromyalgia Hiatal hernia Hyperlipidemia Hypothyroidism Interstitial cystitis Osteoporosis Parkinson's disease 2017 Prediabetes 11/02/2019 Pulmonary nodule 06/27/2018 Thyroid disease MEDICATIONS Current Outpatient Medications on File Prior to Visit Medication Sig Dispense Refill levothyroxine 50 mcg tablet Take 50 mcg by mouth every morning. propafenone 150 mg tablet Take 150 mg by mouth every 8 (eight) hours. RYTARY 61.25-245 mg CpSR Take 1 capsule by mouth 3 (three) times daily. simvastatin 10 mg tablet Take 10 mg by mouth at bedtime. XARELTO 20 mg tablet albuterol 2.5 mg /3 mL (0.083 %) nebulizer solution USE IN NEBULIZER 1 VIAL TWICE A DAY No current facility-administered medications on file prior to visit. ALLERGIES Allergies Allergen Reactions Codeine Nausea and/or Vomiting Talwin [Pentazocine Lactate] Hives Rapid heart rate, itching Tramadol Dizziness, Hallucinations and Itching Tylenol [Acetaminophen] Hypertension Hives, itching Ultram [Tramadol Hcl] Dizziness, Hallucinations and Itching Vicodin [Hydrocodone-Acetaminophen] Hives, Itching and Hypertension SOCIAL HISTORY Social History Socioeconomic History Marital status: Spouse [...] file Gets together: Not on file Attends uatsdin service: Not on file Active member of [...] file Social History Narrative Not on file FAMILY HISTORY Family History Problem Relation Age of Onset Breast Cancer Mother Hypertension Mother Skin Cancer Brother Hyperlipidemia Brother [place] (myocardial infarction) Brother REVIEW OF SYSTEMS Constitutional: no fever, malaise +weight loss Eyes: no vision changes ENT: no hearing loss or sorethroat Cardiovascular: No CP, palpitations, orthopnea Respiratory: +dyspnea, + cough, sputum production Gastrointestinal: no heartburn, nausea, vomitting or diarhea Genitourinary: no dysuria, frequency or hesitancy Musculoskeletal: no joint pain or stiffness Skin: + rash Neuro: no SEVERINO, seizures PHYSICAL EXAM Constitutional: alert and oriented x 4, no apparent distress. BP (!) 171/75 | Pulse 69 | Temp 36.3 C (97.3 F) (Oral) | Resp 18 | Ht 1.575 m (5' 2") | Wt 48.2 kg (106 lb 4.8 oz) | BMI 19.44 kg/m Eyes: EOMI, anicteric sclerae. Moist pink conjunctivae ENT: exam is normal CV: RRR, S1, S2 normal; no murmurs, rubs or gallops Respiratory: clear to auscultation bilaterally, normal respiratory effort GI: abdomen soft; non-tender; non-distended; normoactive bowel sounds Musculoskeletal: no digital clubbing or cyanosis Skin: warm and dry. No rash Neuro: no focal deficits Hem/lymphatic: no lymphadenopathy LABORATORY WHITE BLOOD CELL COUNT-Q (Thousand/uL) Date Value 10/24/2019 5.5 HEMOGLOBIN-Q (g/dL) Date Value 10/24/2019 12.8 PLATELET COUNT-Q (Thousand/uL) Date Value 10/24/2019 208 CREATININE-Q (mg/dL) Date Value 10/24/2019 0.85 GLUCOSE-Q Date Value 10/24/2019 89 mg/dL 10/24/2019 NEGATIVE ALT-Q (U/L) Date Value 10/24/2019 14 AST-Q (U/L) Date Value 10/24/2019 17 ALKALINE PHOSPHATASE-Q (U/L) Date Value 10/24/2019 87 BAL culture 12/27 aspergillus niger, ERIK Pathology with necrotizing granulomas, no malignant cells ASSESSMENT 79 year old F with chronic cough and dyspnea currently with following problems 1. Chronic SOB and cough - patient without significant underlying lung disease or immunosuppression,had CT scan of chest done with nodular changes (tree in bud), peribronchial thickening, bronchiectasis, and RLL consolidation. All her symptoms are chronic and gradually worsening over a year. Bronchoscopy with biopsy showed necrotizing granulomas and cultures with ERIK and aspergillus niger. PulmonaryMAC is likely the culprit however cannot rule out chronic pulmonary aspergillosis at this time, given positive cultures. Will order serology and galactomannan, and consider treatment on next visit. Unfortunately multiple interactions make treatment challenging - she is on propafenone that would cause QTc prolongation if used with voriconazole and Xarelto cannot be given with rifampin (for MAC). 2. Afib on AC - significant potential interactions with propafenone, xarelto, rifampin, voriconazole, azithromycin. Propafenone, voriconazole and azithromycin can prolong QTc, will try to reach out to blanchard grinder operator 3. Other comorbidities: hypothyroidism, Parkinson Disease, pre DM PLAN -will check aspergillus IgG, galactomannan, fungitell today -if positive will consider treatment of aspergillosis -if propafenon can be switched to other antiarrhythmic (without QTc prolonging potential) can consider voriconazole (that would also help for MAC treatment which includes azithromycin) -if unable to switch medications will consider isavuconazole -if aspergillosis not confirmed or not improving with treatment will start treatment for pulmonary MAC - likely rifabutin instead of rifampin (patient on xarelto), another option would be to switch to warfarin (need to discuss with other providers) -follow up in 1 week Discussed importance of compliance with medications Keep follow up appointment with PCP Instructed patient to contact clinic or return if any new problems RTC in 1 week documented in this encounter Plan of Treatment Date Type Specialty Care Team Description 02/20/2020 Office Visit Infectious Disease Haley Palma MD [address] [place] [phone] 06/07/2020 Office Visit Pulmonary Disease Cori Bates DO [address] [place] [phone] 02/11/2021 Office Visit Endocrinology Diabetes & Kesired Kya vogel MD [address] [address] [phone] Name Type Priority Associated Diagnoses Date/Ti me ASPERGILLUS AB (ID) LAB Routine Bronchiectasis withou t 02/13/2020 3:14 PM complication CDT Misc. Sendout- Aspergillus LAB Routine Bronchiectasis without 02/13/2020 3:14 PM Antibodies by CF and ID complication CDT [id number] Misc. Sendout- Aspergillus LAB Routine Bronchiectasis without 02/13/2020 3:14 PM Galactomannan Antigen by complication CDT EIA, Serum [id number] IMMUNOGLOBULIN E, SERUM LAB Routine Bronchiectasis wi thout 02/13/2020 3:14 PM complication CDT Misc. Sendout- [id number] LAB Routine Bronchiectasis wit hout 02/13/2020 3:14 PM (1,3)-Fwre-C-Bvikff complication CDT (Fungitell) Name Type Priority Associated Diagnoses Order S chedule ASPERGILLUS AB (ID) LAB Routine Bronchiectasis withou t Expected: complication 02/13/2020, Expires: 2020 Misc. Sendout- Aspergillus LAB Routine Bronchiectasis without Expected: Antibodies by CF and ID complication 10/2 09/2019, [id number] Expires: 2020 Misc. Sendout- Aspergillus LAB Routine Bronchiectasis without Expected: Galactomannan Antigen by complication , EIA, Serum [id number] Expires: 02/12/2021 IMMUNOGLOBULIN E, SERUM LAB Routine Bronchiectasis wi thout Expected: complication 02/13/2020, Expires: 2020 Misc. Sendout- LAB Routine Bronchiectasis wit hout Expected: (1,3)-Xgud-B-Xturfk complication 02/13/20 20, (Fungitell) Expires: 2020 Health Maintenance Due Date Last [...] encounter Visit Diagnoses Diagnosis Bronchiectasis without complication - Pr imary Bronchiectasis without acute exacerbatio n documented in this encounter Insurance Payer Benefit Plan Subscriber ID Effective Dates Phone Address Type / Group [facility] [id number] 2012-Madeline [phone] [address] PPO/POS [place] - OUT OF t 87 [id number] [place] [address] documented as of this encounter
--- OUTSIDE RECORDS SUMMARY | 2020-03-21 07:51 | XMS REPORT | Summary of Care ---
:1940 Author Organization [facility] - [facility] Address [address] [place] [address] Care Team Providers Name Role Phone Breanne Campbell MD Primary Care Provider Reason for Visit Reason Comments Establish Care (Routine) Status Reason Specialty Diagnoses / Referred By Referred To Procedures Contact Contact New Request Infectious Diagnoses Pulmonary Mycobacterium avium complex (MAC) infection Cori Bates, Disease Procedures CONSULT/REFERRAL INFECTIOUS DISEASE DO [facility] [place] [address] Encounter Details Date Type Department Care Team Description 02/13/2020 Office Visit [facility] Mainor Darling MD [address] [place] [address] [id number] [place] [address] Bronchiectasis without Infectious Haley Palma MD [address] [place] [phone] complication (Primary Diseases- [place] Dx) [facility] [address] [place] [address] Allergies Active Allergy Reactions Severity [...] automatically from request for aruna julio césar [id number] Abnormal CT scan of lung 11/02/2019 Granulomatous [...] service: 02/13/2020 Referred by: Cori Bates DO [address] [place] [address] Chief Complaint: "I need an ID evaluation [...] born in the and never liver outside [place], no recent travel. Used to be a [...] Hypertension Mother Skin Cancer Brother Hyperlipidemia Brother [place] (myocardial infarction) Brother REVIEW OF SYSTEMS Constitutional: [...] QTc, will try to reach out to ram press operator 3. Other comorbidities: hypothyroidism, Parkinson Disease, [...] Office Visit Infectious Disease Haley Palma MD [address] [place] [phone] 06/07/2020 Office Visit Pulmonary Disease Cori Bates DO [address] [place] [phone] 02/11/2021 Office Visit Endocrinology Diabetes & Kesired Kya vogel MD [address] [address] [phone] Name Type Priority Associated Diagnoses Date/Ti me ASPERGILLUS AB (ID) LAB Routine Bronchiectasis withou t 02/13/2020 3:14 PM complication CDT Misc. Sendout- Aspergillus LAB Routine Bronchiectasis without 02/13/2020 3:14 PM Antibodies by CF and ID complication CDT [id number] Misc. Sendout- Aspergillus LAB Routine Bronchiectasis without 02/13/2020 3:14 PM Galactomannan Antigen by complication CDT EIA, Serum [id number] IMMUNOGLOBULIN E, SERUM LAB Routine Bronchiectasis wi thout 02/13/2020 3:14 PM complication CDT Misc. Sendout- [id number] LAB Routine Bronchiectasis wit hout 02/13/2020 3:14 PM (1,3)-Cpmo-N-Wruhjq complication CDT (Fungitell) Name Type Priority Associated Diagnoses Order S chedule ASPERGILLUS AB (ID) LAB Routine Bronchiectasis withou t Expected: complication 02/13/2020, Expires: 2020 Misc. Sendout- Aspergillus LAB Routine Bronchiectasis without Expected: Antibodies by CF and ID complication 10/2 09/2019, [id number] Expires: 2020 Misc. Sendout- Aspergillus LAB Routine Bronchiectasis without Expected: Galactomannan Antigen by complication , EIA, Serum [id number] Expires: 02/12/2021 IMMUNOGLOBULIN E, SERUM LAB Routine Bronchiectasis wi thout Expected: complication 02/13/2020, Expires: 2020 Misc. Sendout- LAB Routine Bronchiectasis wit hout Expected: (1,3)-Cwti-Z-Lrefen complication 02/13/20 20, (Fungitell) Expires: 2020 Health [...] Effective Dates Phone Address Type / Group [facility] [id number] 2012-Madeline [phone] [address] PPO/POS [place] - OUT OF t 87 [id number] [place] [address] documented as of this encounter
--- OUTSIDE RECORDS SUMMARY | 2020-03-21 07:52 | XMS REPORT | Summary of Care ---
:1940 Author Organization [facility] - Health Address [address] [place] [address] Care Team Providers Name Role Phone Breanne Campbell MD Primary Care Provider Encounter Details Date Type Department Care Team Description 03/06/2020 Orders Only [facility] Doctor Unassigned, No [address] [facility] [place] [address] [address] [facility] [place] [phone] Allergies Active Allergy Reactions Severity Noted Date Comments Codeine Nausea and/or Vomiting 01/13/2018 Pentazocine Lactate Hives 01/13/2018 Rapid he art rate, itching Tramadol Dizziness, 01/13/2018 Hallucinations, Itching Acetaminophen Hypertension 01/13/2018 Hives, itching Tramadol Hcl Dizziness, 01/13/2018 Hallucinations, Itching Hydrocodone-Acetaminophe Hives, Itching, 01/13/2018 n Hypertension documented as of this encounter (statuses as of 03/06/2020) Medications Medication Sig Dispensed Refills Start Date End Date Status levothyroxine 50 mcg Take 50 mcg by 0 01/15/2020 Active tablet mouth every morning. propafenone 150 mg Take 150 mg by 0 12/09/2019 Active tablet mouth every 8 (eight) hours. XARELTO 20 mg tablet 0 02/01/2020 Active RYTARY 61.25-245 mg Take 1 capsule 0 12/09/2019 Active CpSR by mouth 3 (three) times daily. albuterol 2.5 mg /3 mL USE IN NEBULIZER 0 12/19/2019 Active (0.083 %) nebulizer 1 VIAL TWICE A solution DAY pravastatin 10 mg Take 1 tablet by 30 tablet 1 03/01/202004/20 Active tabletIndications: mouth at bedtime Mycobacterium avium for 60 days. complex, Please stop Hyperlipidemia, simvastatin. unspecified hyperlipidemia type documented as of this encounter (statuses as of 03/06/2020) Active Problems Problem Noted Date Bronchiectasis without complication 12/09/2019 Overview: Added automatically from request for aruna angela [id number] Abnormal CT scan of lung 11/02/2019 Granulomatous [...] as of this encounter (statuses as of 03/06/2020) Resolved Problems Problem Noted Date Resolved Date Interstitial cystitis 10/20/2019 documented as of this encounter (statuses as of 03/06/2020) Immunizations Name Administration Dates Next Due Influenza Virus Vaccine 02/03/2018 Influenza Virus Vaccine Quad .5 mL IM 6+ MO 02/13/2020 documented as of this encounter Social History [...] Treatment Date Type Specialty Care Team Description 04/02/2020 Office Visit Infectious Disease Haley Palma MD [address] [place] [phone] 06/07/2020 Office Visit Pulmonary Disease Cori Bates DO [address] [place] [phone] 02/11/2021 Office Visit Endocrinology Diabetes & Kesired Kya vogel MD Metabolism [address] [place] [address] [phone] Health Maintenance Due Date Last Done Comments DTaP,Tdap,and Td Vaccines (1 - Tdap) 1961 Zoster Recombinant Vaccine (SHINGRIX) (1 1992 of 2) Medicare Wellness Visit 2007 Osteoporosis Screening 2007 PNEUMOCOCCAL VACCINES 65+ (1 of 1 - 2007 PPSV23) Depression Screening 12/27/2020 12/28/2019 INFLUENZA VACCINE Completed 02/13/2020, 02/03/2018 documented as of this encounter Procedures Procedure Name Priority Date/Time Associated Diagnosis Comme nts EXTERNAL PROVIDER Routine 03/06/2020 12:01 AM RIB CLOTH KNITTER RECORDS documented in this encounter Results Not on filedocumented in this encounter Insurance Payer Benefit Plan Subscriber ID Effective Dates Phone Address Type / Group [employer] [employer] [place] [id number] 2012-Madeline [phone] [address] PPO/POS [place] - OUT OF t 87 [id number] [place] [address] documented as of this encounter
--- OUTSIDE RECORDS SUMMARY | 2020-03-21 07:52 | XMS REPORT | Summary of Care ---
:1940 Author Organization [facility] - [facility] Address [address] [place] [address] Care Team Providers Name Role Phone Breanne Campbell MD Primary Care Provider Reason for Visit Reason Comments Follow-up Encounter Details Date Type Department Care Team Description 02/20/2020 Office Visit [facility], July, [address] [place], [place] [phone] Mycobacterium avium Infectious Diseases- Haley Palma MD [address] [place] [phone] complex (Primary Dx) [facility] [address] [place] [phone] Allergies Active Allergy Reactions Severity Noted Date Comments Codeine Nausea and/or Vomiting 01/13/2018 Pentazocine Lactate Hives 01/13/2018 Rapid he art rate, itching Tramadol Dizziness, 01/13/2018 Hallucinations, Itching Acetaminophen Hypertension 01/13/2018 Hives, itching Tramadol Hcl Dizziness, 01/13/2018 Hallucinations, Itching Hydrocodone-Acetaminophe Hives, Itching, 01/13/2018 n Hypertension documented as of this encounter (statuses as of 02/20/2020) Medications Medication Sig Dispensed Refills Start Date [...] as of this encounter (statuses as of 02/20/2020) Active Problems Problem Noted Date Bronchiectasis without complication 12/09/2019 Overview: Added automatically from request for aruna angela [id number] Abnormal CT scan of lung 11/02/2019 Granulomatous [...] as of this encounter (statuses as of 02/20/2020) Resolved Problems Problem Noted Date Resolved Date Interstitial cystitis 10/20/2019 documented as of this encounter (statuses as of 02/20/2020) Immunizations Name Administration Dates Next Due Influenza [...] Sign Reading Time Taken Comments Blood Pressure 153/87 02/20/2020 1:14 PM ADJUNCT SPANISH INSTRUCTOR Pulse 76 02/20/2020 1:14 PM ADJUNCT SPANISH INSTRUCTOR Temperature 36.6 C (97.9 F) 02/20/2020 1:13 PM ADJUNCT SPANISH INSTRUCTOR Respiratory Rate - - Oxygen Saturation - - Inhaled Oxygen Concentration - - Weight 48.4 kg (106 lb 11.2 oz) 02/20/2020 1:13 PM ADJUNCT SPANISH INSTRUCTOR Height 157.5 cm (5' 2") 02/20/2020 1:13 PM ADJUNCT SPANISH INSTRUCTOR Body Mass Index 19.52 02/20/2020 1:13 PM ADJUNCT SPANISH INSTRUCTOR documented in this encounter Progress Notes Haley Palma MD - 02/20/2020 1:30 PM CST Visit Type: ID Followup Outpatient Date of service: 02/20/2020 CC: "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 Her past medical history includes bronchiectasis, pre DM, Parkinson Disease, Atrial fibrillation on AC. Patient was seen in ID clinic one week ago with chronic cough and cultures from BAL growing MAC and aspergillus nicer. Biopsy with necrotizing granulomas. She was here one week ago for initial evaluation. Today she reports no changes in clinical status. Spoke to ehr trainer Dr Pacheco and he toldme that she has been in sinus rhythm for a year and that he could stop propafenone and xarelto at this time. PMH: Past Medical History: Diagnosis Date Allergic rhinitis Arthritis Atrial fibrillation B12 deficiency 05/10/2018 B12 <400 Bronchiectasis 06/27/2018 Carpal tunnel syndrome Fibromyalgia Hiatal hernia Hyperlipidemia Hypothyroidism Interstitial cystitis Osteoporosis Parkinson's disease 2017 Prediabetes 11/02/2019 Pulmonary nodule 06/27/2018 Thyroid disease MEDICATIONS Current Outpatient Medications on File Prior to Visit Medication Sig Dispense Refill albuterol 2.5 mg [...] 20 mg tablet No current facility-administered medications on file prior to visit. ALLERGIES Allergies Allergen Reactions Codeine Nausea and/or Vomiting Talwin [Pentazocine Lactate] Hives Rapid heart rate, itching Tramadol Dizziness, Hallucinations and Itching Tylenol [Acetaminophen] Hypertension Hives, itching Ultram [Tramadol Hcl] Dizziness, Hallucinations and Itching Vicodin [Hydrocodone-Acetaminophen] Hives, Itching and Hypertension PHYSICAL EXAM Constitutional: alert and oriented x 4, no apparent distress. BP (!) 153/87 | Pulse 76 | Temp 36.6 C (97.9 F) (Oral) | Ht 1.575 m (5' 2") | Wt 48.4 kg (106 lb 11.2 oz) | BMI 19.52 kg/m Eyes: EOMI, anicteric sclerae. Moist pink conjunctivae ENT: exam is normal CV: RRR, S1, S2 normal; no murmurs, rubs or gallops Respiratory: clear to auscultation bilaterally, normal respiratory effort GI: abdomen soft; non-tender; non-distended; normoactive bowel sounds Musculoskeletal: no digital clubbing or cyanosis Skin: warm and dry. No rash LABORATORY WHITE BLOOD CELL COUNT-Q (Thousand/uL) Date [...] and dyspnea currently with following problems 1. Pulmonary MAC - patient without significant underlying lung disease or immunosuppression, had CT scan of chest done with nodular changes (tree in bud), peribronchial thickening, bronchiectasis, and RLL consolidation. All her symptoms are chronic and gradually worsening over a year. Bronchoscopy with biopsy showed necrotizing granulomas and cultures with ERIK and aspergillus niger. Multiple interactions make treatment challenging - she is on propafenone that would cause QTc prolongation if used with azithromycin and Xarelto cannot be given with rifampin. Per her ehr trainer both Medications can be safely stopped. 2. 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 Both antibodies and galactomannan are negative, she likely does not have chronic aspergillosis. 3. Afib on AC - need to follow with ehr trainer to adjust medications prior to starting MAC treatment 4. Other comorbidities: hypothyroidism, Parkinson Disease, pre DM PLAN -follow with ehr trainer to stop propafenone, and xarelto -if anticoagulation desired, preferable choice is warfarin -will need to switch simvastatin to pravastatin -when above medications are stopped will start treatment for MAC with rifampin, azithromycin and ethambutol. -will need treatment 12 months after sputum cultures clear -educated on possible side effects like transaminitis, optic neuritis etc -ophthalmology follow up prior to ethambutol -all above was communicated to ehr trainer over the phone Discussed with patient importance of compliance with medications Instructed patient to contact clinic or return if any new problems RTC in 6 weeks documented in this encounter Plan of Treatment Date Type Specialty Care Team Description 04/02/2020 Office Visit Infectious Disease Haley Palma MD [address] [place] [phone] 06/07/2020 Office Visit [place] [address] [place] [phone] 02/11/2021 Office Visit Endocrinology Diabetes & Kesired Kya vogel MD Metabolism [address] [place] [phone] Health Maintenance Due Date Last Done Comments DTaP,Tdap,and Td Vaccines (1 - Tdap) 1961 Zoster Recombinant Vaccine (SHINGRIX) (1 1992 of 2) Medicare Wellness Visit 2007 Osteoporosis Screening 2007 PNEUMOCOCCAL VACCINES 65+ (1 of 1 - 2007 PPSV23) Depression Screening 12/27/2020 12/28/2019 INFLUENZA VACCINE Completed 02/13/2020, 02/03/2018 documented as of this encounter Results Not on filedocumented in this encounter Visit Diagnoses Diagnosis Mycobacterium avium complex - Primary Other specified mycobacterial diseases documented in this encounter Insurance Payer Benefit Plan Subscriber ID Effective Dates Phone Address Type / Group [facility] [id number] 2012-Madeline [phone] [address] PPO/POS [place] - OUT OF t 87 [id number] [place] [address] documented as of this encounter
--- OUTSIDE RECORDS SUMMARY | 2020-03-21 07:52 | XMS REPORT | Summary of Care ---
:1940 Author Organization [facility] Address [address] [place] [address] Care Team Providers Name Role Phone Breanne Campbell MD Primary Care Provider Reason for Visit Reason Comments Orders Encounter Details Date Type Department Care Team Description 03/07/2020 Telephone [facility] Family Medicine Breanne Ramirez MD Orders - [address] [place] [facility] [place] [address] [place] [address] [phone] Allergies Active Allergy Reactions Severity Noted Date Comments Codeine Nausea and/or Vomiting 01/13/2018 Pentazocine Lactate Hives 01/13/2018 Rapid he art rate, itching Tramadol Dizziness, 01/13/2018 Hallucinations, Itching Acetaminophen Hypertension 01/13/2018 Hives, itching Tramadol Hcl Dizziness, 01/13/2018 Hallucinations, Itching Hydrocodone-Acetaminophe Hives, Itching, 01/13/2018 n Hypertension documented as of this encounter (statuses as of 03/12/2020) Medications Medication Sig Dispensed Refills Start Date [...] as of this encounter (statuses as of 03/12/2020) Active Problems Problem Noted Date Bronchiectasis without complication 12/09/2019 Overview: Added automatically from request for aruna angela [id number] Abnormal CT scan of lung 11/02/2019 Granulomatous [...] as of this encounter (statuses as of 03/12/2020) Resolved Problems Problem Noted Date Resolved Date Interstitial cystitis 10/20/2019 documented as of this encounter (statuses as of 03/12/2020) Immunizations Name Administration Dates Next Due Influenza [...] this encounter Miscellaneous Notes Telephone Encounter - Eloise Horowitz - 03/12/2020 4:05 PM CSTInformation has been received and in Doctors in box. elephone Encounter - Nina Buckley - 03/07/2020 3:29 PM CSTChelsey with [facility] calling to see if the request they sent on 02/28/20 for a Reclast Infusion was received.Please call [phone] documented in this encounter Plan of Treatment Date Type Specialty Care Team Description 04/02/2020 Office Visit Infectious Disease Haley Palma MD [address] [place] [phone] 06/07/2020 Office Visit [place] [address] [place] [phone] 02/11/2021 Office Visit Endocrinology Diabetes & Kesired Kya vogel MD [address] [address] Health Maintenance Due Date Last Done Comments [...] Type / Group [place] [id number] 2012-Madeline [phone] [address] PPO/POS [place] - OUT OF t 87 [id number] [place] [address] documented as of this encounter
--- OUTSIDE RECORDS SUMMARY | 2020-03-21 07:52 | XMS REPORT | Summary of Care ---
:1940 Author Organization [facility] - [facility] Address [address] [place] [address] Care Team Providers Name Role Phone Breanne Campbell MD Primary Care Provider Reason for Visit Reason Comments Follow-up Encounter Details Date Type Department Care Team Description 02/20/2020 Office Visit [facility], July, [address] [place], [place] [phone] Mycobacterium avium Infectious Diseases- Haley Palma MD [address] [place] [phone] complex (Primary Dx) [facility] [address] [place] [phone] Allergies Active Allergy Reactions Severity [...] Added automatically from request for aruna angela [id number] Abnormal CT scan of lung 11/02/2019 Granulomatous [...] Comments Blood Pressure 153/87 02/20/2020 1:14 PM CORPORATE DIRECTOR Pulse 76 02/20/2020 1:14 PM CORPORATE DIRECTOR Temperature 36.6 C (97.9 F) 02/20/2020 1:13 PM CORPORATE DIRECTOR Respiratory Rate - - Oxygen Saturation - - Inhaled Oxygen Concentration - - Weight 48.4 kg (106 lb 11.2 oz) 02/20/2020 1:13 PM CORPORATE DIRECTOR Height 157.5 cm (5' 2") 02/20/2020 1:13 PM CORPORATE DIRECTOR Body Mass Index 19.52 02/20/2020 1:13 PM CORPORATE DIRECTOR documented in this encounter Progress Notes Haley [...] no changes in clinical status. Spoke to plate sensitizer Dr Pacheco and he toldme that she [...] cannot be given with rifampin. Per her plate sensitizer both Medications can be safely stopped. 2. 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 Both antibodies and galactomannan are negative, she likely does not have chronic aspergillosis. 3. Afib on AC - need to follow with plate sensitizer to adjust medications prior to starting MAC treatment 4. Other comorbidities: hypothyroidism, Parkinson Disease, pre DM PLAN -follow with plate sensitizer to stop propafenone, and xarelto -if anticoagulation [...] to ethambutol -all above was communicated to plate sensitizer over the phone Discussed with patient importance of compliance with medications Instructed patient to contact clinic or return if any new problems RTC in 6 weeks documented in this encounter Plan of Treatment Date Type Specialty Care Team Description 04/02/2020 Office Visit Infectious Disease Haley Palma MD [address] [place] [phone] 06/07/2020 Office Visit [place] [address] [place] [phone] 02/11/2021 Office Visit Endocrinology Diabetes & Kesired Kya vogel MD Metabolism [address] [place] [address] [phone] Health Maintenance Due Date Last Done Comments [...] Dates Phone Address Type / Group [facility] [id number] 2012-Madeline [phone] [address] PPO/POS [place] - OUT OF t 87 [id number] [place] [address] documented as of this encounter
--- OUTSIDE RECORDS SUMMARY | 2020-03-21 07:52 | XMS REPORT | Summary of Care ---
:1940 Author Organization [facility] Address [address] [place] [address] Care Team Providers Name Role Phone Breanne Campbell MD Primary Care Provider Reason for Visit Reason Comments Establish Care (Routine) Status Reason Specialty Diagnoses / Referred By Referred To Procedures Contact Contact New Request Infectious Diagnoses Pulmonary Mycobacterium avium complex (MAC) infection Cori Bates, Disease Procedures CONSULT/REFERRAL INFECTIOUS DISEASE DO [facility] [place] [address] Encounter Details Date Type Department Care Team Description 02/13/[address] [facility] Mainor Darling MD [address] [place] [address] [id number] [place] [address] Bronchiectasis without complication (Iram chuck Dx); Infectious Haley Palma MD [address] [place] [phone] Need for vaccination Diseases- [facility] [address] [place] [phone] Allergies Active Allergy Reactions Severity [...] automatically from request for aruna julio césar [id number] Abnormal CT scan of lung 11/02/2019 Granulomatous [...] CDT documented in this encounter Progress Notes Mary Scott - 02/13/2020 1:00 PM CDTGlenda identified by and name. Verbal and written consent has been obtained by patient to have an injection ; High Dose Influenza as ordered by the provider, Previous/Current Encounter Diagnosis: Bronchiectasis without complication [J47.9] The site was cleaned with an alcohol swab and given intramuscularly (IM). A band aid dressing was then applied to the injection site. The patient tolerated the procedure well . Patient provided with preferred teaching of verbal information on Anaphylaxis. Shows readiness to learn. VIS statement given to patient to read and They verbalize an understanding of teaching provided such as; Signs and Symptoms of Anaphylaxis (severe allergic reaction) are: Tingling, itching or metallic taste in mouth; hives; difficulty breathing; swelling and/or itching of mouth and/or throat; diarrhea, vomiting, cramps and stomach pain; paleness; loss of consciousness. IF YOU HAVE ANY OF THE SYMPTOMS ABOVE, ACT FAST!!! CALL 911 IMMEDIATELY IF YOU HAVE A PRESCRIBED EPI-PEN PLEASE USE IT NOW. Haley Palma MD - 02/13/2020 1:00 PM CDT Visit Type: ID New Outpatient Date of service: 02/13/2020 Referred by: Cori Bates DO [address] [place] [address] Chief Complaint: "I need an ID evaluation [...] born in the and never liver outside [place], no recent travel. Used to be a [...] file Gets together: Not on file Attends mu-ism service: Not on file Active member of [...] Hypertension Mother Skin Cancer Brother Hyperlipidemia Brother ME (myocardial infarction) Brother REVIEW OF SYSTEMS Constitutional: [...] QTc, will try to reach out to restaurant area manager 3. Other comorbidities: hypothyroidism, Parkinson Disease, pre [...] in 1 week documented in this encounter Miscellaneous Notes Addendum Note - Mary Scott - 02/13/2020 1:00 PM CDT Addended by: MARY SCOTT on: 02/13/2020 04:08 PM Modules accepted: Orders, SmartSet documented in this encounter Plan of Treatment Date Type Specialty Care Team Description 02/20/2020 Office Visit Infectious Disease Haley Palma MD [address] [place] [phone] 06/07/2020 Office Visit Pulmonary Disease Cori Bates, [address] [place] [phone] 02/11/2021 Office Visit Endocrinology Diabetes & Kesired Kya vogel MD [address] [phone] Name Type Priority Associated Diagnoses Date/Ti me ASPERGILLUS AB (ID) LAB Routine Bronchiectasis withou t 02/13/2020 3:14 PM complication CDT Misc. Sendout- Aspergillus LAB Routine Bronchiectasis without 02/13/2020 3:14 PM Antibodies by CF and ID complication CDT [id number] Misc. Sendout- Aspergillus LAB Routine Bronchiectasis without 02/13/2020 3:14 PM Galactomannan Antigen by complication CDT EIA, Serum [id number] IMMUNOGLOBULIN E, SERUM LAB Routine Bronchiectasis wi thout 02/13/2020 3:14 PM complication CDT Misc. Sendout- LAB Routine Bronchiectasis wit hout 02/13/2020 3:14 PM (1,3)-Gmru-K-Ingrue complication CDT (Fungitell) Name Type Priority Associated Diagnoses Order S chedule ASPERGILLUS AB (ID) LAB Routine Bronchiectasis withou t Expected: complication 02/13/2020, Expires: 2020 Misc. Sendout- Aspergillus LAB Routine Bronchiectasis without Expected: Antibodies by CF and ID complication 01/19, [id number] Expires: 2020 Misc. Sendout- Aspergillus LAB Routine Bronchiectasis without Expected: Galactomannan Antigen by complication , EIA, Serum [id number] Expires: 02/12/2021 IMMUNOGLOBULIN E, SERUM LAB Routine Bronchiectasis wi thout Expected: complication 02/13/2020, Expires: 2020 Misc. Sendout- LAB Routine Bronchiectasis wit hout Expected: (1,3)-Wikv-X-Nmjxit complication 02/13/20 20, (Fungitell) Expires: 2020 Health [...] Name Priority Date/Time Associated Diagnosis Comme nts FLU VACC ([id number]), Routine 02/13/2020 4:07 PM CDT Need for vaccination 6+ MONTHS, IM, QUAD documented in this encounter Results Not on filedocumented in this encounter Visit Diagnoses Diagnosis Bronchiectasis without complication - Pr imary Bronchiectasis without acute exacerbatio n Need for vaccination Need for prophylactic vaccination and in oculation against unspecified single disease documented in this encounter Insurance Payer Benefit Plan Subscriber ID Effective Dates Phone Address Type / Group [employer] [place] [id number] 2012-Madeline [phone] [address] PPO/POS [place] - OUT OF 87 [id number] [place] [address] documented as of this encounter
--- OUTSIDE RECORDS SUMMARY | 2020-03-21 07:52 | XMS REPORT | Summary of Care ---
:1940 Author Organization [facility] Address [address] [place] [address] Care Team Providers Name Role Phone Breanne Campbell MD Primary Care Provider Reason for Visit Reason Comments Notification Encounter Details Date Type Department Care Team Description 03/13/2020 Telephone [facility] Family Medicine Breanne Ramirez MD Notification - [address] [place] [address] [place] [address] [phone] Allergies Active Allergy Reactions Severity Noted Date Comments Codeine Nausea and/or Vomiting 01/13/2018 Pentazocine Lactate Hives 01/13/2018 Rapid he art rate, itching Tramadol Dizziness, 01/13/2018 Hallucinations, Itching Acetaminophen Hypertension 01/13/2018 Hives, itching Tramadol Hcl Dizziness, 01/13/2018 Hallucinations, Itching Hydrocodone-Acetaminophe Hives, Itching, 01/13/2018 n Hypertension documented as of this encounter (statuses as of 03/13/2020) Medications Medication Sig Dispensed Refills Start Date [...] as of this encounter (statuses as of 03/13/2020) Active Problems Problem Noted Date Bronchiectasis without complication 12/09/2019 Overview: Added automatically from request for aruna angela [id number] Abnormal CT scan of lung 11/02/2019 Granulomatous [...] as of this encounter (statuses as of 03/13/2020) Resolved Problems Problem Noted Date Resolved Date Interstitial cystitis 10/20/2019 documented as of this encounter (statuses as of 03/13/2020) Immunizations Name Administration Dates Next Due Influenza Virus Vaccine 02/03/2018 Influenza Virus Vaccine Quad .5 mL IM 6+ MO 02/13/2020 documented as of this encounter Social History Tobacco Use Types Packs/Day Years Used Date Never Smoker Smokeless Tobacco: Never Used Alcohol Use Drinks/Week oz/Week Comments No Sex Assigned at Date Recorded Not on file documented as of this encounter Last Filed Vital Signs Not on filedocumented in this encounter Miscellaneous Notes Telephone Encounter - Megan Rudd LVN - 03/13/2020 3:06 PM CSTReturned call to [facility] to advise I am faxing back Dr Campbell's reply to thelab results. Labs faxed back elephone Encounter - Clarissa Snow - 03/13/2020 2:38 PM CSTRep is checking status of consult request she faxed over. Please advise. documented in this encounter Plan of Treatment Date Type Specialty Care Team Description 04/02/2020 Office Visit Infectious Disease Haley Palma MD [address] [place] [phone] 06/07/2020 Office Visit [place] [address] [place] [phone] 02/11/2021 Office Visit Endocrinology Diabetes & Kesired Kya vogel MD Metabolism [address] [place] [address] Health Maintenance Due Date Last Done [...] Phone Address Type / Group BCBS OF [facility] [id number] 2012-Madeline [phone] [address] PPO/POS [place] - OUT OF t 87 [id number] [place] [address] documented as of this encounter
--- OUTSIDE RECORDS SUMMARY | 2020-03-21 07:52 | XMS REPORT | Summary of Care ---
:1940 Author Organization [facility] Address [address] [place] [address] Care Team Providers Name Role Phone Breanne Campbell MD Primary Care Provider Reason for Visit Reason Comments Follow-up Encounter Details Date Type Department Care Team Description 02/20/2020 Office Visit [facility], July, [address] [place], [place] [phone] Hyperlipidemia, unspecified hyperlipidem ia type (Primary Dx); Infectious Jill Tejeda MD [address] [place] [phone] Mycobacterium avium complex Diseases- [facility] [address] [place] [phone] Allergies Active Allergy Reactions Severity Noted Date Comments Codeine Nausea and/or Vomiting 01/13/2018 Pentazocine Lactate Hives 01/13/2018 Rapid he art rate, itching Tramadol Dizziness, 01/13/2018 Hallucinations, Itching Acetaminophen Hypertension 01/13/2018 Hives, itching Tramadol Hcl Dizziness, 01/13/2018 Hallucinations, Itching Hydrocodone-Acetaminophe Hives, Itching, 01/13/2018 n Hypertension documented as of this encounter (statuses as of 03/01/2020) Medications Medication Sig Dispensed Refills Start Date End Date Status levothyroxine 50 Take 50 mcg by 0 01/15/2020 Active mcg tablet mouth every morning. propafenone 150 mg Take 150 mg by 0 12/09/2019 Active tablet mouth every 8 (eight) hours. XARELTO 20 mg 0 02/01/2020 Activ e tablet RYTARY 61.25-245 mg Take 1 capsule 0 12/09/2019 Active CpSR by mouth 3 (three) times daily. albuterol 2.5 mg /3 USE IN 0 12/19/2019 Active mL (0.083 %) NEBULIZER 1 nebulizer solution VIAL TWICE A DAY pravastatin 10 mg Take 1 tablet 30 tablet 1 03/01/2020 0 Active tabletIndications: by mouth at 21 Mycobacterium avium bedtime for 60 complex, days. Please Hyperlipidemia, stop unspecified simvastatin. hyperlipidemia type simvastatin 10 mg Take 10 mg by 0 01/23/2020 0 Discontinued tablet mouth at 20 (Side effe cts) bedtime. documented as of this encounter (statuses as of 03/01/2020) Active Problems Problem Noted Date Bronchiectasis without complication 12/09/2019 Overview: Added automatically from request for aruna julio césar [id number] Abnormal CT scan of lung 11/02/2019 Granulomatous [...] as of this encounter (statuses as of 03/01/2020) Resolved Problems Problem Noted Date Resolved Date Interstitial cystitis 10/20/2019 documented as of this encounter (statuses as of 03/01/2020) Immunizations Name Administration Dates Next Due Influenza [...] Comments Blood Pressure 153/87 02/20/2020 1:14 PM SEISMIC PROSPECTING SUPERVISOR Pulse 76 02/20/2020 1:14 PM SEISMIC PROSPECTING SUPERVISOR Temperature 36.6 C (97.9 F) 02/20/2020 1:13 PM SEISMIC PROSPECTING SUPERVISOR Respiratory Rate - - Oxygen Saturation - - Inhaled Oxygen Concentration - - Weight 48.4 kg (106 lb 11.2 oz) 02/20/2020 1:13 PM SEISMIC PROSPECTING SUPERVISOR Height 157.5 cm (5' 2") 02/20/2020 1:13 PM SEISMIC PROSPECTING SUPERVISOR Body Mass Index 19.52 02/20/2020 1:13 PM SEISMIC PROSPECTING SUPERVISOR documented in this encounter Progress Notes Sudha Villalba DO - 02/20/2020 1:30 PM CSTI personally examined the patient on 02/20/[address] Teejda's note as written. I actively participated in the decision making process. Please see the fellow's note for additional details. Aspergillus labs have returned negative. Given this, chronic aspergillosis is unlikely. 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 I spoke to micro last week who will send NTM out for susceptibility testing. Dr. Tejeda has also spoken to patient's OSH end touching machine operator who stated he would stop the patient's antiarrythmic/anticoagulant given good response. This has not yet been communicated with the patient. She will follow up with her end touching machine operator and call the ID clinic after that follow up to alert us of her medication changes. Susceptibilities take about a month or longer to come back. Additionally, given patient needs to follow up with OS end touching machine operator re: medications that have significant interactions with MAC therapy, we will wait to start therapy at this time. Patient is in agreement. We will have her RTC in 6 weeks with plan to initiate MAC therapy at that time. She will follow up sooner if new issues arise. Sudha Villalba DO Infectious Diseases Faculty ill Tejeda MD - 02/20/2020 1:30 PM CST Visit [...] no changes in clinical status. Spoke to end touching machine operator Dr Pacehco and he toldme that she has been [...] cannot be given with rifampin. Per her end touching machine operator both Medications can be safely stopped. 2. 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 Both antibodies and galactomannan are negative, she likely does not have chronic aspergillosis. 3. Afib on AC - need to follow with end touching machine operator to adjust medications prior to starting MAC treatment 4. Other comorbidities: hypothyroidism, Parkinson Disease, pre DM PLAN -follow with end touching machine operator to stop propafenone, and xarelto -if anticoagulation [...] to ethambutol -all above was communicated to end touching machine operator over the phone Discussed with patient importance of compliance with medications Instructed patient to contact clinic or return if any new problems RTC in 6 weeks documented in this encounter Miscellaneous Notes Addendum Note - Jill Tejeda MD - 02/20/2020 1:30 PM SEISMIC PROSPECTING SUPERVISOR Addended by: JILL TEJEDA on: 03/01/2020 11:27 AM Modules accepted: Orders documented in this encounter Plan of Treatment Date Type Specialty Care Team Description 04/02/2020 Office Visit Infectious Disease Jill Tejeda MD [address] [place] [phone] 06/07/2020 Office Visit Pulmonary Disease Cori Bates, DO [address] [place] [phone] 02/11/2021 Office Visit Endocrinology Diabetes & Kya Gould MD [address] [address] Health Maintenance Due Date Last [...] filedocumented in this encounter Visit Diagnoses Diagnosis Hyperlipidemia, unspecified hyperlipidem ia type - Primary Mycobacterium avium complex Other specified mycobacterial diseases documented in this encounter Insurance Payer Benefit Plan Subscriber ID Effective Dates Phone Address Type / Group [place]BS [place] [id number] 2012-Madeline [phone] [address] PPO/POS [place] - OUT OF t 87 [id number] [place] [address] documented as of this encounter
--- OUTSIDE RECORDS SUMMARY | 2020-03-21 07:53 | XMS REPORT | Summary of Care ---
:1940 Author Organization [facility] Address [address] [place] [address] Care Team Providers Name Role Phone Breanne Campbell MD Primary Care Provider Reason for Visit Reason Comments Medication Problem VERIFY WHAT CHOLETEROL MED S HE IS TAKING Encounter Details Date Type Department Care Team Description 03/13/2020 Refill [facility] Family Breanne Campbell M edication Problem Medicine - [facility] MAX (VERIFY WHAT CHOLETEROL [address] [facility] [address] [place] [address] [place] [address] MED SHE IS TAKING) [place] [address] [place], [place] [phone] Allergies Active Allergy Reactions Severity Noted [...] Added automatically from request for aruna angela [id number] Abnormal CT scan of lung 11/02/2019 Granulomatous [...] Encounter - Megan Rudd LVN - 03/13/2020 3:09 PM CSTPt notified that the labs were found and Dr Campbell has stated that her creatinine is good so the infusion is okay to be done and the reply was also faxed back to [facility] and I called and left the nurse Tracy a message stating the same. elephone Encounter - Megan Rudd LVN - 03/13/2020 2:19 PM CSTPt verified she is only taking the Pravastatin. She is also asking if Dr Campbell has received and rev iewed the labs sent from Dr Amador, she said her kidney function was reduced and that determines ifshe can have her Reclast infusion. Please advise. documented in this encounter Plan of Treatment Date Type Specialty Care Team Description 04/02/2020 Office Visit Infectious Disease Haley Palma MD [address] [place], [place] [address] [place] [phone] 06/07/2020 Office Visit Pulmonary Disease Cori Bates, DO [address] [place] [phone] 02/11/2021 Office Visit Endocrinology Diabetes & Kesired Kya vogel MD Metabolism [address] [place] [address] Health Maintenance Due Date Last Done Comments DTaP,Tdap,and Td Vaccines (1 - Tdap) 1961 Zoster Recombinant Vaccine (SHINGRIX) (1 1992 of 2) Medicare Wellness Visit 2007 Osteoporosis Screening 2007 PNEUMOCOCCAL VACCINES 65+ (1 of - 2007 PPSV23) Depression Screening 12/27/2020 12/28/2019 INFLUENZA VACCINE Completed 02/13/2020, 02/03/2018 documented as of this encounter Results Not on filedocumented in this encounter Insurance Payer Benefit Plan Subscriber ID Effective Dates Phone Address Type / Group [employer] [place] [id number] 2012-Madeline [phone] [address] PPO/POS [place] - OUT OF t 87 [id number] [place] [address] documented as of this encounter
[2020-03-21] MEDS ORDERED: Zoledronic Acid/Mannitol/Water 5 MG/100 ML INFUS.BOT IV ONE (08:00)
[2020-03-21 08:21] VITALS: BP 144/68; TEMP 97.4; O2SAT 100
[2020-03-21 08:22] VITALS: BMI 20.1
== END 2020-03-21 08:44 | disposition home or self-care (01) ==
LOC: DS 07:44
PROVIDERS: ATTEND Obstetrics & Gynecology
DX: M81.0 Age-related osteoporosis without current pathological fracture (principal)
CPT/HCPCS: 96365; J3489

== ENCOUNTER 2021-07-12 11:27 | Observation (INO) | payer OTHER ==
--- OUTSIDE RECORDS SUMMARY | 2021-07-12 11:33 | XMS REPORT | Continuity of Care Document ---
:1940 Author Organization [facility] t Address [address] [place] [address] Care Team Providers Name Role Phone Fernanda DIOP Primary Care Physician Unavailable ERWIN Attending Clinician Unavailable SUN Attending Clinician Unavailable Chung MIRZA Attending Clinician Unavailable Sarah CUNNINGHAM Attending Clinician Unavailable Doctor Unassigned, Name Attending Clinician Unavailable Fernanda DIOP Attending Clinician Unavailable MICKEY Attending Clinician Unavailable Sun WEISS Attending Clinician Fernanda Diop MD Attending Clinician Louie MAX Attending Clinician Payers Payer Name Policy Type Policy Number Effective Date Expiration Date Tesfaye SERRATO/[facility] [id number] 2021 MEDICARE GOLD 00:00:00 PPO CSNP [employer] [place] - [id number] 2012 2021 OUT OF STATE 00:00:00 00:00:00 Problems Condition Condition Condition Status Onset Resolution Last Treating Co mments Source Name Details Category Date Date Treatment Clinician Date Labile Labile Disease Active Univers blood blood 09 ity of pressure pressure 00:00: [place] due to due to 00 Medical Parkinson' Parkinson' Br anch s s Macrocytos Macrocytos Disease Active U nivers is without is without 12-26 it y of anemia anemia 00:00: [place] 00 Medical Branch Leukopenia Leukopenia Disease Active U nivers , , 12-26 ity of unspecifie [place] 00 Medical Branch Microscopi Microscopi Disease Active U nivers c c 9-08 it[place] of hematuria hematuria [place] Thrombocyt Thrombocyt Disease Active U nivers openia openia 9-08 ity of 00:00: [place] 00 Medical Branch 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 Added automatic ally from request for surgery [id number] Abnormal Abnormal Disease Active Unive rs CT scan of CT scan of 7-15 it y of lung lung 00:00: [place] [facility] Prediabete Prediabete Disease Active U nivers s s 7-15 ity of 00:00: [place] [facility] Granulomat Granulomat Disease Active U nivers ous lung ous lung 7-15 ity of disease disease 00:00: [place] [facility] SENT BY Diagnosis Active 2018-042019-04-18 Me ten DIAMOND 19:30:00 l POTASSIUM SENT BY 00:00: Yadiel DIAMOND 00 POTASSIUM Active 04/18/2019 [facility] Danie UNK Diagnosis Active 2018-042019-04-18 Mem oria 2-16 14:53:00 l UNK 00:00: [place] 00 Active 04/04/2019 [facility] Danie CYSTRO Diagnosis Active 2018-042019-04-22 Mem oria 2-16 07:11:00 l CYSTRO 00:00: [place] 00 Active 04/[facility]2019 [facility] - Diagnosis Active 2018-042019-04-05 Me moria RETENTION 2-02 11:02:00 l OF URINE, R33.9 - 00:01: Herm josh UNSPECIFIE RETENTION 00 R OF URINE, UNSPECIFIE R Active 03/21/2019 [facility] [place] [facility] Pulmonary Disease Active Overview: Univers nodule nodule 3-10 Formattin ity of 00:00: g of this [place] 00 note Medical might be Branch different from the original. Per CT 05/2018 Bronchiect Bronchiect Disease Active Overview : Univers asis asis 3-10 Formattin ity of 00:00: g of this 00 note Medical might be Branch different from the original. Per CT 05/2018 B12 B12 Disease Active Overview: Univer s deficiency deficiency 1-21 Formattin ity of 00:00: g of this 00 note Medical might be Branch different from the original. B12 <400 Right Right Disease Active Univers upper upper 1-08 ity of quadrant quadrant 00:00: [place] abdominal abdominal 00 Medi ramone pain pain Branch Primary Primary Disease Active Univers hypothyroi hypothyroi 1-02 it y of dism dism 00:00: [place] 00 Medical Branch Blood Blood Disease Active Univers pressure pressure 1-02 ity of elevated elevated 00:00: [place] without without 00 Medical history of history of Br anch HTN HTN G20.0 Diagnosis Active 2016-12-30 Mem oria 12-19 10:25:00 l G20.0 00:00: [place] 00 Active 12/19/2016 [facility] Atrial Problem Resolve 2021-03-07 Raoul isabell fibrillati d 02:14:56 l on Atrial [place] (disorder) fibrillati on (disorder) Resolved Problem 03/07/2021 [facility] Cystitis Problem Resolve 2021-03-07 Me moria (disorder) d 02:14:56 l Cystitis Hi n (disorder) Resolved Problem 03/07/2021 [facility] Sarah Gaona Disease of Problem Resolve 2021-03-07 Memoria thyroid d 02:14:56 l gland Disease [place] (disorder) of thyroid gland (disorder) Resolved Problem 03/07/2021 HYPOTHYRO IDISM [facility], Sarah Gaona Hyperchole Problem Resolve 2021-03-07 Memoria sterolemia d 02:14:56 l (disorder) Hi n Hyperchole sterolemia (disorder) Resolved Problem 03/07/2021 [facility], Sarah Gaona Parkinson' Problem Resolve 2021-03-07 Memoria s disease d 02:14:56 l (disorder) Hi baez Parkinson' s disease (disorder) Resolved Problem 03/07/2021 [facility], Sarah Gaona Spinal Problem Resolve 2021-03-07 Raoul isabell nerve root d 02:14:56 l finding Spinal Danie (finding) nerve root finding (finding) Resolved Problem 03/07/2021 [place] nerve entrapment surgery (sacral nerve knotted and release done) [facility], Sarah Gaona Arthritis Arthritis Disease Active Uni vers ity of [facility] Allergic Allergic Disease Active Unive rs rhinitis rhinitis ity of [facility] Fibromyalg Fibromyalg Disease Active U nivers ia ia ity [facility] Hyperlipid Hyperlipid Disease Active U nivers emia emia ity [facility] Hiatal Hiatal Disease Active Univers hernia hernia ity of [facility] Osteopenia Osteopenia Disease Active U nivers ity of [facility] History of Past Illness Condition Condition Condition Status Onset Resolution Last Treating Co mments Source Name Details Category Date Date Treatment Clinician Date Hypokalemi Problem 2018-042019-04-20 2019-04-20 Memoria a 23:16:45 23:16:45 l 18:00: [place] Hypokalemi 00 a 04/18/2019 04/20/2019 [place] Allergies, Adverse Reactions, Alerts Allergy Allergy Status Severity Reaction(s) Onset Inactive Treating Comm ents Source Name Type Date Date Clinician Codeine Propensi Active Nausea Univers ty to and/or 01-13 ity of adverse Vomiting 00:00: [place] reaction 00 Medical s Branch Pentazoc Propensi Active Hives Rapid Univer s ine ty to 01-13 heart ity of Lactate adverse 00:00: rate, [place] reaction 00 itching Medical s Branch Tramadol Propensi Active Itching Unive rs ty to 01-13 ity of adverse 00:00: [place] reaction 00 Medical s Branch Acetamin Propensi Active Hypertension 2018 Hives, Univers ophen ty to 01-13 itching ity of adverse 00:00: [place] reaction 00 Medical s Branch Tramadol Propensi Active Itching Unive rs Hcl ty to 01-13 ity of adverse 00:00: [place] reaction 00 Medical s Branch Hydrocod Propensi Active Hypertension 2018-0 Univers one-Acet ty to 01-13 ity of aminophe adverse 00:00: [place] n reaction 00 Medical s Branch CODEINE DRUG Active N/V 2017-0 Univers INGREDI 01-13 ity of 00:00: [place] 00 Medical Branch PENTAZOC DRUG Active Hives 2017-0 Univers INE INGREDI 01-13 ity of LACTATE 00:00: [place] 00 Medical Branch TRAMADOL DRUG Active Dizziness 2017-0 Unive rs INGREDI 01-13 ity of 00:00: [place] 00 Medical Branch ACETAMIN DRUG Active HYPERTENSION 0 Un ezequiel OPHEN INGREDI 01-13 ity of 00:00: [place] 00 Medical Branch TRAMADOL DRUG Active Dizziness 2017-0 Unive rs HCL INGREDI 01-13 ity of 00:00: [place] 00 Medical Branch HYDROCOD DRUG Active Hives 2017-0 Univers ONE-ACET 01-13 ity of AMINOPHE 00:00: [place] N 00 Medical Branch codeine codeine Active Memoria l [place] acetamin acetamin Active Memori a ophen ophen l Danie aspirin aspirin Active Memoria l [place] Neuronti Neuronti Active Memori a n n l [place] Talwin Talwin Active Memoria l [place] Vicodin Vicodin Active Memoria l [place] Darvocet Darvocet Active Memori a A500 A500 l Danie traMADol traMADol Active Memori a l [place] Social History Social Habit Start Date Stop Date Quantity Comments Source Exposure to Not sure [facility] [place] [facility]-CoV-2 [facility] (event) Branch Alcohol intake 2021-06-26 2021-06-26 Current [facility] 00:00:00 00:00:00 non-drinker of [facility] alcohol Branch (finding) Tobacco use and 2018-01-13 2018-01-13 Never used Universit y of exposure 00:00:00 00:00:00 [facility] Sex [birth year] Universit y of 00:00:00 00:00:00 [facility] Smoking Status Start Date Stop Date Source Never smoker [facility] Medications Ordered Filled Start Stop Current Ordering Indication Dosage Frequency Signature Comments Components Source Medication Medication Date Date Medication? Clinician (SIG) Name Name midodrine Yes 20mg Take 20 mg Un ezequiel 10 mg 3-08 by mouth 3 ity of tablet 10:40: (three) [place] 39 times Medical daily. Branch pravastatin 2021-0 Yes [id number] 10mg Take 1 Univers 10 mg 3-08 tablet by ity of tablet 00:00: mouth at [place] 00 bedtime. Medical Branch PANTOPRAZOL 2021-0 Yes [id number] TAKE 1 Univers E 40 mg EC 1-31 TABLET BY ity of tablet 00:00: MOUTH [place] 00 EVERY DAY Medical Branch PANTOPRAZOL 2021-0 Yes [id number] TAKE 1 Univers E 40 mg EC 1-31 TABLET BY ity of tablet 00:00: MOUTH [place] 00 EVERY DAY Medical Branch PANTOPRAZOL 2021-0 Yes [id number] TAKE 1 Univers E 40 mg EC 1-31 TABLET BY ity of tablet 00:00: MOUTH [place] 00 EVERY DAY Medical Branch PANTOPRAZOL 2021-0 Yes [id number] TAKE 1 Univers E 40 mg EC 1-31 TABLET BY ity of tablet 00:00: MOUTH [place] 00 EVERY DAY Medical Branch ETHAMBUTOL 2021-0 Yes [id number] 1200mg TAKE 3 Univers 400 mg 1-28 TABLETS BY ity of tablet 00:00: MOUTH [place] 00 EVERY Medical THURSDAY, Branch THURSDAY, AND THURSDAY IN THE MORNING AT 0600. AZITHROMYCI 2021-0 Yes [id number] 500mg TAKE 1 Univers N 500 mg 1-28 TABLET BY ity of tablet 00:00: MOUTH [place] 00 EVERY Medical THURSDAY, Branch THURSDAY, AND THURSDAY IN THE MORNING AT 0600. rifAMPin 2021-0 Yes [id number] 600mg Take 2 U nivers 300 mg 1-28 capsules ity of capsule 00:00: by mouth [place] 00 every Medical Thursday, Branch Thursday, and Thursday in the morning at 0600. ETHAMBUTOL 2021-0 Yes [id number] 1200mg TAKE 3 Univers 400 mg 1-28 TABLETS BY ity of tablet 00:00: MOUTH [place] 00 EVERY Medical THURSDAY, Branch THURSDAY, AND THURSDAY IN THE MORNING AT 0600. AZITHROMYCI 2021-0 Yes [id number] 500mg TAKE 1 Univers N 500 mg 1-28 TABLET BY ity of tablet 00:00: MOUTH [place] 00 EVERY Medical THURSDAY, Branch THURSDAY, AND MARIAH IN THE MORNING AT 0600. rifAMPin 2022-0 Yes [id number] 600mg Take 2 U nivers 300 mg 1-28 capsules ity of capsule 00:00: by mouth [place] 00 every Medical Thursday, Branch Thursday, and Thursday in the morning at 0600. ETHAMBUTOL 2022-0 Yes [id number] 1200mg TAKE 3 Univers 400 mg 1-28 TABLETS BY ity of tablet 00:00: MOUTH [place] 00 EVERY Medical THURSDAY, Branch THURSDAY, AND THURSDAY IN THE MORNING AT 0600. AZITHROMYCI 2022-0 Yes [id number] 500mg TAKE 1 Univers N 500 mg 1-28 TABLET BY ity of tablet 00:00: MOUTH [place] 00 EVERY Medical THURSDAY, Branch THURSDAY, AND THURSDAY IN THE MORNING AT 0600. rifAMPin 2022-0 Yes [id number] 600mg Take 2 U nivers 300 mg 1-28 capsules ity of capsule 00:00: by mouth [place] 00 every Medical Thursday, Branch Thursday, and Thursday in the morning at 0600. ETHAMBUTOL 2022-0 Yes [id number] 1200mg TAKE 3 Univers 400 mg 1-28 TABLETS BY ity of tablet 00:00: MOUTH [place] 00 EVERY Medical THURSDAY, Branch THURSDAY, AND THURSDAY IN THE MORNING AT 0600. AZITHROMYCI 2022-0 Yes [id number] 500mg TAKE 1 Univers N 500 mg 1-28 TABLET BY ity of tablet 00:00: MOUTH [place] 00 EVERY Medical THURSDAY, Branch THURSDAY, AND THURSDAY IN THE MORNING AT 0600. rifAMPin 2022-0 Yes [id number] 600mg Take 2 U nivers 300 mg 1-28 capsules ity of capsule 00:00: by mouth [place] 00 every Medical Thursday, Branch Thursday, and Thursday in the morning at 0600. ETHAMBUTOL 2022-0 Yes [id number] 1200mg TAKE 3 Univers 400 mg 1-28 TABLETS BY ity of tablet 00:00: MOUTH [place] 00 EVERY Medical THURSDAY, Branch THURSDAY, AND THURSDAY IN THE MORNING AT 0600. AZITHROMYCI 2022-0 Yes [id number] 500mg TAKE 1 Univers N 500 mg 1-28 TABLET BY ity of tablet 00:00: MOUTH [place] 00 EVERY Medical THURSDAY, Thursday, AND THURSDAY IN THE MORNING AT 0600. rifAMPin 2021-0 Yes [id number] 600mg Take 2 U nivers 300 mg 1-28 capsules ity of capsule 00:00: by mouth [place] 00 every Medical Thursday, Thursday, and Thursday in the morning at 0600. ethambutoL 2021-0 Yes [id number] 1200mg Take 3 Univers 400 mg 1-26 tablets by ity of tablet 00:00: mouth [place] 00 every Medical Thursday, Thursday, and Thursday in the morning at 0600. rifAMPin 2021-0 Yes [id number] 600mg Take 2 U nivers 300 mg 1-26 capsules ity of capsule 00:00: by mouth [place] 00 every Medical Thursday, Thursday, and Thursday in the morning at 0600. azithromyci 2021-0 Yes [id number] 500mg Take 1 Univers n 500 mg -26 tablet by ity of tablet 00:00: mouth [place] 00 every Medical Thursday, Thursday, and Thursday in the morning at 0600. ethambutoL 2021-0 2021- No [id number] 1200mg Take 3 Univers 400 mg 1-26 -27 tablets by ity of tablet 00:00: 00:00 mouth [place] 00 :00 every Medical Thursday, Thursday, and Thursday in the morning at 0600. rifAMPin 2021-0 2022- No [id number] 600mg Take 2 Univers 300 mg 1-26 -27 capsules ity of capsule 00:00: 00:00 by mouth [place] 00 :00 every Medical Thursday, Thursday, and Thursday in the morning at 0600. azithromyci 2021-0 2- No [id number] 500mg Take 1 Univers n 500 mg 1-26 -27 tablet by ity o f tablet 00:00: 00:00 mouth [place] 00 :00 every Medical Thursday, Thursday, and Thursday in the morning at 0600. midodrine 0 Yes 10mg Take 10 mg Un ezequiel 10 mg 1-25 by mouth 3 ity of tablet 13:07: (three) [place] 57 times Medical daily. Branch midodrine 2021-0 Yes 10mg Take 10 mg Un ezequiel 10 mg 1-25 by mouth 3 ity of tablet 13:07: (three) [place] 57 times Medical daily. Branch midodrine 0 Yes 10mg Take 10 mg Un ezequiel 10 mg 1-25 by mouth 3 ity of tablet 13:07: (three) [place] 57 times Medical daily. Branch midodrine 0 Yes 10mg Take 10 mg Un ezequiel 10 mg 1-25 by mouth 3 ity of tablet 13:07: (three) [place] 57 times Medical daily. Branch midodrine 0 Yes 10mg Take 10 mg Un ezequiel 10 mg 1-25 by mouth 3 ity of tablet 13:07: (three) [place] 57 times Medical daily. Branch midodrine 0 Yes 10mg Take 10 mg Un ezequiel 10 mg 1-25 by mouth 3 ity of tablet 13:07: (three) [place] 57 times Medical daily. Branch PANTOPRAZOL 0 Yes [id number] TAKE 1 Univers E 40 mg EC 1-06 TABLET BY ity of tablet 00:00: MOUTH [place] 00 EVERY DAY Medical Branch PANTOPRAZOL 2021-0 Yes [id number] TAKE 1 Univers E 40 mg EC 1-06 TABLET BY ity of tablet 00:00: [facility] 00 EVERY DAY Medical Branch PANTOPRAZOL 2021-0 Yes [id number] TAKE 1 Univers E 40 mg EC 1-06 TABLET BY ity of tablet 00:00: [facility] 00 EVERY DAY Medical Branch PANTOPRAZOL 2021-0 2021- No [id number] TAKE 1 Univers E 40 mg EC 1-06 - TABLET BY ity of tablet 00:00: 00:00 MOUTH [place] 00 :00 EVERY DAY Medical Branch CARBIDOPA-L 2020-1 Yes [id number] TAKE 1 Univers EVODOPA-ENT 2-06 TABLET BY ity of ACAPONE 00:00: MOUTH [place] 25-100-200 00 THREE Medical mg tablet TIMES A Branch DAY CARBIDOPA-L 2020-1 Yes [id number] TAKE 1 Univers EVODOPA-ENT 2-06 TABLET BY ity of ACAPONE 00:00: MOUTH [place] 25-100-200 00 THREE Medical mg tablet TIMES A Branch DAY CARBIDOPA-L 2020-1 Yes [id number] TAKE 1 Univers EVODOPA-ENT 2-06 TABLET BY ity of ACAPONE 00:00: MOUTH [place] 25-100-200 00 THREE Medical mg tablet TIMES A Branch DAY CARBIDOPA-L 2020-04 Yes [id number] TAKE 1 Univers EVODOPA-ENT 2-06 TABLET BY ity of ACAPONE 00:00: MOUTH 25-100-200 00 THREE Medical mg tablet TIMES A DAY CARBIDOPA-L 2020-04 Yes [id number] TAKE 1 Univers EVODOPA-ENT 2-06 TABLET BY ity of ACAPONE 00:00: MOUTH [id number] 00 THREE Medical mg tablet TIMES A Branch DAY CARBIDOPA-L 2020-04 Yes [id number] TAKE 1 Univers EVODOPA-ENT 2-06 TABLET BY ity of ACAPONE 00:00: MOUTH 25-100-200 00 THREE Medical mg tablet TIMES A DAY CARBIDOPA-L 2020-04 Yes [id number] TAKE 1 Univers EVODOPA-ENT 2-06 TABLET BY ity of ACAPONE 00:00: MOUTH [id number] 00 THREE Medical mg tablet TIMES A Branch DAY levothyroxi 2020-04 Yes 50ug Take 1 Univ ers ne 50 mcg 0-25 tablet by ity o f tablet 00:00: mouth [place] 00 every Medical morning. Branch levothyroxi 2020-04 Yes 50ug Take 1 Univ ers ne 50 mcg 0-25 tablet by ity o f tablet 00:00: mouth [place] 00 every Medical morning. Branch levothyroxi 2020-04 Yes 50ug Take 1 Univ ers ne 50 mcg 0-25 tablet by ity o f tablet 00:00: mouth [place] 00 every Medical morning. Branch levothyroxi 2020-04 Yes 50ug Take 1 Univ ers ne 50 mcg 0-25 tablet by ity o f tablet 00:00: mouth [place] 00 every Medical morning. Branch levothyroxi 2020-04 Yes 50ug Take 1 Univ ers ne 50 mcg 0-25 tablet by ity o f tablet 00:00: mouth [place] 00 every Medical morning. Branch levothyroxi 2020-04 Yes 50ug Take 1 Univ ers ne 50 mcg 0-25 tablet by ity o f tablet 00:00: mouth [place] 00 every Medical morning. Branch levothyroxi 2020-04 Yes 50ug Take 1 Univ ers ne 50 mcg 0-25 tablet by ity o f tablet 00:00: mouth [place] 00 every Medical morning. Branch azithromyci 2020-04- No [id number] 500mg Take 1 Univers n 500 mg 05-14 tablet by ity o f tablet 00:00: 00:00 mouth [place] 00 :00 every Medical Thursday, Branch Thursday, and Thursday in the morning at 0600. ethambutoL 2020-04- No [id number] 1200mg Take 3 Univers 400 mg 05-14 tablets by ity of tablet 00:00: 00:00 mouth [place] 00 :00 every Medical Thursday, Branch Thursday, and Thursday in the morning at 0600. rifAMPin 2020-04- No [id number] 600mg Take 2 Univers 300 mg 05-14 capsules ity of capsule 00:00: 00:00 by mouth [place] 00 :00 every Medical Thursday, Branch Thursday, and Thursday in the morning at 0600. pravastatin Yes [id number] 10mg Take 1 Univers 10 mg 9-09 tablet by ity of tablet 00:00: mouth at [place] [address] bedtime. [facility] pravastatin 0 Yes [id number] 10mg Take 1 Univers 10 mg 9-09 tablet by ity of tablet 00:00: mouth at [place] [address] bedtime. [facility] pravastatin 0 Yes [id number] 10mg Take 1 Univers 10 mg 9-09 tablet by ity of tablet 00:00: mouth at [place] [address] bedtime. [facility] pravastatin Yes [id number] 10mg Take 1 Univers 10 mg 9-09 tablet by ity of tablet 00:00: mouth at [place] [address] bedtime. [facility] pravastatin 0 Yes [id number] 10mg Take 1 Univers 10 mg 9-09 tablet by ity of tablet 00:00: mouth at [place] [address] bedtime. [facility] pravastatin 0 Yes [id number] 10mg Take 1 Univers 10 mg 9-09 tablet by ity of tablet 00:00: mouth at [place] [address] bedtime. [facility] Azithromyci 2020-0 Yes 0 Memori a n 5-17 Refill(s) l 14:02: Rifampin 2020-0 Yes 0 Memoria 5-17 Refill(s) l 14:02: ethambutol 2021-0 Yes 400 mg = 1 M emoria 400 mg oral 5-17 tab, PO, l tablet 14:01: Daily, 0 Refill(s) dexamethaso No Route: IV, Memoria ne (ANES) 04-22 Drug form: l 16:27: INJ, ONCE, Stop date: 04/22/19 10:27:00 [facility] glycopyrrol 2019-0 No Route: IV, Memoria ate (ANES) 04-22 Drug form: l 16:22: INJ, ONCE, Stop date: 04/22/19 10:22:00 [facility] ondansetron No Route: IV, Memoria (ANES) 04-22 Drug form: l 16:16: INJ, ONCE, Stop date: 04/22/19 10:16:00 [facility] fentaNYL 2019-0 No Route: IV, Mem oria (ANES) 04-22 Drug form: l 16:11: INJ, ONCE, Stop date: 04/22/19 10:11:00 [facility] propofol 2019-0 No Route: IV, Mem oria (ANES) 04-22 Drug form: l 16:11: INJ, ONCE, Stop date: 04/22/19 10:11:00 [facility] lidocaine 2019-0 No Route: IV, Me moria (ANES) 04-22 Drug form: l 16:11: INJ, ONCE, Stop date: 04/22/19 10:11:00 [facility] ciprofloxac 2019- No Route: IV, Memoria in (ANES) 04-22 Drug form: l 16:01: INJ, ONCE, Stop date: 04/22/19 10:01:00 [facility] Lactated 2019-0 No Route: IV, Mem oria Ringers 04-22 Total l Injection 15:26: Volume: Vi nn IV (ANES) 00 1,000, 1000 mL Start date: 04/22/19 9:26:00 M[facility] DIST[facility]ERY, Stop date: 04/22/19 10:26:00 [facility] Calcium 2019-0 No 1,000 mL, Memor ia Chloride 04-22 Rate: 75 l 0.0014 13:26: ml/hr, MEQ/ML / 00 Infuse Potassium over: 13.3 Chloride hr, Route: 0.004 IV, Dosing MEQ/ML / Weight 50 Sodium kg, Total Chloride Volume: 0.103 1,000, MEQ/ML / Start Sodium date: Lactate 04/22/19 0.028 7:26:00 MEQ/ML [facility]ER [facility], Injectable Duration: Solution 30 day, Stop date: 05/22/19 7:25:00 [facility], 1.48, m2, 0 Hydralazine No Notes: Raoul isabell 1-03 (Same as: l 12:02: Apresoline [place] ) Push over 5 minutes Metoprolol No Notes: Memor ia 1-03 (Same as: l 12:02: Lopressor) [place] 00 Push over 2 minutes Hydromorpho No Notes: Raoul isabell ne 1- Same as: l 12:02: Dilaudid Danie Flumazenil No Notes: Memor ia 1-03 (Same as: l 12:02: Romazicon) Danie 00 Naloxone No Notes: Memoria 1-03 Same as l 12:02: Narcan [place] Meperidine No Notes: Memor ia -03 (Same as: l 12:02: Demerol) [place] 00 "Use Precaution in Elderly, Seizure disorders, and Renal impairment " Ondansetron No Notes: Raoul isabell 1-03 (Same as: l 12:02: Zofran) Danie MEDICATION WASTE Product Size: 4 mg Product Wasted: ___ mg Potassium 2018-04 No Notes: Memori a Chloride 2-31 Infuse at l 02:29: a rate of [place] 00 10 mEq/hr. (Same as: KCL) Sodium 2018-04 No 1,000 mL, Memori a Chloride 2-31 1000 l 0.9% 02:29: ml/hr, [place] (Bolus) IV 00 Infuse Over: 1 hr, Route: IV, 1,000, Drug form: INJ, ONCE, Priority: STAT, Dosing Weight 50 kg, Start date: 04/18/19 20:29:00 MILLER DISTILLERY, Stop date: 04/18/19 20:29:00 [facility] DIST[facility], 0 potassium 2018-04 No Notes: Memori a [...] s with feeding tube less than 14 Arabic (Dobhoff, J-tube etc) and pediatric and patients. Magnesium 2018-04 No Notes: Memori a Sulfate WASTE: F/P l 02:28: - Sink; E [place] - [facility] [employer] [facility] Ciprofloxac 2018-04 Yes 500 mg = 1 Memoria in 500 MG 2-16 tab, PO, l Oral Tablet 17:21: Q12H, Vi nn [Cipro] 00 start taking on 04/19/19, X 3 day, # 6 tab, 0 Refill(s), Pharmacy: [id number] cefpodoxime 2018-04 Yes 100 mg = 1 Memoria 100 mg oral 2-16 tab, PO, l tablet 16:44: Q12H, X 7 Hi n 00 day, # 14 tab, 0 Refill(s), Pharmacy: [id number] Thyroxine 2018-04 Yes Daily, 0 Raoul isabell 2-02 Refill(s) l 16:10: Propafenone 2018-04 Yes PO, 0 Memor ia 2-02 Refill(s) l 16:10: Xarelto 2018-04 Yes PO, 0 Memoria 2-02 Refill(s) l 16:10: Fludrocorti 2018-04 Yes 0.1 mg, Mem oria sone 2-02 PO, Daily, l 16:10: 0 Danie 00 Refill(s) Simvastatin 2018-04 Yes PO, 0 Memor ia 2-02 Refill(s) l 16:10: [place] 00 8 HR 2018-04 Yes 1 cap, PO, Memoria Carbidopa 2-02 TID, 0 l 61.25 MG / 16:10: Refill(s) He rmann Levodopa 00 245 MG Extended Release Oral Capsule [Rytary] Colace 2018-04 Yes PO, Memoria 2-in-1 2-02 Bedtime, 0 l 16:10: Refill(s) [place] Claritin 2018- Yes Daily, 0 Memor ia 2-02 Refill(s) l 16:10: [place] 00 gabapentin 2018- Yes PO, 0 Memori a 2-02 Refill(s) l 16:10: Dan[place] 00 Immunizations Ordered Filled Immunization Date Status Comments [facility] e Immunization Name Name Zoster Vaccine 2021-04-[address] [facility] 00:00:00 [facility] Influenza Virus 2021-01-30 Completed Universit y of Vaccine,quad 00:00:00 [place] [facility] 65+ Influenza Virus 2021-01-30 Completed Universit y of Vaccine,quad 00:00:00 [place] [facility] Im,preserve Free [facility] 65+ Influenza Virus 2021-01-30 Completed Universit y of Vaccine,quad 00:00:00 [place] [facility] Im,preserve Free Branch 65+ Influenza Virus 2021-01-30 Completed Universit y of Vaccine,quad 00:00:00 [place] [facility]ica [facility] Im,preserve Free Branch 65+ Influenza Virus 2021-01-30 Completed Universit y of Vaccine,quad 00:00:00 [place] Medica [facility] Im,preserve Free Branch 65+ Influenza Virus 2021-01-30 Completed Universit y of Vaccine,quad 00:00:00 [place] Medica l Im,preserve Free Branch 65+ Influenza Virus 2021-01-30 Completed Universit y of Vaccine,quad 00:00:00 [place] [facility] 65+ SARS-COV-2 COVID-19 2021-01-28 Completed Unive rsity of PFIZER VACCINE 00:00:00 [facility] SARS-COV-2 COVID-19 2021-01-28 Completed Unive rsity of PFIZER VACCINE 00:00:00 [facility] SARS-COV-2 COVID-19 2021-01-28 Completed Unive rsity of PFIZER VACCINE 00:00:00 [facility] SARS-COV-2 COVID-19 2021-01-28 Completed Unive rsity of PFIZER VACCINE 00:00:00 [facility] SARS-COV-2 COVID-19 2021-01-28 Completed Unive rsity of PFIZER VACCINE 00:00:00 [facility] SARS-COV-2 COVID-19 2021-01-28 Completed Unive rsity of PFIZER VACCINE 00:00:00 [facility] SARS-COV-2 COVID-19 2021-01-28 Completed Unive rsity of PFIZER VACCINE 00:00:00 [facility] Zoster Vaccine 2021-01-13 Completed University of Recombinant 00:00:00 [facility] TDAP 2020-12-27 Completed University of 00:00:00 [facility] TDAP 2020-12-27 Completed University of 00:00:00 [facility] TDAP 2020-12-27 Completed University of 00:00:00 [facility] TDAP 2020-12-27 Completed University of 00:00:00 [facility] TDAP 2020-12-27 Completed University of 00:00:00 [facility] TDAP 2020-12-27 Completed University of 00:00:00 [facility] TDAP 2020-12-27 Completed University of 00:00:00 [facility] Pneumococcal 2020-12-13 Completed University o f Polysaccharide, 00:00:00 [place] [facility] PPSV23 (PNEUMOVAX) Branch Pneumococcal 2020-12-13 Completed University o f Polysaccharide, 00:00:00 [place] [facility] PPSV23 (PNEUMOVAX) Branch Pneumococcal 2020-12-13 Completed University o f Polysaccharide, 00:00:00 [place] [facility] PPSV23 (PNEUMOVAX) Branch Pneumococcal 2020-12-13 Completed University o f Polysaccharide, 00:00:00 [place] [facility] PPSV23 (PNEUMOVAX) Branch Pneumococcal 2020-12-13 Completed University o f Polysaccharide, 00:00:00 [place] [facility] PPSV23 (PNEUMOVAX) Branch Pneumococcal 2020-12-13 Completed University o f Polysaccharide, 00:00:00 [place] [facility] PPSV23 (PNEUMOVAX) Branch Pneumococcal 2020-12-13 Completed University o f Polysaccharide, 00:00:00 [place] [facility] PPSV23 (PNEUMOVAX) Branch SARS-COV-2 COVID-19 2020-06-03 Completed Unive rsity of PFIZER VACCINE 00:00:00 [facility] SARS-COV-2 COVID-19 2020-06-03 Completed Unive rsity of PFIZER VACCINE 00:00:00 [facility] SARS-COV-2 COVID-19 2020-06-03 Completed Unive rsity of PFIZER VACCINE 00:00:00 [facility] SARS-COV-2 COVID-19 2020-06-03 Completed Unive rsity of PFIZER VACCINE 00:00:00 [facility] SARS-COV-2 COVID-19 2020-06-03 Completed Unive rsity of PFIZER VACCINE 00:00:00 [facility] SARS-COV-2 COVID-19 2020-06-03 Completed Unive rsity of PFIZER VACCINE 00:00:00 [facility] SARS-COV-2 COVID-19 2020-06-03 Completed Unive rsity of PFIZER VACCINE 00:00:00 [facility] [id number] 2020-05-13 Completed Izzy Helton [id number] 19:20:00 ER<sup>1</sup> SARS-COV-2 COVID-19 2020-05-13 Completed Unive rsity of PFIZER VACCINE 00:00:00 [facility] SARS-COV-2 COVID-19 2020-05-13 Completed Unive rsity of PFIZER VACCINE 00:00:00 [facility] SARS-COV-2 COVID-19 2020-05-13 Completed Unive rsity of PFIZER VACCINE 00:00:00 [facility] SARS-COV-2 COVID-19 2020-05-13 Completed Unive rsity of PFIZER VACCINE 00:00:00 [facility] SARS-COV-2 COVID-19 2020-05-13 Completed Unive rsity of PFIZER VACCINE 00:00:00 [facility] SARS-COV-2 COVID-19 2020-05-13 Completed Unive rsity of PFIZER VACCINE 00:00:00 [facility] SARS-COV-2 COVID-19 2020-05-13 Completed Unive rsity of PFIZER VACCINE 00:00:00 [facility] Influenza Virus 2020-02-13 Completed Universit y of Vaccine Quad .5 mL 00:00:00 [place] [facility] 6[facility] MO Branch Influenza Virus 2020-02-13 Completed Universit y of Vaccine Quad .5 mL 00:00:00 [place] [facility] 6+ MO [facility] Influenza Virus 2020-02-13 Completed Universit y of Vaccine Quad .5 mL 00:00:00 [facility] IM 6+ MO Branch Influenza Virus 2020-02-13 Completed Universit y of Vaccine Quad .5 mL 00:00:00 [facility] IM 6+ MO Branch Influenza Virus 2020-02-13 Completed Universit y of Vaccine Quad .5 mL 00:00:00 [facility] IM 6+ MO Branch Influenza Virus 2020-02-13 Completed Universit y of Vaccine Quad .5 mL 00:00:00 [facility] IM 6+ MO Branch Influenza Virus 2020-02-13 Completed Universit y of Vaccine Quad .5 mL 00:00:00 [facility] 6+ MO Branch Influenza Virus 2018-02-03 Completed Universit y of Vaccine 00:00:00 [facility] Influenza Virus 2018-02-03 Completed Universit y of Vaccine 00:00:00 [facility] Influenza Virus 2018-02-03 Completed Universit y of Vaccine 00:00:00 [facility] Influenza Virus 2018-02-03 Completed Universit y of Vaccine 00:00:00 [facility] Influenza Virus 2018-02-03 Completed Universit y of Vaccine 00:00:00 [facility] Influenza Virus 2018-02-03 Completed Universit y of Vaccine 00:00:00 [facility] Influenza Virus 2018-02-03 Completed Universit y of Vaccine 00:00:00 [facility] Vital Signs Vital Name Observation Time Observation Value Comments Source Systolic blood 2021-05-14 19:06:00 132 mm[Hg] Univer sity of pressure [facility] Diastolic blood 2021-05-14 19:06:00 61 mm[Hg] Unive rsity of pressure [facility] Heart rate 2021-05-14 19:06:00 80 /min [facility] Body temperature 2021-05-14 19:06:00 36.89 Jenny Univ ersity of [facility] Respiratory rate 2021-05-14 19:06:00 16 /[facility] height 2021-05-14 19:06:00 157.5 cm Universi [facility] Body weight 2021-05-14 19:06:00 47.129 kg [facility] BMI 2021-05-14 19:06:00 19.00 kg/m2 [facility] Height 2021-03-04 15:22:[address] [facility] Weight 2021-03-04 15:22:00 [facility] BMI Calculated 2021-03-04 15:22:00 [facility] Temperature Oral (F) 2020-09-03 13:50:00 97.8 F [facility] Height 2020-09-03 13:50:00 154.94 cm [facility] Weight 2020-09-03 13:50:00 [facility] BMI Calculated 2020-09-03 13:50:00 [facility] Temperature Oral (F) 2020-03-12 16:24:00 97.6 F [facility] Height 2020-03-12 16:24:00 154.94 cm [facility] Weight 2020-03-12 16:24:00 [facility] BMI Calculated 2020-03-12 16:24:00 [facility] Weight 2019-09-13 15:12:00 [facility] Temperature Oral (F) 2019-09-13 15:03:00 97.6 F [facility] Height 2019-09-13 15:03:00 154.94 cm [facility] Weight 2019-09-13 15:03:00 [facility] BMI Calculated 2019-09-13 15:03:00 [facility] Height 2019-05-17 15:50:00 154.94 cm [facility] Weight 2019-05-17 15:50:00 [facility] BMI Calculated 2019-05-17 15:50:00 [facility] Respitory Rate 2019-04-22 17:15:00 [facility] Systolic (mm Hg) 2019-04-22 17:15:00 Raoul rial [facility] Diastolic (mm Hg) 2019-04-22 17:15:00 [facility] Respitory Rate 2019-04-22 17:00:00 [facility] Systolic (mm Hg) 2019-04-22 17:00:00 Raoul rial [place] Diastolic (mm Hg) 2019-04-22 17:00:00 [facility] Respitory Rate 2019-04-22 16:45:00 [facility] Systolic (mm Hg) 2019-04-22 16:45:00 Raoul rial [facility] Diastolic (mm Hg) 2019-04-22 16:45:00 Mem [facility] Systolic (mm Hg) 2019-04-19 05:01:00 Raoul rial [facility] Diastolic (mm Hg) 2019-04-19 05:01:00 [facility] Systolic (mm Hg) 2019-04-19 04:11:00 Raoul rial [place] Diastolic (mm Hg) 2019-04-19 04:11:00 [facility] Systolic (mm Hg) 2019-04-19 03:20:00 Raoul [facility] Diastolic (mm Hg) 2019-04-19 03:20:00 Mem [facility] Respitory Rate 2019-04-19 03:20:00 [facility] Heart Rate 2019-04-19 00:20:00 [facility] Respitory Rate 2019-04-19 00:20:00 [facility] Temperature Oral (F) 2019-04-19 00:20:00 97.7 F [facility] Height 2019-04-19 00:20:00 154.94 cm [facility] BMI Calculated 2019-04-19 00:20:00 [facility] Weight 2019-04-19 00:20:00 [facility] Temperature Oral (F) 2019-04-18 21:56:00 98.2 F [facility] Heart Rate 2019-04-18 21:56:00 [facility] Height 2019-04-18 21:35:00 157.48 cm [facility] Weight 2019-04-18 21:35:00 [facility] BMI Calculated 2019-04-18 21:35:00 [facility] Height 2019-04-04 15:55:00 154.94 cm [facility] Weight 2019-04-04 15:55:00 [facility] BMI Calculated 2019-04-04 15:55:00 [facility] Height 2019-03-21 15:59:00 157.48 cm [facility] Weight 2019-03-21 15:59:00 [facility] BMI Calculated 2019-03-21 15:59:00 [facility] Procedures Procedure Date / Time Performing Clinician Source Performed EXTERNAL PROVIDER RECORDS 2021-07-03 05:01:00 Doctor Unassigned, [facility] Name [facility] [place] EXTERNAL PROVIDER RECORDS 2021-06-20 06:01:00 Doctor Unassigned, [facility] Name [facility] EXTERNAL PROVIDER RECORDS 2021-05-27 06:01:00 Doctor Unassigned, [facility] Measurement of 2021-02-26 17:04:00 Noa vasquez post-voiding residual urine and/or bladder capacity by ultrasound, non-imaging Complex uroflowmetry (eg, 2021-02-26 17:04:00 Tx anthony Helton calibrated electronic equipment) Electromyography studies 2019-04-04 16:44:00 Mem oriezequiel Helton (EMG) of anal or urethral sphincter, other than needle, any technique Voiding pressure studies, 2019-04-04 16:44:00 Tx morial [facility] intra-abdominal (ie, rectal, gastric, intraperitoneal) (List separately in addition to code for primary procedure) Complex cystometrogram 2019-04-04 16:44:00 [facility] (ie, calibrated electronic equipment); with voiding pressure studies (ie, bladder voiding pressure), any technique Abdominal [facility] hysterectomy<sup>1, 2</sup> Appendectomy<sup>3</sup> Memoria [facility] Carpal tunnel [facility] release<sup>5</sup> Hip [facility] replacement<sup>6</sup> Hysterectomy [facility] Laminectomy<sup>7</sup> [facility] Lumbar spinal [facility] fusion<sup>8</sup> Ovarian [facility] cystectomy<sup>9</sup> Release of trigger [facility] thumb<sup>10</sup> Tonsillectomy<sup>11</sup> [facility] Plan of Care Planned Activity Planned Date Details Comments Source Future Scheduled Test [QLH] CALCIUM, IONIZED [facility] 06/11/2012 Routine [code = [QLH] CALCIUM, IONIZED 06/11/2012 Routine] Future Scheduled Test [QLH] CALCIUM, IONIZED [facility] 06/11/2012 Routine [code = [QLH] CALCIUM, IONIZED 06/11/2012 Routine] Encounters Start End Encounter Admission Attending Care Care Encounter Source Date/Time Date/Time Type Type Clinicians Facility Department ID 2022-01-20 2022-01-20 Outpatient [place] [facility] [id number] [facility] 10:30:00 10:30:00 BABAR gaitan [facility] 2022-01-13 2022-01-13 Outpatient [place] [facility] [id number] [facility] 10:00:00 10:00:00 BABAR [facility] 2021-09-02 2021-09-02 Outpatient MHIE MHIE [id number] [facility] 09:15:00 09:15:00 98 chung Helton 2021-08-28 2021-08-28 Outpatient MHIE MHIE [id number] [facility] 10:00:00 10:00:00 97 chung Helton 2021-08-13 2021-08-13 Outpatient R SUN, [facility] [id number] Univers 13:00:00 13:00:00 JULY [facility] 2021-07-17 2021-07-17 Outpatient R HERMES, [facility] [id number] Univers 11:00:00 [facility]00[facility] 2021-07-16 2021-07-16 [facility] [id number] Univers 11:20:00 11:20:00 COLBY [id number] [facility] 2021-07-16 2021-07-16 [facility] [id number] Univers 11:20:00 11:20:00 COLBY [facility] 2021-07-03 2021-07-03 Orders Doctor FARHAD [id number] Univers 00:00:00 00:00:00 Only Unassigned, WENCESLAO 350.1.13.10 ity of [place] [facility] 4.2.7.2.686 Satish as [phone] [address] 2021-06-25 2021-06-25 [facility] [place] [facility] [id number] Univers 10:15:00 11:25:13 WONDIFUL ity o f [facility] 2021-06-20 2021-06-20 Orders Doctor FARHAD [id number] Univers 00:00:00 00:00:00 Only Unassigned, [place] 350.1.13.10 ity of [place] [facility] 4.2.7.2.686 Satish as [phone] [address] 2021-06-07 2021-06-07 Outpatient CATALINO [facility]VALO [facility] [id number] [place] 00:00:00 00:00:[address] 2021-05-27 2021-05-27 Orders Doctor FARHAD [id number] [id number] Univers 00:00:00 00:00:00 Only Unassigned, [place] 350.1.13.10 ity of [place] [facility] 4.2.7.2.686 Satish as [phone] [address] 2021-05-18 2021-05-18 [facility] 1.2.840.114 [id number] Univers 00:00:00 00:00:00 Sudha Y HEALTH 350.1.13.10 i ty [place] [id number] [address] 2021-05-16 2021-05-16 [facility] 1.2.840.114 [id number] Univers 00:00:00 00:00:00 Sudha Y HEALTH 350.1.13.10 i [place] [id number] [address] 2021-05-15 2021-05-15 Telephone [facility] 1.2.840.114 [id number] Univers 00:00:00 00:00:00 Sudha Y HEALTH 350.1.13.10 i ty [place] [id number] [address] 2021-05-14 2021-05-14 Office [facility] 1.2.840.114 [id number] Univers 13:00:00 13:30:00 Visit Sudha Y HEALTH 350.1.13.10 i ty [place] [id number] [address] 2021-05-14 2021-05-14 Outpatient [place] G[facility] [id number] Univers 13:00:00 13:00:00 SUDHA ity of [facility] 2021-05-09 2021-05-09 Outpatient R ADRIAN [facility] [id number] Univers 10:00:00 10:25:52 WONDIFUL ity o f [facility] 2021-05-07 2021-05-07 Outpatient CATALINO AREVALO [facility] [id number] [place] 00:00:00 00:00:00 819 Method kiana pappas 2021-04-05 2021-04-05 Outpatient R ERWIN [facility] [id number] Univers 08:15:00 09:01:03 BABAR gaitan [facility] 2021-03-04 2021-03-05 [place] [id number] Memoria 15:15:00 05:59:59 r Urology 96 l Associates Vi [facility] 2021-02-26 2021-02-27 [place] [id number] Memoria 16:00:00 05:59:59 r Urology 95 l Associates Vi [facility] 2020-09-03 2020-09-04 [place] [id number] Memoria 14:15:00 04:59:59 r Urology 94 l Associates Vi [facility] 2020-03-12 2020-03-13 Outpatient nullFlavo [facility] [id number] Memoria 16:30:00 05:59:59 r Urology 93 l Associates Vi [facility] 2020-03-13 2020-03-13 [facility] 1.2.840.114 [id number] 00:00:00 00:00:00 Wondiful A Health 350.1.13.10 [place] 4.2.7.2.686 Professio [phone] [facility] Office [facility] 2020-03-13 2020-03-13 [facility] 1.2.840.114 [id number] 00:00:00 00:00:00 [place] 350.1.13.10 [place] 4.2.7.2.686 Professio [phone] [place] [address] Office [facility] 2020-03-07 2020-03-07 [facility] 1.2.840.114 [id number] 00:00:00 00:00:00 [facility]iful [facility] 350.1.13.10 [place] 4.2.7.2.686 Professio [phone] [place] [address] Office [facility] 2020-03-06 2020-03-06 Orders Doctor FARHAD 1.2.840.114 [id number] 00:00:00 00:00:00 Only Unassigned, [place] 350.1.13.10 [place] [facility] 4.2.7.2.686 [id number] [id number] 2020-02-20 2020-02-20 Office MICHELLE Palma 1.2.840.114 [id number] 13:01:01 14:28:36 Visit [facility] 350.1.13.10 [facility] 4.2.7.2.686 [id number] 2019-09-13 2019-09-14 Outpatient nullFlavo [facility] [id number] Memoria 15:15:00 04:59:59 r Urology 91 l Associates Vi [facility] 2019-09-08 2019-09-09 Outpatient nullFlavo [facility] [id number] Memoria 14:00:00 04:59:59 r Urology 92 l [facility] 2019-05-17 2019-05-18 Outpatient nullFlavo [facility] [id number] Memoria 16:00:00 05:59:59 r Urology 90 l [employer] Vi [facility] 2019-04-22 2019-04-22 Day nullFlavo [facility] [id number] Memoria 13:11:00 17:45:00 Surgery r [place] 05 [facility] 2019-04-22 2019-04-22 Outpatient MHBL URO [id number] MHBL 07:11:00 07:11:00 2019-04-19 2019-04-19 Emergency nullFlavo [facility] [id number] Memoria 00:13:59 05:03:00 r [place] 07 [facility] 2019-04-18 2019-04-18 Emergency E MHBL MHBL [id number] MHBL 18:13:00 18:13:00 2019-04-11 2019-04-12 Outpatient nullFlavo [facility] [id number] Memoria 17:30:00 05:59:59 r Urology 89 l [facility] 2019-04-04 2019-04-05 Outpatient nullFlavo [facility] [id number] Memoria 16:00:00 05:59:59 r Urology 88 l Associates [facility] 2019-03-30 2019-03-30 Ambulatory nullFlavo [facility] [id number] Memoria 21:15:00 21:15:00 Pre-Reg r Urology 86 l Von castillo [place] 2019-03-25 2019-03-26 Outpatient nullFlavo [facility] [id number] Memoria 21:15:00 05:59:59 r Urology 87 l [facility] 2019-03-23 2019-03-24 Outpt Diag nullFlavo [facility] [id number] Memoria 19:25:00 05:59:00 Services r Outpatient 00 l Jovani Gaona 2019-03-21 2019-03-22 Outpatient nullFlavo [facility] [id number] Memoria 16:15:00 05:59:59 r Urology 85 l [facility] [address] [facility] 2016-12-30 2016-12-31 Outpatient nullFlavo [facility] [id number] Memoria 15:17:00 04:59:00 r [place] 03 l [facility] Results Test Description Test Time Test Comments Results Result Comments Source URINE AND STOOL 2019-05-17 16:10:00 Test Item Value Reference Range Interpretation Comme nts POC UA Color (test code = POC UA Color) Yellow *NA*(05/17/19 10:10 A M) [facility] HermannURINE AND [id number] 16:10:00 Test Item Value Reference Range Interpretation Comments POC UA Turbidity (test Clear *NA*(05/17/19 code = POC UA Turbidity) 10:10 AM) [facility] HermannURINE AND [id number] 16:10:00 Test Item Value Reference Range Interpretation Comments POC UA SG (test code = POC UA SG) 1.015 1 [facility] [id number] 16:10:00 Test Item Value Reference Range Interpretation Comments POC UA pH (test code = POC UA pH) 7.0 1 5.0-8.0 [facility] [id number] 16:10:00 Test Item Value Reference Range Interpretation Comments POC UA Prot (test code = POC Negative mg/dL UA Prot) [facility] HermannURINE AND [id number] 16:10:00 Test Item Value Reference Range Interpretation Comments POC UA Glu (test code = POC UA Negative mg/dL Glu) [facility] [id number] 16:10:00 Test Item Value Reference Range Interpretation Comments POC UA Ket (test code = POC UA Negative mg/dL Ket) [facility] AND [id number] 16:10:00 Test Item Value Reference Range Interpretation Comments POC UA Bili (test Negative *NA*(05/17/19 code = POC UA Bili) 10:10 AM) [facility] AND [id number] 16:10:00 Test Item Value Reference Range Interpretation Comments POC UA Bld (test code Trace *ABN*(05/17/19 = POC UA Bld) 10:10 AM) [facility] AND [id number] 16:10:00 Test Item Value Reference Range Interpretation Comments POC UA Uro (test code = POC UA Uro) 0.2 0.1-1.0 [facility] AND [id number] 16:10:00 Test Item Value Reference Range Interpretation Comments POC UA Nit (test code Negative *NA*(05/17/19 = POC UA Nit) 10:10 AM) [facility] AND [id number] 16:10:00 Test Item Value Reference Range Interpretation Comments POC UA LeukEst (test Negative *NA*(05/17/19 code = POC UA LeukEst) 10:10 AM) [id number] 13:33:00 Test Item Value Reference Range Interpretation Comments Potassium Lvl (test code = Potassium 3.9 3.5-5.1 Lvl) [facility] [id number] 00:34:00 Test Item Value Reference Range Interpretation Comments Glucose Lvl (test code = Glucose Lvl) 80 70-99 [facility] [id number] 00:34:00 Test Item Value Reference Range Interpretation Comments BUN (test code = BUN) 13 7-22 [facility] [id number] 00:34:00 Test Item Value Reference Range Interpretation Comments Creatinine Lvl (test code = Creatinine 0.79 0.50-1.40 Lvl) [facility] [id number] 00:34:00 Test Item Value Reference Range Interpretation Comments Sodium Lvl (test code = Sodium Lvl) 143 135-145 [facility] [id number] 00:34:00 Test Item Value Reference Range Interpretation Comments Potassium Lvl (test code = Potassium 2.9 3.5-5.1 Lvl) [facility]2019-12-31 00:34:00 Test Item Value Reference Range Interpretation Comments Chloride Lvl (test code = Chloride Lvl) 104 95-109 [facility]2019-12-31 00:34:00 Test Item Value Reference Range Interpretation Comments CO2 (test code = CO2) 34 24-32 [facility]2019-12-31 00:34:00 Test Item Value Reference Range Interpretation Comments AGAP (test code = AGAP) 7.9 10.0-20.0 [facility]2019-12-31 00:34:00 Test Item Value Reference Range Interpretation Comments Calcium Lvl (test code = Calcium Lvl) 9.1 8.5-10.5 [facility]2019-12-31 00:34:00 Test Item Value Reference Range Interpretation Comments eGFR (test code = eGFR) 72 [facility] AND [id number] 21:47:00 Test Item Value Reference Range Interpretation Comments UA pH (test code = UA pH) 7.0 1 5.0-8.0 [facility] AND [id number] 21:47:00 Test Item Value Reference Range Interpretation Comments UA Protein (test code = UA Negative mg/dL Protein) [facility] AND [id number] 21:47:00 Test Item Value Reference Range Interpretation Comments UA Glucose (test code = UA Negative mg/dL Glucose) [facility] AND [id number] 21:47:00 Test Item Value Reference Range Interpretation Comments UA Ketones (test code = UA Negative mg/dL Ketones) [facility] AND [id number] 21:47:00 Test Item Value Reference Range Interpretation Comments UA Bili (test code = Negative *NA*(04/18/19 UA Bili) 3:47 PM) [facility] AND [id number] 21:47:00 Test Item Value Reference Range Interpretation Comments UA Blood (test code = Small *ABN*(04/18/19 UA Blood) 3:47 PM) [facility] AND [id number] 21:47:00 Test Item Value Reference Range Interpretation Comments UA Nitrite (test code Negative (04/18/19 3:47 = UA Nitrite) PM) [facility] AND [id number] 21:47:00 Test Item Value Reference Range Interpretation Comments UA Leuk Est (test Negative (04/18/19 3:47 code = UA Leuk Est) PM) [facility] [facility] AND [id number] 21:47:00 Test Item Value Reference Range Interpretation Comments UA WBC (test code = 1 See_Comment [Automa robel message] The UA WBC) system which ge nerated this result transmit robel reference range : <=5. The reference range was not used to interpr et this result as bennie l/abnormal. [facility] AND [id number] 21:47:00 Test Item Value Reference Range Interpretation Comments UA RBC (test code = 1 See_Comment [Automa robel message] The UA RBC) system which ge nerated this result transmit robel reference range : <=2. The reference range was not used to interpr et this result as bennie l/abnormal. [facility] AND [id number] 21:47:00 Test Item Value Reference Range Interpretation Comments UA Bacteria (test code = UA Occasional /HPF Bacteria) [facility] AND [id number] 21:47:00 Test Item Value Reference Range Interpretation Comments UA Sq Epi (test code = UA Sq Epi) None Seen [facility] AND [id number] 21:47:00 Test Item Value Reference Range Interpretation Comments UA Color (test code = UA Color) COLORLESS [facility] AND [id number] 21:47:00 Test Item Value Reference Range Interpretation Comments UA Urobilinogen (test code = UA <=1.0 mg/dL 0.1-1.0 Urob[address]ogen) [facility] [id number] 21:47:00 Test Item Value Reference Range Interpretation Comments Culture: Urine (test <10,000 CFU/mL Skin code = Culture: Urine) [facility] [id number] 21:47:00 Test Item Value Reference Range Interpretation Comments Glucose Lvl (test code = Glucose Lvl) 92 70-99 [facility] [id number] 21:47:00 Test Item Value Reference Range Interpretation Comments BUN (test code = BUN) 13 7-22 [facility]2019-12-30 21:47:00 Test Item Value Reference Range Interpretation Comments Creatinine Lvl (test code = Creatinine 0.85 0.50-1.40 Lvl) [facility]2019-12-30 21:47:00 Test Item Value Reference Range Interpretation Comments Sodium Lvl (test code = Sodium Lvl) 142 135-145 [facility]2019-12-30 21:47:00 Test Item Value Reference Range Interpretation Comments Potassium Lvl (test code = Potassium 2.7 3.5-5.1 Lvl) [facility]2019-12-30 21:47:00 Test Item Value Reference Range Interpretation Comments Chloride Lvl (test code = Chloride Lvl) 104 95-109 [facility]2019-12-30 21:47:00 Test Item Value Reference Range Interpretation Comments CO2 (test code = CO2) 33 24-32 [facility]2019-12-30 21:47:00 Test Item Value Reference Range Interpretation Comments AGAP (test code = AGAP) 7.7 10.0-20.0 [facility]2019-12-30 21:47:00 Test Item Value Reference Range Interpretation Comments Calcium Lvl (test code = Calcium Lvl) 9.0 8.5-10.5 [facility]2019-12-30 21:47:00 Test Item Value Reference Range Interpretation Comments eGFR (test code = eGFR) 67 [id number] 21:47:00 Test Item Value Reference Range Interpretation Comments WBC (test code = WBC) 4.3 3.7-10.4 [facility] HospitalGcgkhxiZLQQPCENFP0132-27-12 21:47:00 Test Item Value Reference Range Interpretation Comments RBC (test code = RBC) 4.12 4.20-5.40 [facility] HospitalWglciwlCRJPMJANRR9349-31-14 21:47:00 Test Item Value Reference Range Interpretation Comments Hgb (test code = Hgb) 13.2 12.0-16.0 [facility] HospitalQbogllnGYNZKRGBJC1716-09-04 21:47:00 Test Item Value Reference Range Interpretation Comments Hct (test code = Hct) 40.1 36.0-48.0 [facility] HospitalSyzhgcaHHTOJQBTSX4416-25-85 21:47:00 Test Item Value Reference Range Interpretation Comments MCV (test code = MCV) 97.3 80.0-98.0 [facility] H[id number] 21:47:00 Test Item Value Reference Range Interpretation Comments MCH (test code = MCH) 32.1 pg 27.0-31.0 [facility] HospitalJaouofxEKCXSHNDHA1610-23-98 21:47:00 Test Item Value Reference Range Interpretation Comments MCHC (test code = MCHC) 33.0 32.0-36.0 [facility] HospitalIxgjvgtVNTDKJZWXL8709-81-30 21:47:00 Test Item Value Reference Range Interpretation Comments RDW (test code = RDW) 13.6 11.5-14.5 [facility] Hos[id number] 21:47:00 Test Item Value Reference Range Interpretation Comments Platelet (test code = Platelet) 204 133-450 [facility] HospitalGdlqrdeUWGUHKFLBX5474-47-62 21:47:00 Test Item Value Reference Range Interpretation Comments MPV (test code = MPV) 8.4 7.4-10.4 [facility] Hospit[id number] 21:47:00 Test Item Value Reference Range Interpretation Comments INR (test code = INR) 1.10 1 0.85-1.17 [facility] HospitalAfswxtzBFDHGTPWEF2863-55-73 21:47:00 Test Item Value Reference Range Interpretation Comments PT (test code = PT) 14.2 s 12.0-14.7 [facility] H[id number] 21:47:00 Test Item Value Reference Range Interpretation Comments PTT (test code = PTT) 40.7 s 22.9-35.8 [facility] HospitalEtxztqvMFDUDEDHPB7139-78-84 21:47:00 Test Item Value Reference Range Interpretation Comments Segs (test code = Segs) 57.3 45.0-75.0 [facility] HospitalMxthehhCVZJILGDBT1241-70-66 21:47:00 Test Item Value Reference Range Interpretation Comments Lymphocytes (test code = Lymphocytes) 27.2 20.0-40.0 [facility] HospitalLuvcjysPULNJGLKBP2400-69-44 21:47:00 Test Item Value Reference Range Interpretation Comments Monocytes (test code = Monocytes) 13.4 2.0-12.0 [facility] HospitalAvsjddmKCOFCXKBDQ6279-41-49 21:47:00 Test Item Value Reference Range Interpretation Comments Eosinophils (test code = 1.4 See_Comment [A utomated message] The Eosinophils) system which ge nerated this result tra nsmitted reference range : <=4.0. The reference r bart was not used to int erpret this result as normal/abnormal . [facility] HospitalIsolrtiHOPFTPGBAL0323-42-29 21:47:00 Test Item Value Reference Range Interpretation Comments Basophils (test code = 0.7 See_Comment [Aut omated message] The Basophils) system which ge nerated this result tra nsmitted reference range : <=1.0. The reference r bart was not used to int erpret this result as normal/abnormal . [facility] HospitalFecrscyFWLGQAQAAW3369-59-80 21:47:00 Test Item Value Reference Range Interpretation Comments Neutrophils # (test code = Neutrophils 2.5 1.5-8.1 #) [facility] HospitalUateatkRDGNSLTRXF3731-82-71 21:47:00 Test Item Value Reference Range Interpretation Comments Lymphocytes # (test code = Lymphocytes 1.2 1.0-5.5 #) [facility] HospitalPgdgqnfNBTNFGBSGS8722-35-29 21:47:00 Test Item Value Reference Range Interpretation Comments Monocytes # (test code 0.6 See_Comment [Aut omated message] The = Monocytes #) system which generated this result tra nsmitted reference range : <=0.8. The reference r bart was not used to int erpret this result as normal/abnormal . [facility] HospitalUwfxwooZCGPABFLYH2358-40-54 21:47:00 Test Item Value Reference Range Interpretation Comments Eosinophils # (test code 0.1 See_Comment [A utomated message] The = Eosinophils #) system whic h generated this result tra nsmitted reference range : <=0.5. The reference r bart was not used to int erpret this result as normal/abnormal . [facility] AND [id number] 21:47:00 Test Item Value Reference Range Interpretation Comments UA Turbidity (test code = Clear (04/18/19 3:47 UA Turbidity) PM) [facility] AND [id number] 21:47:00 Test Item Value Reference Range Interpretation Comments UA Spec Grav (test code = UA Spec 1.002 1 Grav) [facility] AND [id number] 16:44:00 Test Item Value Reference Range Interpretation Comments POC UA Color (test Yellow *NA*(04/04/19 code = POC UA Color) 10:44 AM) [facility] [id number] 16:44:00 Test Item Value Reference Range Interpretation Comments POC UA Turbidity (test Clear *NA*(04/04/19 code = POC UA Turbidity) 10:44 AM) [facility] [id number] 16:44:00 Test Item Value Reference Range Interpretation Comments POC UA SG (test code = >=1.030 *ABN*(04/04/19 POC UA SG) 10:44 AM) [facility] [id number] 16:44:00 Test Item Value Reference Range Interpretation Comments POC UA pH (test code = POC UA pH) 7.0 1 5.0-8.0 [facility] [id number] 16:44:00 Test Item Value Reference Range Interpretation Comments POC UA Prot (test code = POC Negative mg/dL UA Prot) [facility] [id number] 16:44:00 Test Item Value Reference Range Interpretation Comments POC UA Glu (test code = POC UA Negative mg/dL Glu) [facility] [id number] 16:44:00 Test Item Value Reference Range Interpretation Comments POC UA Ket (test code = POC UA Negative mg/dL Ket) [facility] [id number] 16:44:00 Test Item Value Reference Range Interpretation Comments POC UA Bili (test Negative *NA*(04/04/19 code = POC UA Bili) 10:44 AM) [facility] [id number] 16:44:00 Test Item Value Reference Range Interpretation Comments POC UA Bld (test code Trace *ABN*(04/04/19 = POC UA Bld) 10:44 AM) [facility] [id number] 16:44:00 Test Item Value Reference Range Interpretation Comments POC UA Uro (test code = POC UA Uro) 0.2 0.1-1.0 [facility] [id number] 16:44:00 Test Item Value Reference Range Interpretation Comments POC UA Nit (test code Positive *ABN*(04/04/19 = POC UA Nit) 10:44 AM) [facility] [id number] 16:44:00 Test Item Value Reference Range Interpretation Comments POC UA LeukEst (test Moderate *ABN*(04/04/19 code = POC UA LeukEst) 10:44 AM) [facility] [id number] 16:41:00 Test Item Value Reference Range Interpretation Comments POC UA Color (test Yellow *NA*(03/21/19 code = POC UA Color) 10:41 AM) [facility] [id number] 16:41:00 Test Item Value Reference Range Interpretation Comments POC UA Turbidity (test Clear *NA*(03/21/19 code = POC UA Turbidity) 10:41 AM) [facility] AND [id number] 16:41:00 Test Item Value Reference Range Interpretation Comments POC UA SG (test code = POC UA SG) 1.010 1 [facility] AND [id number] 16:41:00 Test Item Value Reference Range Interpretation Comments POC UA pH (test code = POC UA pH) 7.0 1 5.0-8.0 [facility] AND [id number] 16:41:00 Test Item Value Reference Range Interpretation Comments POC UA Prot (test code = POC Negative mg/dL UA Prot) [facility] AND [id number] 16:41:00 Test Item Value Reference Range Interpretation Comments POC UA Glu (test code = POC UA Negative mg/dL Glu) [facility] AND [id number] 16:41:00 Test Item Value Reference Range Interpretation Comments POC UA Ket (test code = POC UA Negative mg/dL Ket) [facility] AND [id number] 16:41:00 Test Item Value Reference Range Interpretation Comments POC UA Bili (test Negative *NA*(03/21/19 code = POC UA Bili) 10:41 AM) [facility] AND [id number] 16:41:00 Test Item Value Reference Range Interpretation Comments POC UA Bld (test code Trace *NA*(03/21/19 = POC UA Bld) 10:41 AM) [facility] AND [id number] 16:41:00 Test Item Value Reference Range Interpretation Comments POC UA Uro (test code = POC UA Uro) 0.2 0.1-1.0 [facility] AND [id number] 16:41:00 Test Item Value Reference Range Interpretation Comments POC UA Nit (test code Negative *NA*(03/21/19 = POC UA Nit) 10:41 AM) No[facility] Parker2019-12-02 16:41:00 Test Item Value Reference Range Interpretation Comments POC UA LeukEst (test Small *ABN*(03/21/19 code = POC UA LeukEst) 10:41 AM) Noa Helton
[2021-07-12 11:52] LABS: Absolute Lymphocytes (CBC) 1.3 K/uL (0.7-4.9); Hematocrit 39.5 % (36.0-45.0); Lymphocytes % 29.5 % (15.3-44.8); MPV 9.1 fL (7.6-11.3); RBC Red Blood Cell Count 3.94 M/uL (3.86-4.86)
[2021-07-12 11:57] LABS: Protime INR 1.04
--- NOTE | 2021-07-12 11:59 | RAD REPORT ---
EXAM DESCRIPTION: CT - Ct Stroke Brain Wo Cont - 07/12/2021 11:50 am CLINICAL HISTORY: Confusion/alteration of awareness COMPARISON: none TECHNIQUE: Computed axial tomography of the head was obtained. All CT scans are performed using dose optimization technique as appropriate and may include automated exposure control or mA/KV adjustment according to patient size. FINDINGS: An intracranial bleed is not seen . The ventricles are normal in caliber. No extra-axial fluid collection is noted. Mild to moderate low-density within periventricular, deep and subcortical white matter likely ischemi c changes secondary to small vessel disease Fluid within the sinuses/ mastoids is not seen. Chronic sphenoid sinusitis IMPRESSION: No acute intracranial abnormality is seen. If patient's symptoms persist MRI of the bra in would be recommended. Dr Beltran of the emergency room was notified at 11:55 a.m. July 12, 2021
--- NOTE | 2021-07-12 12:05 | RAD REPORT ---
EXAM DESCRIPTION: CTHead angio07/12/2021 11:52 am CLINICAL HISTORY: Numbness COMPARISON: None TECHNIQUE: CT angiogram of the head was obtained. 3D MIPS reconstruction performed. All CT scans are performed using dose optimization technique as appropriate and may include automated exposure control or mA/KV adjustment according to patient size. FINDINGS: The basilar, internal carotid, anterior cerebral, middle cerebral and posterior cerebral a rteries are normal caliber. An aneurysm is not seen. There is mild calcified plaque. A significant stenosis is not noted. IMPRESSION: No significant abnormality is displayed
[2021-07-12 12:07] LABS: Potassium 3.9 mmol/L (3.5-5.1)
--- NOTE | 2021-07-12 12:24 | RAD REPORT ---
EXAM DESCRIPTION: [place] Single View07/12/2021 12:17 pm CLINICAL HISTORY: Numbness COMPARISON: 2003 FINDINGS: The lungs appear clear of acute infiltrate. The heart is normal size. monitoring and evaluation advisor ove rlies the chest IMPRESSION: No acute abnormalities displayed
--- NOTE | 2021-07-12 12:59 | EDPHYS ---
Physician Documentation [facility] Name: Natty Armenta Age: 81 yrs Sex: Female : 1940 Arrival Date: 07/12/2021 Time: 11:28 Bed 15 Private MD: ED Physician Jaime Beltran HPI: 07/12 11:38 This 81 yrs old Unknown Female presents to ER via Unassigned with complaints of S/S of rn Possible Stroke. 11:38 The patient's problem is reported as paresthesias, in right upper extremity, in right rn lower extremity, weakness, in the right upper extremity, in the right lower extremity. Onset: The symptoms/episode began/occurred at 06:05. Duration: This was a single incident, The episode is continuous. Context: the episode(s) was witnessed, by no one, symptoms became apparent at 06:05. occurred at home, occurred while the patient was at rest. The symptoms are alleviated by nothing. The symptoms are aggravated by nothing. Associated signs and symptoms: Pertinent positives: headache, numbness, weakness, Pertinent negatives: abdominal pain, chest pain, confusion, seizure, shortness of breath, vomiting. Severity of symptoms: At their worst the symptoms were moderate in the emergency department the symptoms have improved. The patient has experienced similar episodes in the past. The patient has not recently seen a physician. Pt reports this is 4th or 5th time in last 2 weeks that this has happened. Reports right arm and leg weakness and numbness, assoc with mild headache, woke up at 0600 and states felt normal, walked to den and felt weakness and numbness with difficulty walking at 0605. No fall or head injury. Reports other episodes were more brief, lasted less than 1 hour, and since got better on their own, did not seek medical care. Denies chest pain. . Historical: - Allergies: 11:45 Codeine; ph 11:45 Hydrocodone-Acetaminophen; ph 11:45 Tramadol HCl; ph - PMHx: 11:45 Parkinson's disease; Atrial fibrillation; ph - Immunization history:: Client reports receiving the 2nd dose of the Covid vaccine. - Social history:: Smoking status: Patient denies any tobacco usage or history of. - Family history:: not pertinent. - Hospitalizations: : No recent hospitalization is reported. ROS: 11:42 Constitutional: Negative for fever, chills, and weight loss, Eyes: Negative for injury, rn pain, redness, and discharge, Neck: Negative for injury, pain, and swelling, Cardiovascular: Negative for chest pain, palpitations, and edema, Respiratory: Negative for shortness of breath, cough, wheezing, and pleuritic chest pain, Abdomen/GI: Negative for abdominal pain, nausea, vomiting, diarrhea, and constipation, Back: Negative for injury and pain, MS/Extremity: Negative for injury and deformity, Skin: Negative for injury, rash, and discoloration, Neuro: + RUE/RLE weakness and numbness, no slurred speech, + headache. Exam: 11:42 Constitutional: This is a well developed, well nourished patient who is awake, alert, rn and in no acute distress. Head/Face: Normocephalic, atraumatic. Eyes: Pupils equal round and reactive to light, extra-ocular motions intact. Periorbital areas with no swelling, redness, or edema. Cardiovascular: Regular rate, irregular rhythm. No pulse deficits. Respiratory: No increased work of breathing, no retractions or nasal flaring. Abdomen/GI: soft, non-tender, no masses Skin: Warm, dry MS/ Extremity: Pulses equal, no cyanosis. Neuro: Awake and alert, GCS 15, oriented to person, place, time, and situation. Cranial nerves II-XII grossly intact. No drift RUE, + drift with 3+/5 strength RLE, + decreased sensation to RUE/RLE. Vital Signs: 11:37 BP 171 / 79; Pulse 87; Resp 18; Temp 97.7; Pulse Ox 98% on R/A; Weight 44.45 kg; Height ph 5 ft. 2 in. (157.48 cm); 12:32 BP 183 / 78; Pulse 69; Resp 16; Pulse Ox 99% ; bp 13:24 BP 199 / 76; Pulse 65; Resp 17; Pulse Ox 99% ; bp 14:30 BP 175 / 80; Pulse 69; Resp 16; Pulse Ox 100% ; bp 15:30 BP 186 / 83; Pulse 68; Resp 17; Pulse Ox 100% ; bp 16:30 BP 138 / 56; Pulse 72; Resp 17; Pulse Ox 98% ; bp 17:30 BP 147 / 68; Pulse 71; Resp 16; Pulse Ox 97% ; bp 18:30 BP 151 / 69; Pulse 72; Resp 16; Pulse Ox 98% ; bp 21:35 BP 163 / 71 LA Sitting (auto/reg); Pulse 77; Resp 17; Pulse Ox 97% ; Pain 0/10; bp 11:37 Body Mass Index 17.92 (44.45 kg, 157.48 cm) ph NIH Stroke Scale Scores: 11:35 NIHSS Score: 3 bp 11:42 NIHSS Score: 3 rn MDM: 11:30 Patient medically screened. rn 11:42 ED course: NIH 3, last known normal 5 hours and 40 min ago, symptoms have improved, not rn tPA candidate because outside of window. Ordered CT/CTA head as well as MRI brain stroke protocol. Explained everything to patient and family member.. 11:55 ED course: CT head neg per Dr. Garcia. . rn 12:57 Differential diagnosis: CVA, TIA, metabolic disorder. Differential diagnosis: Parkinson rn disease. Data reviewed: vital signs, nurses notes. Data reviewed: lab test result(s), EKG, radiologic studies, CT scan, and as a result, I will admit patient. Counseling: I had a detailed discussion with the patient and/or guardian regarding: the historical points, exam findings, and any diagnostic results supporting the discharge/admit diagnosis, lab results, radiology results, the need for further work-up and treatment in the hospital. Response to treatment: the patient's symptoms have mildly improved after treatment, and as a result, I will admit patient. Admission orders: after a detailed discussion of the patient's condition and case, the admit orders are written by me. 07/12 11:37 Order name: Basic Metabolic Panel; Complete Time: 12:14 rn 07/12 11:37 Order name: CBC with Diff; Complete Time: 12:14 rn 07/12 11:37 Order name: Protime (+inr); Complete Time: 12:14 rn 07/12 11:37 Order name: Ptt, Activated; Complete Time: 12:14 rn 07/12 11:49 Order name: Glucose, Ancillary Testing; Complete Time: 12:14 EDMS 07/12 12:14 Order name: CREATININE WHOLE BLOOD; Complete Time: 12:14 EDMS 07/12 13:18 Order name: CBC with Automated Diff EDMS 07/12 13:18 Order name: CBC with Automated Diff EDMS 07/12 13:18 Order name: Comprehensive Metabolic Panel [facility] 07/12 13:18 Order name: Comprehensive Metabolic Panel [facility] 07/12 13:18 Order name: Lipid Profile [facility] 07/12 13:18 Order name: Lipid Profile [facility] 07/12 13:18 Order name: Magnesium [facility] 07/12 13:18 Order name: Magnesium [facility] 07/12 11:37 Order name: CT Stroke Brain w/o Contrast; Complete Time: 12:14 rn 07/12 11:37 Order name: Stroke CXR 1 View; Complete Time: 12:55 rn 07/12 11:37 Order name: EKG; Complete Time: 11:38 rn 07/12 11:37 Order name: CT Head Angio; Complete Time: 12:14 rn 07/12 12:01 Order name: MRA Head Wo Cont [facility] 07/12 12:02 Order name: Brain W/Wo Cont [facility] 07/12 12:02 Order name: MRA Neck W/Wo Cont [facility] 07/12 13:18 Order name: Echo with Doppler [facility] 07/12 13:18 Order name: Phosphorus [facility] 07/12 13:18 Order name: Phosphorus [facility] 07/12 13:18 Order name: Carotid Artery Bilateral [facility] 07/12 13:18 Order name: Carotid Artery Bilateral [facility] 07/12 13:25 Order name: SARS-COV-2 RT PCR (Document "Date of Onset" if Symptomatic) 07/12 20:05 Order name: US [facility] 07/12 11:37 Order name: Accucheck; Complete Time: 11:39 rn 07/12 11:37 Order name: Cardiac monitoring; Complete Time: 12:04 rn 07/12 11:37 Order name: EKG - Nurse/Tech; Complete Time: 12:03 rn 07/12 11:37 Order name: IV Saline Lock; Complete Time: 11:39 rn 07/12 11:37 Order name: Labs collected and sent; Complete Time: 11:40 rn 07/12 11:37 Order name: NPO; Complete Time: 11:40 rn 07/12 11:37 Order name: O2 Per Protocol; Complete Time: 11:40 rn 07/12 11:37 Order name: O2 Sat Monitoring; Complete Time: 11:40 rn 07/12 11:37 Order name: Stroke Swallow Screen; Complete Time: 11:40 rn 07/12 13:18 Order name: Physical Therapy Consult [facility] 07/12 13:18 Order name: Speech Therapy Consult [facility] 07/12 13:18 Order name: NPO [facility] 07/12 13:18 Order name: NPO [facility] 07/12 13:18 Order name: NPO [facility] 07/12 13:18 Order name: EKG Electrocardiogram [facility] Administered Medications: No medications were administered Disposition Summary: 07/12/21 12:58 Hospitalization Ordered Hospitalization Status: Inpatient Admission rn Provider: Sriram Finn rn Location: Telemetry/MedSurg (Inpatient) rn Condition: Stable rn Problem: new rn Symptoms: have improved rn Bed/Room Type: Standard rn Room Assignment: 212(07/12/21 18:28) ja1 Diagnosis - Cerebral infarction, unspecified rn - Weakness rn - Paresthesia of skin rn Forms: - Medication Reconciliation Form rn - SBAR form rn NIH Stroke Scale - NIH Stroke Score Date: 07/12/2021 Time: 11:35 Total Score = 3 1a. Level of Consciousness (LOC) - 0(Alert) 1b. Level of Consciousness (LOC) (Month \\T\\ Age) - 0(Both) 1c. LOC Commands (Open \\T\\ Closes Eyes/Ski Production Supervisor) - 0(Both) 2. Best Gaze (Lateral Gaze Paresis) - 0(Normal) 3. Visual Field Loss - 0(No visual loss) 4. Facial Palsy - 0(Normal) 5a. Left Arm: Motor (10-second hold) - 0(No drift) 5b. Right Arm: Motor (10-second hold) - 0(No drift) 6a. Left Leg: Motor (5-second hold - always test supine) - 0(No drift) 6b. Right Leg: Motor (5-second hold - always test supine) - 2(Drift, some effort against gravity) 7. Limb Ataxia (finger/nose \\T\\ heel/clarke - test with eyes open) - 0(Absent) 8. Sensory Loss (pinprick arms/legs/face) - 1(Mild to moderate loss) 9. Best Language: Aphasia (description/naming/reading) - 0(No aphasia) 10. Dysarthria (speech clarity - read or repeat words) - 0(Normal) 11. Extinction and Inattention (visual/tactile/auditory/spatial/personal) - 0(No abnormality) Initials: bp NIH Stroke Scale - NIH Stroke Score Date: 07/12/2021 Time: 11:42 Total Score = 3 1a. Level of Consciousness (LOC) - 0(Alert) 1b. Level of Consciousness (LOC) (Month \\T\\ Age) - 0(Both) 1c. LOC Commands (Open \\T\\ Closes Eyes/Ski Production Supervisor) - 0(Both) 2. Best Gaze (Lateral Gaze Paresis) - 0(Normal) 3. Visual Field Loss - 0(No visual loss) 4. Facial Palsy - 0(Normal) 5a. Left Arm: Motor (10-second hold) - 0(No drift) 5b. Right Arm: Motor (10-second hold) - 0(No drift) 6a. Left Leg: Motor (5-second hold - always test supine) - 0(No drift) 6b. Right Leg: Motor (5-second hold - always test supine) - 2(Drift, some effort against gravity) 7. Limb Ataxia (finger/nose \\T\\ heel/clarke - test with eyes open) - 0(Absent) 8. Sensory Loss (pinprick arms/legs/face) - 1(Mild to moderate loss) 9. Best Language: Aphasia (description/naming/reading) - 0(No aphasia) 10. Dysarthria (speech clarity - read or repeat words) - 0(Normal) 11. Extinction and Inattention (visual/tactile/auditory/spatial/personal) - 0(No abnormality) Initials: rn Signatures: Dispatcher [employer] EDJaime Miguel MD MD rn Hall, Patricia, RN RN ph Aguilar, Jose, RN BARBY arriaza Corrections: (The following items were deleted from the chart) 12:01 11:46 MR STROKE PROTOCOL+MRI.RAD.BRZ ordered. EDMS EDMS 13:35 13:18 Chest Pa And Lat (2 Views) ordered. EDMS EDMS 18:12 12:58 rn sofiya 18:28 18:12 224 [email or web address]
--- NOTE | 2021-07-12 12:59 | ER ---
Nurse's Notes [facility] Name: Natty Armenta Age: 81 yrs Sex: Female : 1940 Arrival Date: 07/12/2021 Time: 11:28 Bed 15 Private MD: Diagnosis: Cerebral infarction, unspecified;Weakness;Paresthesia of skin Presentation: 07/12 11:37 Chief complaint: Patient states: Numbness and weakness to R arm and R leg, also reports ph headache, states that symptoms began shortly after she woke up at 6 am. Coronavirus screen: Vaccine status: Patient reports receiving the 2nd dose of the covid vaccine. Ebola Screen: No symptoms or risks identified at this time. No acute neurological deficit is noted. Pre-hospital glucose is not applicable to this patient. Initial Sepsis Screen: Does the patient meet any 2 criteria? No. Patient's initial sepsis screen is negative. Does the patient have a suspected source of infection? No. Patient's initial sepsis screen is negative. Risk Assessment: Do you want to hurt yourself or someone else? Patient reports no desire to harm self or others. Onset of symptoms was July 12, 2021. 11:37 Method Of Arrival: Wheelchair ph 11:37 Acuity: ANA 2 ph Triage Assessment: 11:35 The onset of the patients symptoms was July 12, 2021 at 06:00. General: Appears in no bp apparent distress. comfortable, Behavior is cooperative, appropriate for age, anxious. Pain: Denies pain. EENT: No deficits noted. Neuro: Reports numbness in right arm weakness in right leg. Cardiovascular: Rhythm is sinus rhythm. Respiratory: No deficits noted. GI: No signs and/or symptoms were reported involving the gastrointestinal system. : No signs and/or symptoms were reported regarding the genitourinary system. Derm: No deficits noted. Musculoskeletal: Capillary refill Range of motion:. Stroke Activation: Symptom onset > 6 hours Physician: Stroke Attending; Name: ; Notified At: ; Arrived At: Physician: Chief Stroke Resident; Name: ; Notified At: ; Arrived At: Physician: Stroke Resident; Name: ; Notified At: ; Arrived At: Physician: ED Attending; Name: ; Notified At: ; Arrived At: Physician: ED Resident; Name: ; Notified At: ; Arrived At: Stroke Activation: Symtpom onset >3 hours and < 6 hours Physician: Stroke Attending; Name: ; Notified At: ; Arrived At: Physician: Chief Stroke Resident; Name: ; Notified At: ; Arrived At: Physician: Stroke Resident; Name: ; Notified At: ; Arrived At: Physician: ED Attending; Name: ; Notified At: ; Arrived At: Physician: ED Resident; Name: ; Notified At: ; Arrived At: Historical: - Allergies: 11:45 Codeine; ph 11:45 Hydrocodone-Acetaminophen; ph 11:45 Tramadol HCl; ph - PMHx: 11:45 Parkinson's disease; Atrial fibrillation; ph - Immunization history:: Client reports receiving the 2nd dose of the Covid vaccine. - Social history:: Smoking status: Patient denies any tobacco usage or history of. - Family history:: not pertinent. - Hospitalizations: : No recent hospitalization is reported. Screenin:35 Abuse screen: Denies threats or abuse. Denies injuries from another. Nutritional bp screening: No deficits noted. Tuberculosis screening: No symptoms or risk factors identified. Fall Risk None identified. Assessment: 11:35 General: CODE STROKE CALLED BY TRIAGE. bp 11:35 VAN Scoring: Arm Drift: Patients demonstrates NO arm weakness. Patient is VAN Negative. bp T-PA (Activase) Screening: Contraindications: Patient reports onset of signs and symptoms of stroke greater than 6 hours ago: Yes. 11:40 Reassessment: PT TO CT. bp 12:10 The patient has not been NPO before screening. The patient is alert, and able to follow bp commands. The patient does not exhibit slurred or garbled speech. The patient is not exhibiting difficulty speaking. The patient does not exhibit difficulty understanding words. The patient is able to swallow own secretions with no drooling or need for suction. Patient tolerated one teaspoon of water. No drooling, immediate coughing, gurgling, or clearing of the throat was noted. The patient tolerated 90mL of water. No drooling, immediate coughing, gurgling, or clearing of the throat was noted. The patient passed the bedside swallow screening. Oral medications may be given as ordered. Contact Physician for further diet orders. Provider notified of bedside swallow screening results: Jaime Beltran MD. 12:30 Reassessment: No changes from previously documented assessment. Patient and/or family bp updated on plan of care and expected duration. Pain level reassessed. MRA PENDING. 13:25 Reassessment: No changes from previously documented assessment. Patient and/or family bp updated on plan of care and expected duration. Pain level reassessed. ADMIT INITIATED. PT TO MRI. 14:33 Reassessment: No changes from previously documented assessment. Patient and/or family bp updated on plan of care and expected duration. Pain level reassessed. PT RETURNED FROM MRI. 16:30 Reassessment: No changes from previously documented assessment. Patient and/or family bp updated on plan of care and expected duration. Pain level reassessed. ADMIT IN PROCESS. 18:20 Reassessment: ATTEMPT TO CALL REPORT, STAFF UNAVAILABLE. bp 18:39 Reassessment: 2ND ATTEMPT AT REPORT, PER MYKEL, FLOOR UNABLE TO TAKE REPORT. bp 21:35 Reassessment: rePORT CALLED TO Merlene baca ON THE SECOND FLOOR. . bp Vital Signs: 11:37 BP 171 / 79; Pulse 87; Resp 18; Temp 97.7; Pulse Ox 98% on R/A; Weight 44.45 kg; Height ph 5 ft. 2 in. (157.48 cm); 12:32 BP 183 / 78; Pulse 69; Resp 16; Pulse Ox 99% ; bp 13:24 BP 199 / 76; Pulse 65; Resp 17; Pulse Ox 99% ; bp 14:30 BP 175 / 80; Pulse 69; Resp 16; Pulse Ox 100% ; bp 15:30 BP 186 / 83; Pulse 68; Resp 17; Pulse Ox 100% ; bp 16:30 BP 138 / 56; Pulse 72; Resp 17; Pulse Ox 98% ; bp 17:30 BP 147 / 68; Pulse 71; Resp 16; Pulse Ox 97% ; bp 18:30 BP 151 / 69; Pulse 72; Resp 16; Pulse Ox 98% ; bp 21:35 BP 163 / 71 LA Sitting (auto/reg); Pulse 77; Resp 17; Pulse Ox 97% ; Pain 0/10; bp 11:37 Body Mass Index 17.92 (44.45 kg, 157.48 cm) ph NIH Stroke Scale Scores: 11:35 NIHSS Score: 3 bp 11:42 NIHSS Score: 3 agriculture internship Course: 11:28 Patient arrived in ED. am2 11:29 Jaime Beltran MD is Attending Physician. rn 11:30 Eliceo Vizcarra, RN is Primary Nurse. bp 11:35 Patient has correct armband on for positive identification. Bed in low position. Call bp light in reach. Side rails up X2. Adult w/ patient. 11:43 Inserted saline lock: 20 gauge in right upper arm, using aseptic technique. Blood tp1 collected. 11:45 Triage completed. ph 11:46 Arm band placed on Patient placed in an exam room. ph 11:51 CT Stroke Brain w/o Contrast In Process Unspecified. EDMS 11:54 CT Head Angio In Process Unspecified. EDMS 12:19 Stroke CXR 1 View In Process Unspecified. EDMS 12:57 Sriram Finn MD is Hospitalizing Provider. rn 18:30 No provider procedures requiring assistance completed. Patient admitted, IV remains in bp place. Administered Medications: No medications were administered Outcome: 12:58 Decision to Hospitalize by Provider. rn 21:35 Admitted to Med/surg accompanied by nurse. bp 21:35 Condition: stable 21:35 Instructed on the need for admit. 22:39 Patient left the ED. bb NIH Stroke Scale - NIH Stroke Score Date: 07/12/2021 Time: 11:35 Total Score = 3 1a. Level of Consciousness (LOC) - 0(Alert) 1b. Level of Consciousness (LOC) (Month \T\ Age) - 0(Both) 1c. LOC Commands (Open \T\ Closes Eyes/Scrap Sorter) - 0(Both) 2. Best Gaze (Lateral Gaze Paresis) - 0(Normal) 3. Visual Field Loss - 0(No visual loss) 4. Facial Palsy - 0(Normal) 5a. Left Arm: Motor (10-second hold) - 0(No drift) 5b. Right Arm: Motor (10-second hold) - 0(No drift) 6a. Left Leg: Motor (5-second hold - always test supine) - 0(No drift) 6b. Right Leg: Motor (5-second hold - always test supine) - 2(Drift, some effort against gravity) 7. Limb Ataxia (finger/nose \T\ heel/clarke - test with eyes open) - 0(Absent) 8. Sensory Loss (pinprick arms/legs/face) - 1(Mild to moderate loss) 9. Best Language: Aphasia (description/naming/reading) - 0(No aphasia) 10. Dysarthria (speech clarity - read or repeat words) - 0(Normal) 11. Extinction and Inattention (visual/tactile/auditory/spatial/personal) - 0(No abnormality) Initials: bp NIH Stroke Scale - NIH Stroke Score Date: 07/12/2021 Time: 11:42 Total Score = 3 1a. Level of Consciousness (LOC) - 0(Alert) 1b. Level of Consciousness (LOC) (Month \T\ Age) - 0(Both) 1c. LOC Commands (Open \T\ Closes Eyes/Scrap Sorter) - 0(Both) 2. Best Gaze (Lateral Gaze Paresis) - 0(Normal) 3. Visual Field Loss - 0(No visual loss) 4. Facial Palsy - 0(Normal) 5a. Left Arm: Motor (10-second hold) - 0(No drift) 5b. Right Arm: Motor (10-second hold) - 0(No drift) 6a. Left Leg: Motor (5-second hold - always test supine) - 0(No drift) 6b. Right Leg: Motor (5-second hold - always test supine) - 2(Drift, some effort against gravity) 7. Limb Ataxia (finger/nose \T\ heel/clarke - test with eyes open) - 0(Absent) 8. Sensory Loss (pinprick arms/legs/face) - 1(Mild to moderate loss) 9. Best Language: Aphasia (description/naming/reading) - 0(No aphasia) 10. Dysarthria (speech clarity - read or repeat words) - 0(Normal) 11. Extinction and Inattention (visual/tactile/auditory/spatial/personal) - 0(No abnormality) Initials: rn Signatures: Dispatcher [employer] Karely Grayson RN RN bb Nieto, Roman, MD MD rn Hall, Patricia, RN RN ph Moreno, Amanda am2 Peltier, Brian, RN RN bp Parker, Tiffany tp1 Corrections: (The following items were deleted from the chart) 12:35 12:10 The patient has not been NPO before screening. The patient is alert, and bp able to follow commands. The patient does not exhibit slurred or garbled speech. The patient is not exhibiting difficulty speaking. The patient does not exhibit difficulty understanding words. The patient is able to swallow own secretions with no drooling or need for suction. Patient tolerated one teaspoon of water. No drooling, immediate coughing, gurgling, or clearing of the throat was noted. The patient tolerated 90mL of water. No drooling, immediate coughing, gurgling, or clearing of the throat was noted. The patient passed the bedside swallow screening. Oral medications may be given as ordered. Contact Physician for further diet orders. bp
[2021-07-12] MEDS ORDERED: ACETAMINOPHEN 500 MG TAB PO PRN (13:12)
[2021-07-12] MEDS ORDERED: ONDANSETRON 4 MG/2 ML VIAL IV PRN (13:12)
[2021-07-12] MEDS: ENOXAPARIN 40 MG/0.4 ML SQ SCH (14:00)
[2021-07-12] MEDS: NA CHLORIDE 0.9% 1,000 ML IV SCH (14:00)
--- NOTE | 2021-07-12 14:40 | RAD REPORT ---
EXAM DESCRIPTION: MRI - MRA Head Wo Cont - 07/12/2021 2:26 pm CLINICAL HISTORY: Stroke protocol, right-sided weakness, slurred speech, syncope COMPARISON: CT head same date, MRI brain same date TECHNIQUE: Axial and coronal 3D [id number] image acquisition was performed. 3D rotational images were generated with source and reconstruction images reviewed. Horizontal and vertical axis rotation al views generated using MIP protocol. FINDINGS: From skullbase determination the bilateral internal carotid arteries show no significant s tenoses. There is minimal signal loss related to calcifications. This does not cause significant jenn nal narrowing. Mild atherosclerotic changes are present in the left ROSEMARY A1 segment and left middle ce rebral artery M1 -M2 branch point. Minimal atherosclerotic changes are present in the bilateral poste rior cerebral arteries without significant luminal narrowing. Basilar and distal vertebral arteries s how no significant findings. Anterior communicating artery is present. No named branch occlusion, vasculitis or other emergent vascular finding. IMPRESSION: Mild atherosclerotic changes are present as detailed. No occlusion or other emergent vas cular finding.
--- NOTE | 2021-07-12 14:43 | RAD REPORT ---
EXAM DESCRIPTION: MRI - Brain W/Wo Cont - 07/12/2021 2:27 pm CLINICAL HISTORY: SLURRED SPEECH, right-sided weakness, stroke protocol COMPARISON: MRA Head Wo Cont dated 07/12/2021, CT head same date TECHNIQUE: Sagittal and axial T1-weighted images were obtained. Axial PD/heavily T2-weighted and T2- FLAIR images were obtained along with axial DWI/ADC mapping sequences. Coronal heavily T2 weighted s equence obtained. Axial and coronal post-contrast T1-weighted images were also obtained. A 12 ml Mul tihance contrast following utilized. FINDINGS: No intracranial hemorrhage, mass or acute infarction. There is no edema or shift of midli ne structures. No extra-axial fluid collections. Joe-matter/white matter junction is preserved. Sig nal voids are seen as a normal finding in the major intracranial vessels. The patient has only mild a trophy with ventricles in proportion to any volume loss. Numerous nonenhancing T2/IR white matter sig nal abnormalities are present in each cerebral hemisphere. The basal ganglia, thalamus and brainstem tissues are spared. Post-contrast images show normal enhancement. No dural thickening. Mastoid air cells and paranasal sinuses are clear. No globe or orbital content abnormality. IMPRESSION: No acute infarction is present. No acute intracranial finding seen. Moderate severity chronic ischemic changes are present with mild atrophy.
--- NOTE | 2021-07-12 14:45 | RAD REPORT ---
EXAM DESCRIPTION: MRI - MRA Neck W/Wo Cont - 07/12/2021 2:27 pm CLINICAL HISTORY: Stroke protocol study, slurred speech, right-sided weakness COMPARISON: MRA head same date, CT head same date, MRI brain same date TECHNIQUE: MR angiography of the cervical vasculature performed. Coronal imaging plane acquisition u tilized. A 12th MultiHance contrast volume was utilized. Coronal reformatted images were generated an d reviewed. Vertical axis 3D rotational projections obtained using maximum intensity projection jessica col. FINDINGS: Aortic arch is 3 vessel configuration. There is minimal narrowing at the origin of the lef t common carotid artery. No abnormality at the origin of the codominant vertebral arteries. Bilateral common carotid and internal carotid arteries show no significant stenoses. There is no dissection. T he vertebral arteries and basilar arteries also without significant finding. No vasculitis, dissectio n, occlusion or other significant process seen. IMPRESSION: MRA neck examination shows no significant or suspicious finding.
[2021-07-12] MEDS: IPRATROPIUM BROM 0.5MG/2.5ML NEB SCH ×2 (15:30→20:50)
[2021-07-12] MEDS: ALBUTEROL 2.5 MG/3 ML NEB SOL NEB SCH ×2 (15:30→20:50)
[2021-07-12] MEDS ORDERED: ALBUTEROL 2.5 MG/3 ML NEB SOL ONE ×2 (15:32→21:01)
[2021-07-12] MEDS ORDERED: IPRATROPIUM BROM 0.5MG/2.5ML ONE ×2 (15:32→21:02)
--- NOTE | 2021-07-12 17:51 | P.HP ---
Certification for Inpatient Patient admitted to: Inpatient With expected LOS: >2 Midnights Patient will require the following post-hospital care: None Practitioner: I am a practitioner with admitting privileges, knowledge of patient current condition, hospital course, and medical plan of care. Services: Services provided to patient in accordance with Admission requirements found in Title 42 Section 412.3 of the Code of Federal Regulations Patient History Date of Service: 07/12/21 Reason for admission: Mental status History of Present Illness: Patient is a 81-year-old female who came to the hospital with confusion. Patient was worked up in the emergency room for an acute CVA. MRI has been unremarkable. Patient's mentation remains abnormal. Allergies acetaminophen Allergy (Severe, Verified 01/06/18 13:13) hives, itching, rapid heart rate hydrocodone [From Vicodin] Allergy (Severe, Verified 01/06/18 13:13) hives, itching, rapid heart rate pentazocine [From Talwin] Allergy (Severe, Verified 01/06/18 13:13) hives, itching, rapid heart rate tramadol Allergy (Intermediate, Verified 01/06/18 13:13) Itching, dizziness, hallucinations codeine Adverse Reaction (Mild, Verified 01/06/18 13:13) Nausea/Vomiting Home Medications: Docusate [Colace Cap*] 2 tab PO DAILY 02/04/16 Loratadine [Claritin] 10 mg PO DAILY 02/04/16 Levothyroxine Sodium 50 mcg PO DAILY 01/06/18 Carbidopa/Levodopa [Rytary ER 61.25 mg-245 mg Cap] 1 cap PO TID 12/23/18 Review of Systems 10-point ROS is otherwise unremarkable Physical Examination - Physical Exam General: Alert, In no apparent distress HEENT: Atraumatic, PERRLA, Mucous membr. moist/pink, EOMI, Sclerae nonicteric Neck: Supple, 2+ carotid pulse no bruit, No LAD, Without JVD or thyroid abnormality Respiratory: Clear to auscultation bilaterally, Normal air movement Cardiovascular: Regular rate/rhythm, Normal S1 S2 Gastrointestinal: Normal bowel sounds, No tenderness Musculoskeletal: No tenderness Integumentary: No rashes Neurological: Normal gait, Normal speech, Normal strength at 5/5 x4 extr, Normal tone, Normal affect Lymphatics: No axilla or inguinal lymphadenopathy - Studies Laboratory Data (last 24 hrs) 07/12/21 11:41: PT 11.5, INR 1.04, APTT 35.3 07/12/21 11:41: WBC 4.40, Hgb 13.8, Hct 39.5, Plt Count 162 07/12/21 11:41: Sodium 139, Potassium 3.9, BUN 19 H, Creatinine 0.89, Glucose 93 Assessment & Plan - Problems (Diagnosis) (1) AMS (altered mental status) Current Visit: Yes Status: Acute - Advance Directives Does patient have a Living Will: Yes Does patient have a Durable POA for Healthcare: Yes
[2021-07-12] MEDS ORDERED: NA CHLORIDE 0.9% 1,000 ML ONE (18:16)
[2021-07-12] MEDS ORDERED: ENOXAPARIN 40 MG/0.4 ML SQ ONE (18:16)
--- NOTE | 2021-07-12 20:03 | RAD REPORT ---
EXAM DESCRIPTION: - CP - 07/12/2021 7:49 pm CLINICAL HISTORY: stroke COMPARISON: <Comparisons> TECHNIQUE: Real-time sonographic evaluation of bilateral carotid and vertebral systems was performed . Joe scale and Doppler interrogation were performed with waveform tracing bilaterally. FINDINGS: Normal high resistance waveforms are noted in both external carotid arteries. The common c arotid arteries and internal carotid arteries show normal low resistance waveforms. Minimal plaquing changes are present in the right carotid bulb with no significant luminal narrowing. Peak systolic and end diastolic velocity values and the ICA/CCA ratios are in the non-hemodynamicall y significant range. Antegrade flow seen in both vertebral arteries. Velocity values and ratios were recorded and are retained in the patient's imaging records. IMPRESSION: No significant atherosclerotic changes noted. No evidence of a hemodynamically significant stenosis.
[2021-07-12] MEDS ORDERED: ATORVASTATIN 80 MG TAB PO SCH (21:00)
[2021-07-13] MEDS: NAPROXEN 250 MG TAB PO PRN ×2 (00:24→10:45)
[2021-07-13] MEDS: IPRATROPIUM BROM 0.5MG/2.5ML NEB SCH ×3 (01:40→14:55)
[2021-07-13] MEDS: ALBUTEROL 2.5 MG/3 ML NEB SOL NEB SCH ×3 (01:45→14:55)
[2021-07-13 05:42] LABS: Absolute Lymphocytes (CBC) 0.9 K/uL (0.7-4.9); Hematocrit 35.6 % (36.0-45.0); MPV 9.1 fL (7.6-11.3); RBC Red Blood Cell Count 3.55 M/uL (3.86-4.86)
[2021-07-13 06:03] LABS: Albumin 3.7 g/dL (3.4-5.0); Bilirubin Total 0.5 mg/dL (0.2-1.0); Magnesium 2.3 mg/dL (1.8-2.4); Potassium 3.6 mmol/L (3.5-5.1); Protein, Total 6.2 g/dL (6.4-8.2)
[2021-07-13 07:32] VITALS: BMI 17.9
[2021-07-13 08:41] VITALS: O2SAT 97
[2021-07-13] MEDS: ENOXAPARIN 40 MG/0.4 ML SQ SCH (08:52)
[2021-07-13] MEDS: NA CHLORIDE 0.9% 1,000 ML IV SCH (08:56)
[2021-07-13] MEDS ORDERED: POTASSIUM CL SA 10 MEQ TAB PO ONE (09:00)
[2021-07-13] MEDS ORDERED: CLOPIDOGREL 75 MG TABLET PO SCH (09:00)
[2021-07-13] MEDS ORDERED: ASPIRIN EC 81 MG TAB PO SCH (09:00)
[2021-07-13] MEDS: CARBIDOPA LEVODOPA ENTA PO SCH ×2 (09:30→14:21)
[2021-07-13] MEDS ORDERED: AZITHROMYCIN 500 MG PO SCH (09:30)
[2021-07-13] MEDS ORDERED: ETHAMBUTOL HCL 400 MG TAB PO SCH (10:00)
[2021-07-13] MEDS ORDERED: levETIRAcetam 500 MG in NA CHLORIDE 0.9% 100 ML IV ONE ×2 (12:00→12:30)
[2021-07-13] MEDS ORDERED: HOME MED 1 EA UNK (Midodrine Hcl [Midodrine Hcl] 10 MG Tablet) PO SCH (14:00)
[2021-07-13 17:15] VITALS: BP 121/61; TEMP 97.5
--- NOTE | 2021-07-13 19:36 | CON ---
Reason For Consultation: Consultation called because of a possible TIA or seizure. History Of Present Illness: Ms. Armenta is a 81-year-old right-handed patient with report ed Parkinson disease, atrial fibrillation, followed by a neurologist in [place], who developed right upper extremity tingling in the fifth digit that spread proximally to the elbow, arm, shoulder, and t hen apparently involved the trunk on the right as well as the right lower extremity. There was some reported confusion, but that is unclear. Symptoms began around 6:05 on 07/12/2021, and the patient's symptoms appear to fluctuate and she has noted that similar episodes have occurred for about 5 times in the last 2 weeks. There was a mild headache and some potential right-sided weakness with these s ymptoms. She came to [facility] at 11:28, which is around 5 hours and 23 minutes after onse t of symptoms and was therefore not in consideration for tPA. In any event, her brain CT scan was ne gative and her brain MRI also unremarkable for any acute ischemia or hemorrhagic change. Small vesse l disease identified. MRA of her neck and head showed no significant abnormality. CT angiogram also of the head showed no significant abnormalities. Her carotid Doppler studies show no evidence of he modynamically significant stenosis. Blood work revealed essentially unremarkable complete blood coun t with differential, basic metabolic panel, liver function studies, and cholesterol panel. Her COVID test was negative. Chest x-ray showed no abnormalities. The patient received IV hydration along wi aspirin 162 mg, Lipitor 80 mg, Plavix 75 mg, Lovenox for DVT prophylaxis. She has been on ethambu tish along with Synthroid for hypothyroidism. She does note that there is no ongoing confusion and ve ry minimal symptoms involving tingling in the right fifth digit. Past Medical History: As noted. Allergies: CODEINE, HYDROCODONE, ACETAMINOPHEN, AND TRAMADOL. Family History: No seizures, noncontributory. Medications: Are noted. Review of Systems: She denies any recent fevers or chills. No nausea, vomiting, myalgias, arthralgias, headache, weight change, rash, although in the past, she has had migraines but just mild headaches recently. Physical Examination: Vital Signs: Blood pressure 136/65, pulse 90, respiratory rate 12, temperature 97.9, oxygen saturati on 97% to 100% room air, weight 97 pounds, height 5 feet 2 inches, BMI 17. General: Ms. Armenta is sitting in a chair beside the bed. She is in no acute distress. HEENT: She appears normocephalic, atraumatic. Sclerae are anicteric. Oropharynx pink and moist. Neck: Supple. Chest: Clear. Heart: Regular. Extremities: Show no clubbing, cyanosis, or edema. Neurologic: Alert, oriented to person, place, time, and situation. She has no expressive or recepti ve aphasias and no obvious deficits. She had a normal MMSE test. She only missed 1 for delayed verb al recall. No cranial nerve deficits. Motor; she has no obvious weakness in the face, arm, or legs. Sensory exam, there is no loss of sensation in any significant fashion in the upper and lower extre mities and also she had a negative Tinel's, negative Phalen's at the wrist on the right, at the cubit al tunnel, Guyon tunnel, and carpal tunnel areas. She did have a positive Spurling's test when turni ng her head to the right, lifting up the arm pain shot into the right arm, forearm, and fifth and fou rth digits. Gait, she has good stance, right arm swing, symmetric reflexes. Assessment: Ms. Armenta is a 81-year-old patient with paroxysmal episodes of sensory disturbance in the right upper extremity marching from the right hand proximally to the forearm, arms, chest, and l egs. She has not had a stroke by MRI. Her differential diagnosis does include complicated migraines and she has a history of migraine, also complex partial seizures should be considered. In addition, cervical myelopathy with radiculopathy may be considered. Plan: 1.MRI of the cervical spine without contrast. 2.Routine electroencephalogram. 3.Consider outpatient epilepsy monitoring for event characterization. 4.Consider gabapentin 100 mg twice daily. 5.Continue aspirin, Plavix, Lovenox. 6.She has history of atrial fibrillation, recurrent episodes of fibrillation. She had follow up wit h her crop consultant. Please note that she does have a neurologist in [place] and may follow up with her neurologist within a month. VINCE/VITA Voice ID: [id number] Report ID: [id number]
[2021-07-13] MEDS ORDERED: ATORVASTATIN 10 MG TAB PO SCH (21:00)
[2021-07-13] MEDS ORDERED: MIDODRINE HCL 5 MG TABLET PO SCH (21:00)
[2021-07-14] MEDS ORDERED: LEVOTHYROXINE SOD 0.05 MG TABLET PO SCH (06:00)
[2021-07-14] MEDS ORDERED: PANTOPRAZOLE 40MG TABLET PO SCH (09:00)
[2021-07-15] MEDS ORDERED: RIFAMPIN 300 MG PO SCH (06:00)
--- NOTE | 2021-07-15 09:31 | EKG ---
Test Date: 2021-07-12 Test Time: 12:08:35 Financial Aid Director: BP MEASUREMENT RESULTS: Intervals: Rate: 79 ND: 150 QRSD: 80 QT: 376 QTc: 431 [place]: P: 90 ND: 150 QRS: 101 T: 73 INTERPRETIVE STATEMENTS: Suspect arm lead reversal, interpretation assumes no reversal Normal sinus rhythm Septal infarct, age undetermined Possible Lateral infarct, age undetermined Abnormal ECG Compared to ECG 01/06/2018 13:47:21 No significant changes Electronically Signed On 07-15-21 09:26:12 CDT by Francis Pacheco
== END 2021-07-13 18:51 | disposition home or self-care (01) ==
LOC: ER 11:27 → ERHOLD 13:13 → 2ND 21:41
PROVIDERS: ADMIT Hospitalist; ATTEND Hospitalist
DX: R41.82 Altered mental status, unspecified (principal); I48.91 Unspecified atrial fibrillation; R20.2 Paresthesia of skin; R53.1 Weakness; G20 Parkinson's disease; E03.9 Hypothyroidism, unspecified; Z88.6 Allergy status to analgesic agent; Z20.822 Contact with and (suspected) exposure to COVID-19
CPT/HCPCS: 93005; 85025 ×2; 80048; 36415; 83735; 84100; 85610; 80061; 82565; 82947; 85730; 80053; 70496; 70450; 71045; 93880; 70553; 70544; 70549; 97116 ×2; 97161; 97530; 94640; 99285; U0003; Q9967; A9577; J1650 ×2; J1953 ×2; J7030 ×2; G0378 ×2

== ENCOUNTER 2022-12-11 06:08 | Day surgery (SDC) | payer OTHER ==
[2022-12-11] MEDS ORDERED: Ringers Lactate 1,000 ML IV ONE (06:38)
[2022-12-11] MEDS ORDERED: propofoL 200 MG/20 ML VIAL IV ONE (06:44)
[2022-12-11] MEDS ORDERED: MIDAZOLAM HCL 2 MG/2 ML INJ ONE (06:45)
[2022-12-11] MEDS ORDERED: FENTANYL CITR 100 MCG/2 ML ONE (06:45)
[2022-12-11] MEDS ORDERED: ROCURONIUM 50 MG/5 ML VIAL IV ONE (06:45)
[2022-12-11] MEDS ORDERED: LIDOCAINE 2% MPF 5 ML VIAL ONE (06:45)
[2022-12-11] MEDS ORDERED: ONDANSETRON 4 MG/2 ML VIAL ONE (06:45)
[2022-12-11] MEDS ORDERED: LIDOCAINE HCL/EPINEPHRINE 20 ML MDV ONE (06:54)
[2022-12-11] MEDS ORDERED: CEFAZOLIN SODIUM 1 GM/VIAL ONE (06:54)
[2022-12-11] MEDS ORDERED: BUPIVACAINE 0.25% PF 30 ML VIAL ONE (06:54)
[2022-12-11] MEDS ORDERED: NS 0.9% VIAL 10 ML ONE (06:54)
[2022-12-11] MEDS: CEFAZOLIN SODIUM 2 GM/VIAL ONE ×2 (07:12→07:20)
[2022-12-11] MEDS ORDERED: dexAMETHasone 10 MG/ML VIAL ONE (07:49)
[2022-12-11] MEDS ORDERED: EPHEDRINE SULF 50 MG/ML VIAL ONE (08:03)
[2022-12-11 09:54] VITALS: BP 162/66; TEMP 96.8; O2SAT 98
--- NOTE | 2022-12-11 09:54 | RAD REPORT ---
EXAM DESCRIPTION: RAD - Fluoroscopy <1 Hour - 12/11/2022 9:12 am CLINICAL HISTORY: SACRAL NEURO MODULATION COMPARISON: No comparisons FINDINGS: Fluoroscopy time: 0.5 minutes.
--- NOTE | 2022-12-13 23:28 | OP ---
Date of Procedure: 12/11/2022 Surgeon: Smitha Cadena MD Preoperative Diagnoses: Refractory urge urinary incontinence. The patient with history of Parkinson disease. Outpatient showed a beneficial effect with more than 50% reduction in her urgen cy and frequency as well as leakage. Her outpatient leads were removed, and she was conse nted for implantation of a permanent lead under fluoroscopy and placement of subcutaneous neurostimul ator followed by electrical and electronic lab analysis and programming. Procedure In Detail: After informed consent was verified, the patient was taken back to OR, 2 g of A ncef were given, SCDs were placed. General anesthesia was given. Then, she was placed in a prone po sition on the operating table according to the OR protocol. Pillows were placed under the lower abdo men to flatten the sacrum and under the shins to allow the toes to dangle freely. The patient was pr epped and draped in a sterile fashion using ChloraPrep. The C-arm was draped and moved into the AP p osition to provide fluoroscopic mapping of the sacral region, which included the marking of the midli ne of the sacrum, SI joint, the sciatic notches, and the medial border of the sacral foramina. She a pparently has significant amount of hardware in her upper spine. No other abnormalities were seen. 1% lidocaine with epinephrine 10 cc was injected after marking the landmarks, a 9 cm in the midline f rom the tip of the coccyx and cephalad and then at 10 cm, which is 1 cm higher. Marking was placed i n the midline and then 2 horizontal lines were drawn, 2 cm on either side of the midline at 10 cm and 11 cm. A 17 sized foramen needle was introduced approximately 2 cm above the sciatic notch, 2 cm lateral to the sacral foramina feeling for the foraminal margins until S3 was identified and penetrated. The de pth of the foramen needle was confirmed and adjusted fluoroscopically. Proper needle position was co nfirmed by testing the device. There was an excellent plantar toe flexion; however, no Florentino were seen. No evidence of any hip rotation. On adjusting the tip of the needle proper to the anterior ed ge of the sacrum. The test was repeated several times, but each time most significant effect that wa s seen was just toe flexion. On the opposite side, a foramen needle was placed, then the S3 foramina entered, confirmed fluoroscop ically. However, there was no response of Florentino or toes on this side, potentially indicating some form of nerve entrapment or impediment for placement of the needle properly. The needle from the rig ht side was taken out, proceeded with left-sided procedure. Proper needle position was confirmed through AP and lateral views as well. The entry point was appro priate. The foraminal stylet was removed. Directional guide was placed and confirmed fluoroscopical ly. The foramen needle was removed and the incision was then made carefully to the directional guide through the fascial layer. The lead introducer sheath with the dilator was placed over the directio nal guide and directed into foramen to ensure the radiopaque marker of the lead introducer, did not e xtend beyond the anterior edge of the sacrum. The dilator was unlocked and removed along with the di rectional guide. The lead was then placed through the introducer sheath to the first white line. Po sition was checked. There was only a toe on leads 2 and 3. The lead 0 and 1 had no response at all. No Florentino on all 4. By pulling the lead back slightly, we were able to get a position with leads 1, 2 and 3. There was g ood toe response for plantar flexion of the toe in this position, most likely due to the scar in the back, maybe the first electrode would not turn, to remain proximal to the nerve and that is why we gonzalez ve the side effects. As this was a satisfactory positioning and this gives the patient many options to cope with her sympt oms adequately with 3 working electrodes, we went ahead and took the plastic dilator out under direct vision with fluoroscopic guidance. The lead was then adjusted slightly as it had been pushed back s lightly in tugging on the lead while close to the skin. Once this was satisfactorily adjusted, each electrode was tested and location of the patient's plantar flexion was seen with no Florentino. Further incision was made into the subcutaneous tissue posterior to the iliac crest lateral to the sa kelly on the left side. Line dissection was continued until the gluteal fascia was identified and hem ostasis was achieved using the Bovie. This allowed sufficient pocket size for the neurostimulator. Tunneling tool with straw placed from the lead exit site subcutaneously to the incised pocket site. The tunneling tool was removed and the lead was fed through the straw and pulled out on other end. T he lead was cleansed off bodily fluids and dried. The lead was then inserted into the InterStim neur ostimulator and mental bands were aligned and the blue lead tip clearly visible at the distal portion of the stimulator head. The single set screw was tightened with a hex wrench. Once we tried to check the impedance, this did not pass, so I had to go back and get the wire placeme nt verified. While doing this, the wire would slide out through the stimulator despite tightening th e screw, so a new screwdriver was taken to see if this would work better and the lead remained nicely tucked into the neurostimulator. The wire was wound in an anticlockwise fashion and placed inferior to the neurostimulator. Pockets were irrigated with sterile water and antibiotic solution, cleaned up. The fascia was closed with interrupted 3-0 Vicryl and subcutaneous tissues with interrupted 5-0 Monocryl. Once all the lead sites were also closed at the level of the skin and buried [id number] ht, then the patient was flipped back onto her supine position. She was recovered from anesthesia. Instrument, needle, and sponge counts were correct. EBL was minimal. She will be programmed and she will see me back in 3 weeks. DES/VITA Voice ID: [id number] Report ID: [id number]
== END 2022-12-11 10:15 | disposition home or self-care (01) ==
LOC: PRE 06:08 → OR 10:15
PROVIDERS: ATTEND Obstetrics & Gynecology
PROC: 0JH73BZ Insertion of Single Array Stimulator Generator into Back Subcutaneous Tissue and Fascia, Percutaneous Approach (ICD-10-PCS; principal; 2022-12-11 07:00)
DX: N39.41 Urge incontinence (principal); R39.14 Feeling of incomplete bladder emptying; G20 Parkinson's disease; M81.0 Age-related osteoporosis without current pathological fracture
CPT/HCPCS: 64590; A4216; J2704; J2001; J3010; J1100; J2405; J7120; J0690; 76000; J2250